=== PATIENT | female | born 1950 | race Caucasian/White ===

== ENCOUNTER 2024-06-08 14:20 | Inpatient (IN) | payer OTHER, SELFPAY ==
[2024-06-08] VITALS (51 sets, daily range): BP systolic 91–178; BP diastolic 50–136; BMI 38.9; BMI 37.4
[2024-06-08 12:07] LABS: Glucose - Point of Care 99 mg/dl (70-99)
--- NOTE | 2024-06-08 12:09 | ED.GENMED ---
History of Present Illness
General
Chief Complaint: Overdose Intentional
Source: ambulance crew
Time Seen by Provider: 06/08/24 12:09
History of Present Illness
History of Present Illness:
73-year-old female brought to the emergency by ambulance after an intentional overdose. Patient evidently consumed an unknown quantity of lorazepam tablet 0.5 mg. The bottle when prescribed contained 30 tablets. For her left. The prescription
was filled on April 15 and was a as needed prescription. There is no way to know how many pills were in the bottle prior to her taking them. There was a bottle of acetaminophen also within the region. Unclear if she took any but the paramedics felt
that bottle was mostly full. No evidence for alcohol ingestion. Paramedics state the patient was awake and alert and conversant when they initially interacted with her
Past History
Past History
ED Past Medical History: GERD, HTN, Psychiatric, Other (Diverticulitis) and Other (Iron deficiency anemia)
ED Past Surgical History: Gynecological, Orthopedic and Other
Social History
Tobacco: Non-smoker
Alcohol: None
Drug: None
Personal:
Living: with family
Employment: Not employed
Family History
Family History: Other (Noncontributory)
Phy Exam
Physical Exam
Physical Exam:
General: On initial evaluation patient was somnolent but arousable
Vitals: unremarkable
Head: Atraumatic
Eyes: Pupils equal, EOMI
Throat: Airway intact, no exudates
Neck: Trachea midline
Lungs: Clear and equal b/l
Heart: Regular rate, no murmurs
Abd: Soft, Nontender, No pulsatile mass
Neuro: Grossly nonfocal
Skin: Warm, dry, no rash
Extremities: pulses equal b/l, no edema
Course
Orders/Labs/Results
Orders:
Orders
06/08/24 11:59
Electrocardiogram (*1) Urgent
Reason for Study: Other
Other Reason for Exam: Potential overdose
Bedside Glucose- Treatment ONCE
Cardiac Monitoring- Treatment ONCE
EKG- Treatment ONCE
IV Insert/Care/Rem.- Treatment PRN
Pulse Ox/spot Check [RESP] Urgent
Quantity: 1
06/08/24 12:11
Acetaminophen Urgent
Alcohol Urgent
Complete Blood Count/With Diff Urgent
Comprehensive Metabolic Panel Urgent
Salicylate Urgent
Triglycerides Urgent
Comment: ADD ON
06/08/24 12:23
Chest X-ray Portable [CR Chest Portable - 1 View] Urgent
Comment:
Reason For Exam: post intubation
Reason Study Needs to be Portable: Unable to Transport
06/08/24 12:25
Etomidate [Amidate] 20 mg IV NOW STA
06/08/24 12:32
Propofol 1,000,000 Mcg/100 ml [Diprivan] 1,000,000 mcg in 100 ml .ROUTE .[facility]
06/08/24 12:58
0.9% Sodium Chloride 500 ml [Nss] 500 ml IV BOLUS
Propofol 1,000,000 Mcg/100 ml [Diprivan] 1,000,000 mcg in 100 ml IV NOW
Indication:: Light Sedation
Begin Infusion:: Now
Goal:: RASS 0 to -2
Maximum dose in mcg/kg/min:: 50
Initial dose based on RASS:: Yes
If RASS is:: +1 or pt hemodynamically unstable (SBP < 90mmHg), initiate at 10 mcg/kg/min
If RASS is:: +2, initiate at 20 mcg/kg/min
If RASS is:: greater than or equal to +3, initiate at 30 mcg/kg/min
Titration Instructions:: Titrate by 5-10 mcg/kg/min every 5 minutes until RASS 0 to -2 achieved.
Taper Instructions:: If RASS is at or below goal for 4 consecutive hours decrease infusion by
Taper Instructions:: 5-10 mcg/kg/min every 2 hours to off.
Over-sedation Instructions:: If CPOT 0-2 (at goal) AND RASS -3 to -5 (below goal) decrease sedative by
Over-sedation Instructions:: 50% first. If pain score remains at goal and RASS remains below goal in
Over-sedation Instructions:: 1 hour, decrease opioid infusion by 50%.
Notify provider:: immediately if patient exhibits signs/symptoms of propofol-related
Notify provider:: infusion syndrome.
Additional Instructions:: Patient MUST be mechanically ventilated and MUST receive analgesia.
06/08/24 13:01
Add On- LAB Urgent
Tests Added?: triglycerides
06/08/24 13:02
Restraints - Non Violent As Directed
Justification-Patient:: 2-Protective Intervention
Restraint Type-: Soft Limb-R Wrist/4 rails
Soft Limb-L Wrist/4rails
Apply From (date): 06/08/24
Apply from (time): 13:02
Remove (date): 06/09/24
Remove (time): 23:59
06/08/24 13:31
Fentanyl Citrate/Pf [Sublimaze] 100 mcg .ROUTE .[facility]
Fentanyl Citrate/Pf [Sublimaze] 50 mcg IV [id number] PRN
Fentanyl Citrate/Pf [Sublimaze] 90 mcg IV NOW STA
06/08/24 13:39
FentaNYL 1,000 MCG/100 ML [Sublimaze] 1,000 mcg in 100 ml IV NOW
Indication:: Light Sedation
Begin Infusion:: Now
Goal:: pain score </= 1, CPOT 0-2
Maximum dose in mcg/hr:: 300
Continue currently infusing dose and titrate:: Yes
Titration Instructions:: Titrate every 30 minutes if patient exhibits signs of pain or discomfort
Titration Instructions:: (pain score >/= 2, CPOT >/= 3).
Titration Instructions:: Administer bolus dose and increase infusion by 25 mcg/hr.
Taper Instructions:: If pain score at goal for 4 consecutive hours (pain score </= 1, CPOT 0-2)
Taper Instructions:: decrease infusion by 50 mcg/hr every 2 hours.
Taper Instructions:: When dose </= 50 mcg/hr may turn infusion off and consider PRN
Taper Instructions:: intermittent bolus doses only.
Over-sedation Instructions:: If CPOT 0-2 (goal) and RASS -3 to -5 (below goal) decrease sedative by 50%
Over-sedation Instructions:: first. If pain score remains at goal and RASS remains below goal in 1 hour,
Over-sedation Instructions:: decrease opioid infusion by 50%.
Notify provider:: immediately if pt exhibits: chest wall rigidity, hemodynamic instability,
Notify provider:: agitation/pain despite maximum dosing, pain when RASS below goal.
Additional Instructions:: Patient MUST be mechanically ventilated.
06/08/24 13:55
Admit/Transfer Patient As Directed
Co-Sign Provider:
Level of Care: Inpatient admission
Assign to:: ICU
Physician / Group: Allan Merritt
Diagnosis: Intentional Overdose Ativan
Reason for Hospitalization: Intentional Overdose Ativan
Expected length of stay greater than two midnights?: Yes
ELOS- Estimated Length of Stay in days: 5
I certify the patient meets the requirements for IP care: Yes
Arterial Blood Gas Routine
%Oxygen/Room Air: on vent
06/08/24 14:07
Code Status As Directed
Resuscitation Status: Full Code
06/08/24 14:09
Automobile Bumper Straightener Consult Routine
Consulting Provider: Gricelda Johnson
Was physician already notified: Yes
Reason for consult: intententional benzo overdose intubated
06/08/24 15:04
Labetalol HCl [Trandate] 10 mg IV Q6HPRN PRN
Metoprolol [Lopressor] 5 mg IV Q4HPRN PRN
Nitroglycerin Sublingual [Nitrostat (Sublingual)] 0.4 mg SL [id number] PRN
Pantoprazole [Protonix IV] 40 mg IV DAILY
Propofol 1,000,000 Mcg/100 ml [Diprivan] 1,000,000 mcg in 100 ml IV PER PROTOCOL
Indication:: Light Sedation
Begin Infusion:: Now
Goal:: RASS 0 to -2
Maximum dose in mcg/kg/min:: 50
Continue currently infusion dose and titrate:: Yes
Titration Instructions:: Titrate by 5-10 mcg/kg/min every 5 minutes until RASS 0 to -2 achieved.
Taper Instructions:: If RASS is at or below goal for 4 consecutive hours decrease infusion by
Taper Instructions:: 5-10 mcg/kg/min every 2 hours to off.
Over-sedation Instructions:: If CPOT 0-2 (at goal) AND RASS -3 to -5 (below goal) decrease sedative by
Over-sedation Instructions:: 50% first. If pain score remains at goal and RASS remains below goal in
Over-sedation Instructions:: 1 hour, decrease opioid infusion by 50%.
Notify provider:: immediately if patient exhibits signs/symptoms of propofol-related
Notify provider:: infusion syndrome.
Additional Instructions:: Patient MUST be mechanically ventilated and MUST recieve analgesia
06/08/24 15:04
Bladder Scan As Directed
Follow Bladder Retention/Intermittent Cath Algorithm?: Yes
Frequency: Per Retention Algorithm
Comment: as per intermittent urinary catheter algorithm
Bladder Scan As Directed
Follow Bladder Retention/Intermittent Cath Algorithm?: Yes
PRN if no void in __ hours: 6
Frequency: Per Retention Algorithm
If Bladder Scan Result >: 400
then:: Straight cath
ECG as needed As Directed
ECG as needed for:: Chest Pain
Other reason
Other reason for ECG as needed:: new suspicion of ACS
Comment: At onset of Chest Pain and then Q__H x 2. draw Troponin with each ECG
Additional Instructions:: at onset of chest pain or new suspicion of ACS:
-- ECG and Troponin urgent now
-- then ECG and Troponin with each ECG every 3 hours x total of 3,
including ED or other inpatient ECG/troponins.
Intake/ Output As Directed
Frequency: Per unit guidelines
Notify MD As Directed
Notify physician if: if patient has chest pain or new suspicion of ACS
Straight Cath As Directed
Frequency: Per Retention Algorithm
Additional Instructions: as per intermittent urinary catheter algorithm
Straight Cath As Directed
Frequency: Per Retention Algorithm
Additional Instructions: straight cath as needed per acute urinary retention algorithm for 24 hrs
Additional Instructions: for bladder scan greater than 400 mL
Vital Signs As Directed
Frequency: Per unit guidelines
Weight As Directed
Frequency: Daily
DX Deep Vein Thrombosis Video Routine
06/08/24 17:12
Triglycerides Routine
Comment: baseline levels with propofol infusion
06/08/24 18:00
Enoxaparin Sodium [Lovenox] 40 mg SC QPM
06/09/24 08:00
Polyethylene Glycol Powder [Miralax] 17 grams TUBE DAILY
06/11/24 06:00
Triglycerides Q3D
Comment: every 72 hours while patient is on propofol
06/14/24 06:00
Triglycerides Q3D
Comment: every 72 hours while patient is on propofol
06/17/24 06:00
Triglycerides Q3D
Comment: every 72 hours while patient is on propofol
Abnormal Lab Results
06/08/24 06/08/24
12:11 13:55
RBC 3.31 L 10^6/uL
(4.20-5.40)
Hgb 10.2 L g/dL
(12.0-16.0)
Hct 31.7 L %
(37.0-47.0)
MCHC 32.2 L g/dL
(33.0-37.0)
Absolute Lymphs (auto) 1.1 L 10^3/uL
(1.2-3.4)
Lymphocytes % 18.7 L %
(20.5-51.1)
Monocytes % 10.4 H %
(1.7-9.3)
pCO2 38 H mmHg
(32-35)
pO2 173 H mmHg
(83-108)
ABG O2 Sat (Measured) 99.5 H %
(94-98)
Chloride 108 H mmol/L
(98-107)
BUN 28 H mg/dl
(7-17)
Glucose 101 H mg/dl
(70-99)
Salicylates < 1.0 L mg/dl
(2.0-20.0)
Acetaminophen < 10 L ug/ml
(10-30)
06/08/24 12:11
06/08/24 12:11
Vital Signs
Initial and Last Documented VS:
Initial Vital Signs
BP
130/81
06/08/24 12:00
Last Documented Vital Signs
Temp Pulse Resp BP Pulse Ox
99.7 F 89 15 139/79 100
06/09/24 12:00 06/09/24 14:00 06/09/24 14:00 06/09/24 12:07 06/09/24 14:00
Procedures
Intubations
Procedure completed by: myself
Method of Intubation: glidescope
Tube size (cm): 7.5
Placement confirmed by: auscutation, CXR, capnography and direct visualization
Breath sounds after intubation: equal
Intubation complications: no complications
MDM/Problems Addressed
Differential Diagnosis Includes:
Benzo diazepam overdose, polypharmacy overdose, alcohol intoxication, suicide attempt
MDM/Problems Addressed:
Patient presents with decreased mental status after ingesting a reportedly large amount of benzos. Patient had a prescription for lorazepam 0.5 mg and took an unknown quantity. The patient showed a concerning rapid decrease in mental status. She
was awake and alert when paramedics first met with her. Here in the emergency room she has become obtunded and responds with movement to painful stimulus. The initial plan was for observation and supportive care. However the patient was
exhibiting periods of apnea. Given her symptoms have rapidly progressed my concern is that her mental status will worsen before it improves. Therefore we proceeded to intubation. Intubation went smoothly. We will use propofol for sedation.
Patient will obviously require hospitalization to the intensive care unit.
*Radiology
Radiology exam reviewed: preliminary read by ED provider (Personally reviewed the patient's chest x-ray endotracheal tube and NG tube noted. NG tube looks to be coiled in the upper stomach.)
*Pulse Oximetry
Patient hypoxic: no
*EKG
Interpreted by ED Provider?: Yes
Interpretation: abnormal
Heart Rate: 140
Rate: tachycardiac
Rhythm: sinus tachycardia
Jewett: normal axis
Interval: normal interval
QRS Pattern: normal QRS
Ischemia: non-specific ST changes
*Associate Professor Of Musicology Interpretation
Rate: tachycardiac
Interpretation: abnormal
Rhythm: sinus tachycardia
*Critical Care Note
Total Time (30-74mins, 75-104mins- exclusive of procedures): 45 min
comment:
Critical care statement: A total of 45 minutes of critical care time was provided for this patient. This includes management of unstable vital signs, evaluation of the patient at bedside, reviewing the patient's pertinent medical records, discussion
with consultants, review of old EKGs and review of pertinent medical records. This time with separate from time utilized to perform the aforementioned documented procedures
ED Attending Note
-
Portions of this chart may have been created with voice recognition software.� Occasional wrong word or��sound alike� substitutions may have occurred due to the inherent limitations of voice recognition software.
Discharge Plan
Departure
Patient Disposition: Admit
Date of Disposition: 06/08/24
Time of Disposition: 12:42
Admit to: ICU
Presentation/result/management discussed w/ accepting MD/DO: Hospitalist
Condition: Serious
Discharge Problem:
Benzodiazepine overdose
Interventions
Interventions:
*General Assessment Last Done: 06/08/24 12:01
*Neglect/Abuse Screening Last Done: 06/08/24 12:01
*Nursing Disposition Last Done: 06/08/24 15:19
ED- Cardiac Assessment Last Done: 06/08/24 12:20
ED- Neurological Assessment Last Done: 06/08/24 12:20
ED-Psychological Assessment Last Done: 06/08/24 12:20
ED- Pulmonary Assessment Last Done: 06/08/24 12:20
Discharge Date and Time
Discharge Date/Time: 06/08/24 15:24
[2024-06-08 12:18] LABS: % Basophils 0.7 % (0-2); % Eosinophils 0.9 % (0-6); % Immature Granulocytes 0.2 % (0-0.5); % Lymphocytes 18.7 % (20.5-51.1); % Monocytes 10.4 % (1.7-9.3); % Neutrophils 69.1 % (42.2-75.2); Absolute Eosinophils 0.1 10^3/uL (0-0.7); Absolute Lymphocytes 1.1 10^3/uL (1.2-3.4); Absolute Monocytes 0.6 10^3/uL (0.1-0.6); Hematocrit 31.7 % (37.0-47.0); Hemoglobin 10.2 g/dL (12.0-16.0); Mean Corp Hgb Conc. 32.2 g/dL (33.0-37.0); Mean Corpuscular Hgb 30.8 pg (27.0-31.0); Mean Corpuscular Volume 95.8 fL (81.0-99.0); Mean Platelet Volume 9.1 fL (7.4-10.4); Nucleated Red Blood Cells % 0 %; Platelet Count 365 10^3/uL (130-400); Red Blood Cell Count 3.31 10^6/uL (4.20-5.40); Red Cell Dist. Width 13.2 % (11.5-14.5); White Blood Cell Count 5.8 10^3/uL (4.8-10.8)
[2024-06-08] MEDS: AMIDATE 20 MG IV (12:25)
--- NOTE | 2024-06-08 12:25 | EDRN ---
intubation time 12:25 pm by MD Gunn. All necessary intubation equipment at bedside. Attempt made with glidescope. 7.5 ETT, 21 @ lip. + end tidal color change. secured on right side. Bilateral breath sounds clear. 14 tajik OG tube placed.
[2024-06-08 12:33] LABS: ALT (SGPT) 14 U/L (0-35); AST (SGOT) 28 U/L (14-36); Albumin 3.9 g/dl (3.5-5.0); Alkaline Phosphatase 74 U/L (38-126); Blood Urea Nitrogen 28 mg/dl (7-17); Calcium 9.3 mg/dl (8.4-10.2); Carbon Dioxide 24 mmol/L (22-30); Chloride 108 mmol/L (98-107); Estimated Creatinine Clearance 71 ml/min; Glucose 101 mg/dl (70-99); Potassium 4.1 mmol/L (3.5-5.1); Sodium 140 mmol/L (135-145); Total Bilirubin 0.4 mg/dl (0.2-1.3); Total Protein 6.7 g/dl (6.3-8.2); eGFR > 60.00
[2024-06-08] MEDS: DIPRIVAN 100 IV ×2 (12:38→23:05)
--- NOTE | 2024-06-08 12:44 | EDRN ---
Propofol gtt started @ 12:38. Dose started @ 10 10mcg/kg/min. Patient weight 90.4kg. Xray @ bedside @ 12:45 for portable. Bilateral upper wrist restraints applied @ 1246
[2024-06-08 12:58] LABS: Acetaminophen < 10 ug/ml (10-30); Salicylate < 1.0 mg/dl (2.0-20.0)
[2024-06-08] MEDS: NSS 500 IV (12:58)
[2024-06-08 13:00] LABS: Alcohol None Detected
--- NOTE | 2024-06-08 13:16 | HPS.HSE ---
Family Physician
-
Family Physician: MIGUE Mercedes
Chief Complaint
-
Intentional overdose benzo
History of Present Illness
73 female history of GERD diverticulosis hypertension brought in by ambulance after intentional overdose home as needed prescribed Ativan. Patient intubated at time of evaluation all of history from records and from patient's daughter Paulette's
report. Patient going through a divorce with her , had reportedly called her brother to say goodbye prompting family to contact emergency services. Patient was subsequently found at home with empty bottle prescribed as needed Ativan.
Refusing medical services. Family 302 her and she was subsequently brought to the ED. ED evaluation was concerning for progressive lethargy altered mental status. Patient had essentially become up to and did nonresponsive to painful stimulus
exhibiting episodes of apnea prompting intubation for airway protection. Hypotensive sinus tachycardia. Labs were negative for Tylenol salicylate levels rest of toxicology pending. Mild anemia otherwise CBC BMP unremarkable.
Medical History
Past Medical History
Past Medical History: Reports Other (as above)
Past Surgical History: Reports Other (as above)
Social History
Unable to obtain full social history at this time due to: Patient Intubation
Family History
Family History: Unable to Obtain
Allergies / Home Medications
Allergies reflects when Allergies were last updated in [facility].
Home Medications with original date entered in [facility]
Allergy/Medication List:
Allergies
Allergy/AdvReac Type Severity Reaction Status Date / Time
metronidazole [From Flagyl] Allergy IV- Verified 05/18/23 16:[address]
swelling
Penicillins Allergy Rash Verified 05/18/23 16:50
Home Medications
escitalopram oxalate 10 mg tablet 10 mg PO DAILY Mental Health/Anxiety 05/16/23
hydrochlorothiazide 25 mg tablet 25 mg PO DAILY Blood Pressure 05/16/23
losartan 100 mg tablet 50 mg PO DAILY Blood Pressure 05/16/23
pantoprazole 40 mg tablet,delayed release 40 mg PO DAILY #30 tabs 05/27/23
lorazepam 0.5 mg tablet 0.5 mg PO Q8HPRN PRN anxiety 06/08/24
meloxicam 15 mg tablet 15 mg PO DAILY 06/08/24
mesalamine 400 mg capsule (with delayed release tablets inside) 800 mg PO BID 06/08/24
Review of Systems
-
Unable to obtain full review of systems at this time due to: Patient Intubation
Physical Exam
Vital Signs
Vital Signs
Temp Pulse Resp BP Pulse Ox
98.1 F 129 16 177/113 100
06/08/24 12:01 06/08/24 13:00 06/08/24 13:00 06/08/24 13:00 06/08/24 13:00
Physical Exam
General: Other (as below)
Laboratory Results
-
06/08/24 12:11
06/08/24 12:11
Laboratory Results
Total Bilirubin 0.4 mg/dl (0.2-1.3) 06/08/24 12:11
AST 28 U/L (14-36) 06/08/24 12:11
ALT 14 U/L (0-35) 06/08/24 12:11
Alkaline Phosphatase 74 U/L (38-126) 06/08/24 12:11
Impression/Plan
-
Physical Exam
General: No pallor, cyanosis, or jaundice. Obesity
HEENT: Intubated pinpoint pupils b/l
NECK: Supple. No JVD Carotid Bruits
RESPIRATORY: Lungs clear to auscultation. Ventilatory machine noises
CVS: Sinus tachy. No murmur, rub or gallop.
ABDOMEN: Soft, non-tender. No distension. BS+/normal.
EXTREMITIES: No peripheral cyanosis or edema. Tattoo noted
EDUCATIONAL RESOURCE COORDINATOR: Sedated
IMPRESSION:
73 female history of GERD diverticulosis hypertension brought in by ambulance after intentional overdose home as needed prescribed Ativan. Patient intubated at time of evaluation all of history from records and from patient's daughter Paulette's
report. Patient going through a divorce with her , had reportedly called her brother to say goodbye prompting family to contact emergency services. Patient was subsequently found at home with empty bottle prescribed as needed Ativan.
Refusing medical services. Family 302 her and she was subsequently brought to the ED. ED evaluation was concerning for progressive lethargy altered mental status. Patient had essentially become up to and did nonresponsive to painful stimulus
exhibiting episodes of apnea prompting intubation for airway protection. Hypotensive sinus tachycardia. Labs were negative for Tylenol salicylate levels rest of toxicology pending. Mild anemia otherwise CBC BMP unremarkable.
PLAN:
#Suicide attempt
#Intentional benzo overdose
Intubated for airway protection 06/08
ICU admit
Entry Level Account Representative radhikaal appreciated
Vent settings as per ICU
Propofol Fentanyl sedation as needed
Follow-up blood gas
Follow-up toxicology results
#Hypertensive urgency
Labetalol as needed
Resume home antihypertensive medications when oral medications are feasible
#Sinus tachycardia
Lopressor as needed heart rate persistently greater than 120
#Anxiety/depression
hold home antidepressant while intubated sedated. Can consider resuming when clear for oral medication
DVT prophylaxis Lovenox
GI prophylaxis Protonix
Full code
Total Critical Care Time__40___ minutes. I was immediately available to the patient and staff. I personally examined, reviewed labs, diagnostic images/reports, interpretations, treatment plans, discussed patient care with other providers and
family or caregivers (if patient is unable to make decisions), entered orders as appropriate and documented the medical record.
--- NOTE | 2024-06-08 13:22 | CON.INTV ---
Consultation
Consultation Request
Date/Time Consultation Requested: 06/08/24
Date/Time Consultation Performed: 06/08/24
Performing Provider: Elizabeth
Reason for Consultation: Critical Care
Medical History
-
History of Present Illness:
Patient is a 73-year-old female with previous history of GERD, diverticulitis, hypertension presenting from home with intentional suicidal overdose of lorazepam. She consumed an unknown quantity of lorazepam 0.5mg tablets, she was found with a
bottle which was filled with 30 tablets, only 4 tablets noted left inside. EMS was notified by family, paramedics stated that patient was alert and awake on arrival. While in the ER, patient became suddenly unresponsive, she was intubated for
airway protection.
This was noted to be a suicide attempt as she is undergoing divorce with her .
There is no further history obtained, family is not present at bedside. She is intubated on my arrival to the ER.
Past Medical History
Past Medical History: Other (see below)
Social History
Tobacco: Non-smoker
Alcohol: None
Drug: None
Family History
Family History: Reviewed & Not Pertinent
Allergies / Home Medications
Allergies
Allergy/AdvReac Type Severity Reaction Status Date / Time
metronidazole [From Flagyl] Allergy IV- Verified 05/18/23 16:[address]
swelling
Penicillins Allergy Rash Verified 05/18/23 16:50
Home Medications
�Medication �Instructions �Recorded �Confirmed �Last Taken �Type
escitalopram oxalate 10 mg tablet 10 mg PO DAILY Mental 05/16/23 06/08/24 05/17/23 History
Health/Anxiety
hydrochlorothiazide 25 mg tablet 25 mg PO DAILY Blood Pressure 05/16/23 06/08/24 05/15/23 History
losartan 100 mg tablet 50 mg PO DAILY Blood Pressure 05/16/23 06/08/24 Unknown History
pantoprazole 40 mg tablet,delayed 40 mg PO DAILY #30 tabs 05/27/23 06/08/24 Unknown Rx
release
lorazepam 0.5 mg tablet 0.5 mg PO Q8HPRN PRN anxiety 06/08/24 06/08/24 Unknown History
meloxicam 15 mg tablet 15 mg PO DAILY 06/08/24 06/08/24 Unknown History
mesalamine 400 mg capsule (with 800 mg PO BID 06/08/24 06/08/24 Unknown History
delayed release tablets inside)
Review of Systems
-
History Source: Patient
All other systems: Negative unless noted
Vitals / Labs / Diagnostic Testing
Vital Signs
Temp Pulse Resp BP Pulse Ox
98.1 F 129 16 177/113 100
06/08/24 12:01 06/08/24 13:00 06/08/24 13:00 06/08/24 13:00 06/08/24 13:00
Lab Data
06/08/24 12:11
06/08/24 12:11
Diagnostic Testing:
Physical Exam
-
HEENT: Normocephalic, Anicteric and Moist Mucous Membranes
Cardiovascular: S1/S2 and Regular Rhythm
Respiratory: Clear, Non-Labored Respirations and Other (ETT)
GI: Soft, Non Distended and Non Tender
Neurology: Awake, Alert, Oriented, AO x 3 and No Motor Deficits
Skin: Warm, Dry and Good Color
General: Comfortable and Other (sedated/intubated)
Assessment
-
Patient is a 73-year-old female with previous history of GERD, diverticulitis, hypertension presenting from home with intentional suicidal overdose of lorazepam. She consumed an unknown quantity of lorazepam 0.5mg tablets, she was found with a
bottle which was filled with 30 tablets, only 4 tablets noted left inside. EMS was notified by family, paramedics stated that patient was alert and awake on arrival. While in the ER, patient became suddenly unresponsive, she was intubated for
airway protection. Admitted to ICU.
Sudden unresponsiveness status post intubation for airway protection
Intentional overdose of lorazepam, unknown quantity
Suicide attempt
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
Diverticulitis
Hospitalization at for colitis 04/2023
Chronic diarrhea
Chronic anemia, RANJIT
GERD
HTN
Plan
Sedated on propofol
Psychiatric history noted but unclear what
Pain/sedation: can wean sedation, unclear how much ativan take
Supportive care, await half life elimination
RASS goals: 0 to -2 while intubated
Hemodynamically stable, not requiring pressors.
Cardiac history reviewed--HTN
Currently very hypertensive, can add gtt if needed
No prior ECHO for review
Resume home meds
Monitor on telemetry
Intubated for airway protection
Vent setting reviewed: AC 450/16/40/5
Obtain ABG
Prior history of lung disease: none
Supplemental O2 as indicated to maintain sats > 89%
CXR/CT reviewed indicating NAD, ETT in good position
NPO, resume diet when able
Panman recommendations
Aspiration precautions, HOB > 30 degrees
Speech therapy eval can be considered if at elevated risk
GI prophylaxis if indicated for mechanical ventilation >48 hours, prior history of GERD, stress ulcer formation in the critically ill
Creat at baseline, no history of renal disease
Void trials
Follow urine output, critical I/Os
Replete electrolytes as needed
No signs/symptoms suspicious for infectious etiology at this time
Observe off antibiotics for now
Follow fever trend, WBC count
CBC stable, no signs of bleeding or coagulopathy.
DVT prophylaxis as assessed based on risk, including mechanical SCDs
Can transfuse if indicated for Hb <7, plt < 10
INR WNL
No prior h/o diabetes or thyroid disease
Monitor accuchecks PRN/SS coverage if needed
Discussed case with ER, reviewed prior records
We will follow
Diagnostic Data
Chest X-Ray: 05/20/23- 1. New right upper extremity PICC line in place with the catheter tip located at the cavoatrial junction.
2. Moderate-sized hiatal hernia.
3. Mild subsegmental atelectasis and scarring in both lower lungs.
05/18/23 flex sig - Normal mucosa from 1 to 20 cm proximal to the anus. - Congested, erythematous, granular and thickened folds of the mucosa at 22 cm proximal to the anus was so inflamed and congested it was obstructing the lumen and unable to
safely get through despite water insufflation and using an EGD scope. Biopsied. The sigmoid and biopsies showing normal glandular architecture negative for microscopic colitis. Endoscopically significant edema in the distal sigmoid. So edematous
could not find the lumen despite using an upper GI scope. Biopsies of this area show edematous change with focal cryptitis, negative for dysplasia negative for carcinoma. No architectural distortion suggesting chronic colitis. No ischemic type
change. No viral cytopathic effect
05/19/23 CT angio increased wall thickening transverse to rectum. lack of significant narrowing involving the origins of the celiac artery and the SMA. This finding would make ischemic colitis significantly less likely as the cause of patient's
colitis.Small focus of air within the mesentery adjacent to the sigmoid colon within the pelvis. This could either represent a prominent diverticulum or a small focus of contained extraluminal air. No evidence of free intraperitoneal air. No
evidence for focal abscess. Small to moderate hiatal hernia, extending into the medial aspect of the left lower hemithorax.
CT Scan:
Echo:
PFT's:
Reports and relevant images were personally reviewed.
-----
Critical care time 75 mins -- this includes review of history, physical exam, medications, hemodynamic/ventilator parameters, laboratory data, imaging and discussion with house staff, pharmacy, respiratory therapy, email campaign specialist, and nursing.
[2024-06-08 13:32] LABS: Triglycerides 81 mg/dl (10-149)
[2024-06-08] MEDS: SUBLIMAZE 90 MCG IV (13:34)
[2024-06-08] MEDS: SUBLIMAZE 100 IV (13:56)
[2024-06-08 14:02] LABS: B.E. -1.1 mmol/L; HCO3 23.5 mmol/L (21-28); O2 Saturation % 99.5 % (94-98); PCO2 38 mmHg (32-35); PO2 173 mmHg (83-108)
[2024-06-08] MEDS: NSS (PRESERVATIVE FREE) 10 ML IV (17:04)
[2024-06-08] MEDS: PROTONIX IV 40 MG IV (17:04)
[2024-06-08 17:41] LABS: INR 1.07; PT 13.7 Sec (11.4-14.6)
[2024-06-08] MEDS: SUBLIMAZE 50 MCG IV (17:51)
[2024-06-08] MEDS: LOVENOX 40 MG SC (17:51)
[2024-06-08 18:14] LABS: APTT 24.1 Sec (23.4-35.0)
[2024-06-08 18:39] LABS: Magnesium 1.9 mg/dl (1.6-2.3); Triglycerides 95 mg/dl (10-149)
--- NOTE | 2024-06-08 18:39 | PTCARENOTE ---
Pt admitted to ICU bed 3368 from ED around 1500. Pt on vent A/C 16/450/40/5. Received on Fentanyl and Propofol. Pt opens eyes and becomes agitated with care. Sinus rhythm with PACs. OG tube to ADAM. Stu placed. Restraints on per order.
[2024-06-08 18:40] LABS: Amphetamines Negative (Negative); Barbiturates Negative (Negative); Benzodiazepines Positive (Negative); Buprenorphine Negative (Negative); Cocaine Negative (Negative); Marijuana Negative (Negative); Methadone Negative (Negative); Methamphetamines Negative (Negative); Opiates Negative (Negative); Phencyclidine Negative (Negative); Tricyclic Antidepressants Negative (Negative)
[2024-06-08 18:59] LABS: Fentanyl, Urine Positive (Negative)
--- NOTE | 2024-06-08 21:09 | PTCARENOTE ---
Assumed care of pt at 1900. Received pt intubated (#7.5 ETT/21cm at lip) AC 16/450/40/5, sedated on Propofol at 30mcg/kg/min and Fentanyl at 75mcg/hr. SR 80s on monitor, SpO2 100% on current vent settings. Physical assessment completed, see nursing
shift assessment flowsheet for full details.
[2024-06-09] VITALS (18 sets, daily range): BP systolic 85–169; BP diastolic 57–100; BMI 37.3
--- NOTE | 2024-06-09 00:35 | PTCARENOTE ---
Assessment unchanged. Remains on same vent settings, same sedation. Pt becomes agitated with care, attempts to move arms up towards ETT, will calm down again once left alone. SR 80s on monitor. SpO2 100%.
[2024-06-09] MEDS: SUBLIMAZE 100 IV (02:02)
[2024-06-09 04:05] LABS: B.E. 0.5 mmol/L; HCO3 22.9 mmol/L (21-28); PCO2 28 mmHg (32-35); PO2 184 mmHg (83-108); pH 7.52 (7.35-7.45)
[2024-06-09] MEDS: DIPRIVAN 100 IV (04:29)
--- NOTE | 2024-06-09 04:30 | PTCARENOTE ---
Assessment unchanged. CHG bath done around 021, linens/gown changed. Pt more awake afterwards, able to follow simple commands, shook head no when asked if she was in pain. Explained to pt that she is in the hospital, in the ICU, and has a breathing
tube in, pt squeezed eyes shut and started crying, reassurance/emotional support provided. Pt fell asleep again once left alone. Remains on same vent settings and sedation. SR 80s on monitor.
[2024-06-09 05:13] LABS: Blood Urea Nitrogen 23 mg/dl (7-17); Carbon Dioxide 25 mmol/L (22-30); Chloride 108 mmol/L (98-107); Estimated Creatinine Clearance 60 ml/min; Glucose 86 mg/dl (70-99); Magnesium 1.9 mg/dl (1.6-2.3); Phosphorus 3.1 mg/dl (2.5-4.5); Potassium 3.7 mmol/L (3.5-5.1); Sodium 140 mmol/L (135-145); eGFR > 60.00
--- NOTE | 2024-06-09 07:08 | W.PN.INTV ---
Addendum entered and electronically signed by Gricelda Johnson DO 06/09/24 10:12:
Transfer initiated to tele, we will sign off at this time
Please call with questions
Original Note:
Today's Communication / Plan
Recommendations
SAT and SBT planning, extubate if passes
Assess PO intake and mental status; per family, may need 302
1:1
Consider psych eval
Can likely transfer to floors if stable post extubation
Assessment
-
Patient is a 73-year-old female with previous history of GERD, diverticulitis, hypertension presenting from home with intentional suicidal overdose of lorazepam. She consumed an unknown quantity of lorazepam 0.5mg tablets, she was found with a
bottle which was filled with 30 tablets, only 4 tablets noted left inside. EMS was notified by family, paramedics stated that patient was alert and awake on arrival. While in the ER, patient became suddenly unresponsive, she was intubated for
airway protection. Admitted to ICU.
Sudden unresponsiveness status post intubation for airway protection
Intentional overdose of lorazepam, unknown quantity
Suicide attempt
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
Diverticulitis
Hospitalization at for colitis 04/2023
Chronic diarrhea
Chronic anemia, RANJIT
GERD
HTN
Plan
Sedated on propofol
Psychiatric history noted but unclear what
Pain/sedation: can wean sedation, unclear how much ativan take
Supportive care, await half life elimination
RASS goals: 0 to -2 while intubated
SAT trials this AM
Hemodynamically stable, not requiring pressors.
Cardiac history reviewed--HTN
No prior ECHO for review
Resume home meds
Monitor on telemetry
Intubated for airway protection, SBT planning today
Vent setting reviewed: AC 450/16/40/5
Obtain ABG--adequate
Prior history of lung disease: none
Supplemental O2 as indicated to maintain sats > 89%
CXR/CT reviewed indicating NAD, ETT in good position
SBT with plan to extubate today
NPO, resume diet when able
Executive Account Manager recommendations
Aspiration precautions, HOB > 30 degrees
Speech therapy eval can be considered if at elevated risk
GI prophylaxis if indicated for mechanical ventilation >48 hours, prior history of GERD, stress ulcer formation in the critically ill
Creat at baseline, no history of renal disease
Void trials
Follow urine output, critical I/Os
Replete electrolytes as needed
No signs/symptoms suspicious for infectious etiology at this time
Observe off antibiotics for now
Follow fever trend, WBC count
CBC stable, no signs of bleeding or coagulopathy.
DVT prophylaxis as assessed based on risk, including mechanical SCDs
Can transfuse if indicated for Hb <7, plt < 10
INR WNL
No prior h/o diabetes or thyroid disease
Monitor accuchecks PRN/SS coverage if needed
Diagnostic Data
Chest X-Ray: 05/20/23- 1. New right upper extremity PICC line in place with the catheter tip located at the cavoatrial junction.
2. Moderate-sized hiatal hernia.
3. Mild subsegmental atelectasis and scarring in both lower lungs.
05/18/23 flex sig - Normal mucosa from 1 to 20 cm proximal to the anus. - Congested, erythematous, granular and thickened folds of the mucosa at 22 cm proximal to the anus was so inflamed and congested it was obstructing the lumen and unable to
safely get through despite water insufflation and using an EGD scope. Biopsied. The sigmoid and biopsies showing normal glandular architecture negative for microscopic colitis. Endoscopically significant edema in the distal sigmoid. So edematous
could not find the lumen despite using an upper GI scope. Biopsies of this area show edematous change with focal cryptitis, negative for dysplasia negative for carcinoma. No architectural distortion suggesting chronic colitis. No ischemic type
change. No viral cytopathic effect
05/19/23 CT angio increased wall thickening transverse to rectum. lack of significant narrowing involving the origins of the celiac artery and the SMA. This finding would make ischemic colitis significantly less likely as the cause of patient's
colitis.Small focus of air within the mesentery adjacent to the sigmoid colon within the pelvis. This could either represent a prominent diverticulum or a small focus of contained extraluminal air. No evidence of free intraperitoneal air. No
evidence for focal abscess. Small to moderate hiatal hernia, extending into the medial aspect of the left lower hemithorax.
CT Scan:
Echo:
PFT's:
Reports and relevant images were personally reviewed.
-----
Critical care time 40 mins -- this includes review of history, physical exam, medications, hemodynamic/ventilator parameters, laboratory data, imaging and discussion with house staff, pharmacy, respiratory therapy, multifocal lens assembler, and nursing.
Subjective Dataa
Subjective Data
Date of Service:
Date of Service: June 09, 2024
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
Subjective:
no events ON, remains intubated
on prop/fent
Objective Data
Data Reviewed
Vital Signs / I&O / Oxygen:
Vital Signs
Temp Pulse Resp BP Pulse Ox
99.0 F 78 16 88/57 99
06/09/24 03:17 06/09/24 06:00 06/09/24 06:00 06/09/24 06:00 06/09/24 06:00
Intake and Output
06/08/24 06/09/24 06/10/24
06:59 06:59 06:59
Intake Total 320.6 / 320.6
Output Total 825 / 825
Balance -504.4 / -504.4
SaO2 [A/C] 100
SaO2 99
Physical Exam
General: Comfortable and Other (NAD)
HEENT: Normocephalic, Anicteric and Moist Mucous Membranes
Cardiovascular: S1-S2 and Regular Rhythm
Respiratory: Clear, Non-Labored Respirations and ET Tube
GI: Soft, Non Distended and Non Tender
Neurology: Other (sedated)
Skin: Warm, Dry and Good Color
Labs/Micro/Reports
Lab Data
06/09/24 04:23
Laboratory Results
06/08/24 06/08/24 06/09/24
13:55 17:12 03:56
PT 13.7
INR 1.07
APTT 24.1
pH 7.40 7.52 H
pCO2 38 H 28 L
pO2 173 H 184 H
HCO3 23.5 22.9
O2 Delivery Level
--- NOTE | 2024-06-09 07:10 | W.PN.HOSP.TC ---
Today's Communication/Plan
-
1:1
psych eval
stable for downgrade to Tele
Assessment / Plan
Assessment / Plan
Physical Exam
General: No pallor, cyanosis, or jaundice. Obesity
HEENT: normocephalic atraumatic pinpoint pupils b/l
NECK: Supple. No JVD Carotid Bruits
RESPIRATORY: Lungs clear to auscultation.
CVS: Sinus tachy. No murmur, rub or gallop.
ABDOMEN: Soft, non-tender. No distension. BS+/normal.
EXTREMITIES: No peripheral cyanosis or edema. Tattoos noted
COMPUTER VIDEO GAME DESIGNER: Awake alert nonverbal communicating with head gestures
IMPRESSION:
73 female history of GERD diverticulosis hypertension brought in by ambulance after intentional overdose home as needed prescribed Ativan. Patient intubated at time of evaluation all of history from records and from patient's daughter Paulette's
report. Patient going through a divorce with her , had reportedly called her brother to say goodbye prompting family to contact emergency services. Patient was subsequently found at home with empty bottle prescribed as needed Ativan.
Refusing medical services. Family 302 her and she was subsequently brought to the ED. ED evaluation was concerning for progressive lethargy altered mental status. Patient had essentially become up to and did nonresponsive to painful stimulus
exhibiting episodes of apnea prompting intubation for airway protection. Hypotensive sinus tachycardia. Toxicology was negative for Tylenol salicylate levels, positive for fentanyl (possibly given here for intubation) and benzo.
PLAN:
#Suicide attempt
#Intentional benzo overdose
#Anxiety/depression
Intubated for airway protection 06/08
Admitted to ICU
Folding Machine Tender eval appreciated, following breathing trials, patient was extubated to nasal cannula 06/09 Medically stable for downgrade to Tele.
cont 1:1
psych eval appreciated pt 302
#Hypertensive urgency resolved
Labetalol as needed
BP relatively at goal at this time
eventually resume home antihypertensives as BP increases.
#Sinus tachycardia
Lopressor as needed heart rate persistently greater than 120
DVT prophylaxis Lovenox
GI prophylaxis Protonix
Full code
Discussed with patient's daughter Rangel over phone
I spent a total of 50 minutes with the patient or on the floor. More than 50% of this time involved counseling and coordination of care.
Anticipated Discharge: 24 - 48 hours
Subjective/Interval History
-
Date of Service: June 09, 2024
Extubated in AM to nasal cannula. Patient appears well though refusing to speak. Communications via head gestures. Appears almost tearful.
Objective Data
-
Labs:
Laboratory Results
06/09/24 06/09/24 06/09/24
03:56 04:23 06:37
WBC Cancelled Pending
Hgb Cancelled Pending
Hct Cancelled Pending
Plt Count Cancelled Pending
HCO3 22.9
Sodium 140
Potassium 3.7
Chloride 108 H
Carbon Dioxide 25
BUN 23 H
Creatinine 0.8
Glucose 86
Calcium 9.0
Vital Signs:
Vital Signs
Temp Pulse Resp BP Pulse Ox
99.0 F 78 16 88/57 99
06/09/24 03:17 06/09/24 06:00 06/09/24 06:00 06/09/24 06:00 06/09/24 06:00
I&O
06/08/24 06/09/24 06/10/24
06:59 06:59 06:59
Intake Total 320.6 / 320.6
Output Total 825 / 825
Balance -504.4 / -504.4
[2024-06-09 07:38] LABS: Hematocrit 29.7 % (37.0-47.0); Hemoglobin 9.7 g/dL (12.0-16.0); Mean Corp Hgb Conc. 32.7 g/dL (33.0-37.0); Mean Corpuscular Hgb 31.4 pg (27.0-31.0); Mean Corpuscular Volume 96.1 fL (81.0-99.0); Mean Platelet Volume 9.1 fL (7.4-10.4); Platelet Count 305 10^3/uL (130-400); Red Blood Cell Count 3.09 10^6/uL (4.20-5.40); Red Cell Dist. Width 13.2 % (11.5-14.5); White Blood Cell Count 8.4 10^3/uL (4.8-10.8)
[2024-06-09] MEDS: NSS (PRESERVATIVE FREE) 10 ML IV (07:59)
[2024-06-09] MEDS: PROTONIX IV 40 MG IV (07:59)
[2024-06-09] MEDS: MIRALAX TUBE (07:59)
--- NOTE | 2024-06-09 08:22 | PTCARENOTE ---
recd pt 0715, repeat CBC obtained, ETT to vent tolerating settings, when stimulated, eyes open, tearful, gesturing at self, making gestures at ETT. see assessment, skin warm and dry, support given, safe environment maintained. seen by Dr. Santa.
weaning meds as noted, see intervention, with plans to evaluate for extubation. zambrano draining. nods yes/no, seems to follow simple commands, tearful when spoken to, reassured she is safe. repositioned for comfort.
--- NOTE | 2024-06-09 08:58 | PTCARENOTE ---
spoke with daughter Rangel, updated, states there is a 302 that will be enforced if pt doesn't agree to obtain help. Notes that divorce papers were served this past Tuesday. Case management consult placed. off sedation and pain med, continuing on
cp/ps wean.
--- NOTE | 2024-06-09 09:24 | PTCARENOTE ---
extubated smoothly 0920 to 4l nc, quiet, flat, nods with great encouragement. VS remain stable. OG tube also removed.
--- NOTE | 2024-06-09 09:28 | CM ---
Addendum entered by Jennifer Sosa RN 06/09/24 12:38:
CM called Mental Health Delegate with [address] Mos[address]. Adan called back with 11:57 warrant time. CM updated psychiatrist, hospitalist and bedside RN. CM will call for hearing on Tuesday for Tuesday 303 hearing.
Addendum entered by Jennifer Sosa RN 06/09/24 10:51:
CM spoke with Mental Health Delegate Adan who stated there is a Petition, but unclear if it was ever upheld. CM will await return call.
Addendum entered by Jennifer Sosa RN 06/09/24 10:37:
CM left message for [facility] Mental Health Delegate.
Addendum entered by Jennifer Sosa RN 06/09/24 10:14:
CM spoke with [facility]. Officer stated that patient was seen by their Co-responder Jodi Shravancrystal. CM left message for Jodi at [phone]
Original Note:
CM spoke with patient's RN regarding 302. As per RN, patient's family stated that they '302'' patient in the field. As per Emergency room notes, there was no 302 at the time. CM spoke with crisis who stated that they have not had any contact with
patient since 2019.
CM left message for patient's daughter to discuss 302. Patient remains intubated and pending psychiatry consult. CM will continue to follow.
--- NOTE | 2024-06-09 09:34 | RESPNOTE ---
Patient extubated to a 4L nasal cannula following cpap trial per Dr Santa.
[2024-06-09] MEDS: LOPRESSOR 5 MG IV (12:07)
--- NOTE | 2024-06-09 12:27 | PTCARENOTE ---
sudden unprovoked tachycardia, denies pain, valsalva attempted with no effect. 12 lead obtained to confirm sinus, see EMR. med with lopressor 5 mg IV as ordered. resting, repositioned, no c/o, refuses lunch, takes small sips with encouragement.
--- NOTE | 2024-06-09 12:36 | CON.MD ---
Consultation - Medical
-
patient seen chart reviewed. discussed w nursing and w dr hudson. the patient is a 73 year old woman who overdosed on a number of ativan tablets (maybe about 26). she called her bro to say goodbye and police were called and she was brought to . she
required intubation given apnea but has now been extubated. the patient is not happy to be alive at this point. says she has nothing to look forward to and despite three d's she seems to feel no supports. it is noted in record that she is
but i could get no real hx from her about the decision process. she said her h is now living w her d 'who waits on him hand and foot'. she was mostly focused on how bad a person her was...that he drank constantly during their 50 year
marriage, that she supported him for the most part etc. the patient has not been sleeping . nor has she been eating well. she indicated that she just doesn't care about anything anymore. she continues to have thoughts of being but did not
answer when i asked about a plan. she had been taking lexapro but could not tell me when it was started and by whom. she had apparently stopped meds in the last several days. she also had a scrip for prn ativan there is nothing to suggest psychosis.
there is a backup 302 which has not been called in
past psych hx no hospitalizations had been taking lexapro ten mg
medical hx overdose see above anemia gerd diverticulitis hiatal hernia w gerd htn diarrhea meds include hctz losartan pantoprazole meloxicam ativan prn and lexapro mesalamine
substance abuse adamantly denied
family hx denied
social resided w h see above divorce may be in the future three kids grandkids worked for years for [employer] supported her unable to get complete hx as patient very focused on issues w and her difficult life i am told by
nursing that patient's home is very disordered given hoarding but patient did not divulge this info
mse alert ox3 patient very tearful patient focused entirely on how painful her life w her is and has been. she was clearly angry as well but despair seemed to be the predominant emotion. she remains suicidal. she is depressed affect is
labile no psychosis aver intell insight judgment impaired.
dx major depression recurrent severe
plan for now hold off on antidepressants. patient very much at risk for hurting self so continue one to one. will process the 302 backup and i will uphold it as i am concerned patient will ask to sign out ama and she is clearly at risk to harm
herself.
[2024-06-09] MEDS: LOVENOX 40 MG SC (17:48)
--- NOTE | 2024-06-09 17:50 | PTCARENOTE ---
sat on side of bed, ate very small amount dinner with much encouragement. ambulated with assist and RW to bathroom, voided mod amt clear yellow, missed collection device in toilet. brushed own teeth at sink, back to bed, able to get in and out of
bed. tearful. 'I have 3 birds at home, I'm not ready to lose them, I hope someone is feeding them' 1:1 maintained.
--- NOTE | 2024-06-09 22:19 | PTCARENOTE ---
Assumed care of pt at 1900. Pt under 1:1 observation for S.I. A/O x3, flat affect noted, pt is withdrawn and tearful. Follows commands, answers questions appropriately. Able to make needs known, able to reposition herself in bed. Physical assessment
completed, see nursing shift assessment flowsheet for full details. SR 80s-9s on monitor, occasionally ST low 100s. SpO2 92-94% on RA. Pt's daughter Paulette came to unit with some of pt's personal effects (stuffed animals, blanket, toiletries), items
looked over by staff, pt's personal blanket and stuffed animal given to her, pt was asleep and did not see/speak to her daughter at that time. Pt currently telemetry level of care. Safe environment maintained.
[2024-06-10] VITALS (7 sets, daily range): BP systolic 105–140; BP diastolic 56–98; BMI 36.8
[2024-06-10] MEDS: TYLENOL 650 MG PO ×2 (02:52→12:38)
[2024-06-10 06:16] LABS: Hematocrit 29.6 % (37.0-47.0); Hemoglobin 9.6 g/dL (12.0-16.0); Mean Corp Hgb Conc. 32.4 g/dL (33.0-37.0); Mean Corpuscular Hgb 31.7 pg (27.0-31.0); Mean Corpuscular Volume 97.7 fL (81.0-99.0); Mean Platelet Volume 9.1 fL (7.4-10.4); Platelet Count 287 10^3/uL (130-400); Red Blood Cell Count 3.03 10^6/uL (4.20-5.40)
[2024-06-10] MEDS: LOPRESSOR 5 MG IV (06:49)
[2024-06-10 06:56] LABS: Blood Urea Nitrogen 21 mg/dl (7-17); Calcium 9.3 mg/dl (8.4-10.2); Carbon Dioxide 26 mmol/L (22-30); Chloride 107 mmol/L (98-107); Estimated Creatinine Clearance 60 ml/min; Glucose 84 mg/dl (70-99); Magnesium 1.8 mg/dl (1.6-2.3); Phosphorus 4.2 mg/dl (2.5-4.5); Sodium 141 mmol/L (135-145); eGFR > 60.00
--- NOTE | 2024-06-10 07:00 | W.PN.HOSP.TC ---
Today's Communication/Plan
-
Pain control
1:1 as per Psych
Metoprolol with holding parameters
302
Remains stable for downgrade to Tele
Assessment / Plan
Assessment / Plan
Physical Exam
General: No pallor, cyanosis, or jaundice. Obesity
HEENT: normocephalic atraumatic pinpoint pupils b/l
NECK: Supple. No JVD Carotid Bruits. Restricted range of motion d/t pain/stiffness
RESPIRATORY: Lungs clear to auscultation. Stable respiratory status on room air
CVS: Sinus tachy. No murmur, rub or gallop.
ABDOMEN: Soft, non-tender. No distension. BS+/normal.
EXTREMITIES: No peripheral cyanosis or edema. Tattoos noted. Lt shoulder tenderness restricted range of motion d/t pain
DIP BRAZIER: AOx3
IMPRESSION:
73 female history of GERD diverticulosis hypertension brought in by ambulance after intentional overdose home as needed prescribed Ativan. Patient intubated at time of evaluation all of history from records and from patient's daughter Paulette's
report. Patient going through a divorce with her , had reportedly called her brother to say goodbye prompting family to contact emergency services. Patient was subsequently found at home with empty bottle prescribed as needed Ativan.
Refusing medical services. Family 302 her and she was subsequently brought to the ED. ED evaluation was concerning for progressive lethargy altered mental status. Patient had essentially become up to and did nonresponsive to painful stimulus
exhibiting episodes of apnea prompting intubation for airway protection. Hypotensive sinus tachycardia. Toxicology was negative for Tylenol salicylate levels, positive for fentanyl (possibly given here for intubation) and benzo.
PLAN:
#Suicide attempt
#Intentional benzo overdose
#Major Depression d/o
Intubated for airway protection 06/08
Admitted to ICU
Nurse Discharge Planner eval appreciated, following breathing trials, patient was extubated to nasal cannula 06/09 Downgraded to Tele.
cont 1:1
psych eval appreciated pt 302
#Hypertensive urgency resolved
Labetalol as needed
BP relatively at goal at this time
eventually resume home antihypertensives as BP increases.
#Sinus tachycardia
Lopressor as needed heart rate persistently greater than 120
low dose metoprolol 12.5 mg XL daily started with holding parameters
check ECHO Tuesday
Denies hx drinking, no significant withdrawal symptoms noted
#Left side neck, Lt Shoulder pain arthritis/muscle stiffness
musculoskeletal pain
Cervical and Lt Shoulder XR appreciated no acute abn's
prn Tylenol
baclofen 5 mg TID w/ holding parameters
Lidocaine patch
bengay-like cream
tramadol prn
pt reports previously being told by GI to avoid Ibuprofen for unspecified reasons
PT/OT eval
DVT prophylaxis Lovenox
GI prophylaxis Protonix
Full code
Discussed with patient's daughter Rangel over phone
I spent a total of 50 minutes with the patient or on the floor. More than 50% of this time involved counseling and coordination of care.
Anticipated Discharge: 24 - 48 hours
Subjective/Interval History
-
Date of Service: June 10, 2024
Seen and examined at bedside in no acute distress sitting up comfortably in chair. More positive today engaging in conversation (as opposed to yesterday when she was refusing to speak). Reports left shoulder and neck pain likely musculoskeletal
arthritis vs muscle cramping.
Objective Data
-
Labs:
Laboratory Results
06/10/24
05:55
WBC 8.0
Hgb 9.6 L
Hct 29.6 L
Plt Count 287
Sodium 141
Potassium 4.0
Chloride 107
Carbon Dioxide 26
BUN 21 H
Creatinine 0.8
Glucose 84
Calcium 9.3
Vital Signs:
Vital Signs
Temp Pulse Resp BP Pulse Ox
99.4 F 131 19 134/98 94
06/10/24 06:58 06/10/24 06:49 06/10/24 06:48 06/10/24 06:49 06/09/24 20:44
I&O
06/09/24 06/10/24 06/11/24
06:59 06:59 06:59
Intake Total 320.6 / 341.7 229.2 / 229.2
Output Total 825 / 825 165 / 165
Balance -504.4 / -483.3 64.2 / 64.2
[2024-06-10] MEDS: MIRALAX TUBE (07:04)
[2024-06-10] MEDS: NSS (PRESERVATIVE FREE) 10 ML IV (07:50)
[2024-06-10] MEDS: PROTONIX IV 40 MG IV (07:50)
--- NOTE | 2024-06-10 08:37 | PTCARENOTE ---
ilened pt, handoff bedside at 0715, 1:1 continuing, safe environment maintained. Flat, tearful, responds when spoken to, slightly KLAMATH. Notes ongoing neck discomfort juliet on L side, noted tylenol dose earlier didn't help much, ice pack to area, denies
tingling/numbness to L arm. positioned as able for comfort. ordered breakfast but denies appetite. ambulated to bathroom, brushed teeth, voided without diff, brushed hair. Presently in recliner with breakfast tray. VS remain stable.
[2024-06-10] MEDS: LIORESAL 2.5 MG PO (09:49)
[2024-06-10] MEDS: ASACOL, DELZICOL DR 800 MG PO ×2 (11:14→21:02)
[2024-06-10] MEDS: TOPROL XL 12.5 MG PO (11:14)
--- NOTE | 2024-06-10 11:19 | W.PN.UPDATE ---
Update Note
Progress Note Update
patient seen chart reviewed. discussed w nursing. the patient is definitely better today but still depressed. she was much more able to engage in discussion w me and told me about the painful years of her marriage. it was actually her who
filed for divorce and she was served. that is NOT to say that she wanted necessarily to be in the marriage but she is clearly 'old fashioned ' on the subject of male female relationships . she perceives that she did everything in the home and was
never appreciated and he just drank and drank. she worries he will wear out his welcome at their d's and then what happens. she is also worried that he will 'take everything' from their marriage . i tried to reassure her that half of everything
gained in the life of the marriage is hers. i explained to her that she is now on a [address] shi tomorrow will have to make the decision re 303. [facility] is a possibility but she could go voluntarily too. she is denying at
this point she will harm self. i left the one to one as she is a 302 and nurse ishmael is checking whether that is a must. i do think she could be off one to one....if there is nothing preventing this in terms of 302...could use med sitter as well
we discussed meds. will hold off for now. re escitalopram patient said it helped 'if i took it....'
--- NOTE | 2024-06-10 11:42 | PTCARENOTE ---
seen by Dr. Moscoso, complete CHG cloths to skin, gown changed, remains pleasant in chair. Keeping 1:1 observation at this time after discussion and policy review. warm blanket to L shoulder, meds given as noted, VS stable. refusing lunch at this
time. Resting in recliner chair.
--- NOTE | 2024-06-10 14:46 | PTCARENOTE ---
back to bed, warm blanket to L neck/shoulder. pleasant and cooperative.
[2024-06-10] MEDS: LIORESAL 5 MG PO ×2 (15:13→21:03)
[2024-06-10] MEDS: LIDOCAINE 4% PATCH 1 PATCH TOPICAL (15:42)
--- NOTE | 2024-06-10 15:50 | PTCARENOTE ---
Dr. Merritt updated re: continuing shoulder /neck Left side discomfort, lessened with pain med and application of heat, imaging orders noted and taken to department for xrays. meds as noted, lido patch applied, resting in bed. daughter Paulette called,
updated, messages given and received with pt. They did not speak on the phone at this time. 1:1 observation continues.
--- NOTE | 2024-06-10 16:10 | CHAP ---
Visited with Juany at 1:30 for an extended period. She was calm and alert - shared her story. She hopes to find peace living on her own. Has good support from daughters. Emotional and spiritual support provided, with assurance that we are here
for her.
[2024-06-10] MEDS: BenGay-Like 1 APPLIC TOPICAL ×2 (17:52→21:03)
[2024-06-10] MEDS: LOVENOX 40 MG SC (17:52)
--- NOTE | 2024-06-10 18:23 | PTCARENOTE ---
slept briefly, presently OOB eating dinner. dana cabrera and judson jimenes as ordered, still notes discomfort at junction of neck and shoulder on L side.
--- NOTE | 2024-06-10 20:19 | PTCARENOTE ---
Assumed care of pt at 1900. Pt is A/O x4, pleasant and cooperative with care. Flat affect noted, but not as withdrawn or drowsy as previous night. Reports pain to neck and shoulder, PRN and scheduled meds available to tx pain and pt is aware and
agreeable to this throughout the night. SR 90s on monitor, spot checking SpO2, 95% on RA. Physical assessment completed, see nursing shift assessment flowsheet for full details. Pt is under 1:1 observation for S.I. Safe environment maintained.
[2024-06-10] MEDS: ULTRAM 50 MG PO (21:03)
[2024-06-11] VITALS (9 sets, daily range): BP systolic 94–154; BP diastolic 48–95; PULSE 94; O2SAT 96; BMI 37.0
[2024-06-11] MEDS: ULTRAM 50 MG PO ×3 (03:46→16:35)
[2024-06-11 03:51] LABS: Hematocrit 27.8 % (37.0-47.0); Mean Corp Hgb Conc. 32.4 g/dL (33.0-37.0); Mean Corpuscular Hgb 31.4 pg (27.0-31.0); Mean Corpuscular Volume 96.9 fL (81.0-99.0); Mean Platelet Volume 9.1 fL (7.4-10.4); Platelet Count 295 10^3/uL (130-400); Red Blood Cell Count 2.87 10^6/uL (4.20-5.40); Red Cell Dist. Width 12.8 % (11.5-14.5); White Blood Cell Count 5.8 10^3/uL (4.8-10.8)
[2024-06-11 04:15] LABS: Blood Urea Nitrogen 25 mg/dl (7-17); Calcium 9.1 mg/dl (8.4-10.2); Carbon Dioxide 26 mmol/L (22-30); Chloride 105 mmol/L (98-107); Estimated Creatinine Clearance 60 ml/min; Glucose 100 mg/dl (70-99); Magnesium 1.8 mg/dl (1.6-2.3); Phosphorus 3.7 mg/dl (2.5-4.5); Sodium 139 mmol/L (135-145); eGFR > 60.00
[2024-06-11] MEDS: TOPROL XL 12.5 MG PO (07:15)
[2024-06-11] MEDS: ASACOL, DELZICOL DR 800 MG PO (07:15)
[2024-06-11] MEDS: PROTONIX 40 MG PO (07:15)
[2024-06-11] MEDS: LIDOCAINE 4% PATCH 1 PATCH TOPICAL (07:15)
[2024-06-11] MEDS: MIRALAX TUBE (07:16)
[2024-06-11] MEDS: BenGay-Like 1 APPLIC TOPICAL ×3 (07:16→21:47)
[2024-06-11] MEDS: LIORESAL 5 MG PO ×3 (07:16→21:47)
--- NOTE | 2024-06-11 09:59 | W.PN.HOSP.TC ---
Addendum entered and electronically signed by Melinda Hauser MD 06/11/24 18:19:
73-year-old female with intentional overdose of benzo as she was going through divorce with her .
CVS: S1-S2 normal
Chest: CTA B/L
Abdomen: Soft, NT / Bowel sounds present
Extremities: No edema, normal pulses
# Intentional benzo overdose
Suicide attempt
Intubated in the ER for airway protection on 06/08/2024
Now extubated
On one-to-one- Continue
303 hearing tomorrow
She is not suicidal anymore
# Sinus tachycardia-BB started. Check TSH
# Anxiety and depression-was on lorazepam as outpatient and Lexapro 10 mg daily
# Ytzjxukvkuvf-Eujicwmbuf-urxninowaldvansvsji 25 mg/losartan 50 mg. On BB now. Restart Losartan
# Obesity per BMI
# Colitis-chronic diarrhea-type unclear-on mesalamine
# Anemia-check iron studies
# GERD/hiatal hernia-PPI
# Diverticulosis
# Multilevel lumbar DJD and spondylolisthesis L5 on S1
# DVT prophylaxis-Lovenox
# Full code
Discussed with case management and psyche
Original Note:
Today's Communication/Plan
-
Psychiatry reassessment for 303
Assessment / Plan
Assessment / Plan
IMPRESSION:
73 female history of GERD diverticulosis hypertension brought in by ambulance after intentional overdose home as needed prescribed Ativan. Patient intubated at time of evaluation all of history from records and from patient's daughter Paulette's
report. Patient going through a divorce with her , had reportedly called her brother to say goodbye prompting family to contact emergency services. Patient was subsequently found at home with empty bottle prescribed as needed Ativan.
Refusing medical services. Family 302 her and she was subsequently brought to the ED. ED evaluation was concerning for progressive lethargy altered mental status. Patient had essentially become up to and did nonresponsive to painful stimulus
exhibiting episodes of apnea prompting intubation for airway protection. Hypotensive sinus tachycardia. Toxicology was negative for Tylenol salicylate levels, positive for fentanyl (possibly given here for intubation) and benzo.
PLAN:
#Suicide attempt
-Intentional benzo overdose
-Likely secondary to Major Depression d/o
-Intubated for airway protection 06/08
-Admitted to ICU
-Patient was extubated to nasal cannula 06/09
-Patient denies any suicidal ideology this morning 06/11/2024
-Psych/court eval tomorrow for 303, due to timing of 302 over the weekend
-Tentatively planning to refer patient to inpatient psychiatric treatment when medically stable, psychiatry considering restarting Lexapro. Is following
-Subjectively patient states she does not want inpatient psychiatric treatment and wants to return home
-B12 and iron studies were ordered
-Patient stable enough to be downgraded to telemetry, currently with one-to-one sitter
#Hypertensive urgency
-Resolved
-Labetalol as needed
-Home losartan 25 mg p.o. daily was restarted
#Sinus tachycardia
-Lopressor as needed heart rate persistently greater than 120
-Low dose metoprolol 12.5 mg XL daily started with holding parameters
-Echo planned for today
-Denies hx drinking, no significant withdrawal symptoms noted
#Left side neck, Lt Shoulder pain arthritis/muscle stiffness
-Musculoskeletal pain
-Cervical and Lt Shoulder XR appreciated no acute pathology, chronic arthritic changes noted
-Tylenol changed to 1000 mg Q8
-Baclofen 5 mg TID w/ holding parameters
-Lidocaine patch increased to twice daily
-bengay-like cream
-Tramadol prn
-Pt reports previously being told by GI to avoid Ibuprofen for unspecified reasons
-PT/OT eval
DVT prophylaxis Lovenox
GI prophylaxis Protonix
Full code
Anticipated Discharge: 24 - 48 hours
Subjective/Interval History
-
Date of Service: June 11, 2024
No acute events overnight
Patient still with one-to-one sitter
Patient complains of left-sided shoulder pain, as well as neck pain
Objective Data
-
Labs:
Laboratory Results
06/11/24
03:42
WBC 5.8
Hgb 9.0 L
Hct 27.8 L
Plt Count 295
Sodium 139
Potassium 4.0
Chloride 105
Carbon Dioxide 26
BUN 25 H
Creatinine 0.8
Glucose 100 H
Calcium 9.1
Vital Signs:
Vital Signs
Temp Pulse Resp BP Pulse Ox
98.6 F 91 19 154/79 92
06/11/24 07:14 06/11/24 07:13 06/11/24 07:13 06/11/24 07:13 06/11/24 07:14
I&O
06/10/24 06/11/24 06/12/24
06:59 06:59 06:59
Intake Total 229.2 / 229.2 940 / 940
Output Total 165 / 165 150 / 150
Balance 64.2 / 64.2 790 / 790
Review of Systems
-
History Source: Patient
Constitutional: Reports No Symptoms
Respiratory: Reports No Symptoms
Cardiac: Reports No Symptoms
Abdomen/GI: Reports No Symptoms
Psych: Reports Depressed
Physical Exam
-
General: Well Developed, Well Nourished and Appears in Distress; Negative Respiratory Distress
Respiratory: Clear to Auscultation
Cardiac: Regular Rhythm and S1/S2
GI: Soft, Nontender, Nondistended and Normal Bowel Sounds
Skin: Warm and Dry
Neuro: Awake, Alert, Oriented and AO x 3
Psych: Depressed (Patient severely depressed); Negative Suicidal (Patient denies suicidal ideation today, currently has no plan to hurt herself)
Data Reviewed
-
Diagnostic Radiology: Report Reviewed by me and Discussed with Physician
Labs: Labs Reviewed by me and Discussed with Physician
--- NOTE | 2024-06-11 10:44 | W.PN.UPDATE ---
Update Note
Progress Note Update
Pt seen, chart and 302 reviewed. Pt admitted and intubated after intentional OD on Ativan. Pt reportedly called her brother to say goodbye. Pt states she was 'mad' after she was served with divorce papers by her of 50 years. Pt very
depressed/despondent, stating she wasted her life, bursting into tears, sobbing. Pt states she did everything in the house, and her just drank and acted like he was a guest. Pt feels acutely hurt/like she has been 'kicked in the ass.' Pt
reviewing her marriage, states she didn't want to , saw 'red flags' in her 's behavior, but he talked her into it. Pt has been prescribed Lexapro by PCP for approx 6 months, states it was her 's idea, has not been consistent
taking it. Pt c/o loss of appetite, expresses negative outlook, expects she will be alone, continues to appear very bitter about the situation with her .
Imp: Major Depressive d/o, post intentional OD which required intubation
Rec: Filing 303 petition, for MH Court tomorrow due to timing of the 302 over the weekend
Referral to inpatient psychiatric treatment when medically stable. Consider re-starting Lexapro.
will follow
--- NOTE | 2024-06-11 12:10 | CM ---
CM following re: discharge planning.
Reviewed pt's chart, met with pt. CM discussed pt's case in details with Psychiatrist.
Per psychiatrist, 302 was filed on Tuesday at 12:57 p.m. and 303 paperwork will be completed for Court Hearing for tomorrow.
CM met with pt. pt presents with depressed mood, depressed and tearful affect, direct oriented thought, deeply expressing her sorry feelings regarding her attempt to commit suicide. Pt stated she has been living with her for 50 years, has 3
children. 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 Pt was on and off expressing her negative feelings regarding her relationship with her who per the pt filled a petition for divorce. Pt stated she
felt 'enough is enough' and she took unaccountable amount of Lexapro peels. Pt stated her requested her to have psychotropic medications and PCP prescribed Lexapro 10 mg daily. Pt denied being suicidal, expressed her feelings to return back
home with her 3 birds. Pt stated her stays with a daughter. Pt stated she understands her actions regarding OD and she stated she will never ever do it again.
Pt denied to discuss going to inpatient psychiatric hospital for further treatment, went to tears stating: I do not want to be punished for my actions that was just my highly emotional moment'. Pt again was on and off regarding her negative marriage
and described herself as 'very nice person'.
303 paperwork completed and signed by . CM went over with the pt Bill of rights, pt expressed her understanding, signed.
CM call [facility] mental health court, spoke to a marketing development representative, a Court hearing for tomorrow initiated and necessary 303 hearing documentation sent to [email or web address].
Per [facility] health marketing development representative she will call me back this afternoon about Court hearing time.
LIGIA spoke to pt's daughter Paulette [phone] who brought to me her concerns regarding pt's mental health state and she is aware of Court hearing tomorrow and she stated that she and her sister will be here tomorrow to testify against their mother.
Dr. Pito Metcalf is a petitioner.
CM spoke to ICU nurse educator and she stated that [employer] is charged and will be available for Court hearing tomorrow.
D/C plan: Court hearing tomorrow and CM will follow up with the Mental health Court decision.
CM will follow to assist pt with discharge plan update as hospitalization progresses
[2024-06-11] MEDS: BenGay-Like TOPICAL (13:38)
[2024-06-11 17:10] LABS: TSH 2.07 uIU/ml (0.47-4.68)
[2024-06-11] MEDS: LIDOCAINE 4% PATCH TOPICAL (17:55)
[2024-06-11] MEDS: LOVENOX 40 MG SC (18:00)
[2024-06-11] MEDS: COZAAR PO (18:04)
--- NOTE | 2024-06-11 20:00 | PTCARENOTE ---
Addendum entered by Goldie Chávez RN 06/11/24 20:29:
warm blankets applied to left should for pain- No K PAd available
Original Note:
Rec'd pt sitting on chair, amb to bathroom w/ walker ad asaf, 1:1 suicide observation maintained- PCT at bedside, flat affect, cooperative, ST, bp stable, + pulses, RA, lungs decr in bases, sat 95, + bowel sounds, no bm, abd soft, no n/v, voids in
bathroom
[2024-06-11] MEDS: TYLENOL 1000 MG PO (23:18)
--- NOTE | 2024-06-11 23:57 | PTCARENOTE ---
resting in bed, no changes
[2024-06-12] VITALS (9 sets, daily range): BP systolic 126–149; BP diastolic 67–82; BMI 37.5
[2024-06-12 03:39] LABS: Hematocrit 28.2 % (37.0-47.0); Hemoglobin 9.1 g/dL (12.0-16.0); Mean Corp Hgb Conc. 32.3 g/dL (33.0-37.0); Mean Corpuscular Hgb 31.4 pg (27.0-31.0); Mean Corpuscular Volume 97.2 fL (81.0-99.0); Mean Platelet Volume 9.1 fL (7.4-10.4); Platelet Count 282 10^3/uL (130-400); Red Cell Dist. Width 12.7 % (11.5-14.5); White Blood Cell Count 6.5 10^3/uL (4.8-10.8)
[2024-06-12 04:02] LABS: Blood Urea Nitrogen 27 mg/dl (7-17); Calcium 9.4 mg/dl (8.4-10.2); Carbon Dioxide 24 mmol/L (22-30); Chloride 104 mmol/L (98-107); Estimated Creatinine Clearance 53 ml/min; Glucose 111 mg/dl (70-99); Iron 32 ug/dl (37-170); Magnesium 1.7 mg/dl (1.6-2.3); Phosphorus 3.8 mg/dl (2.5-4.5); Sodium 138 mmol/L (135-145); eGFR > 60.00
[2024-06-12 04:11] LABS: Percent Saturation 9 % (20-50); Total Iron Binding Capacity 328 ug/dl (265-497)
--- NOTE | 2024-06-12 04:34 | PTCARENOTE ---
pt has been talking all night to the PCT doing the 1:1, has not slept at all, very calm, cooperative
[2024-06-12 04:37] LABS: Ferritin 25.4 ng/ml (11.1-264.0)
[2024-06-12 04:51] LABS: Vitamin B12 > 1000 pg/ml (239-931)
[2024-06-12] MEDS: COZAAR 25 MG PO (08:39)
[2024-06-12] MEDS: PROTONIX 40 MG PO (08:39)
[2024-06-12] MEDS: BenGay-Like 1 APPLIC TOPICAL ×2 (08:39→16:51)
[2024-06-12] MEDS: LIORESAL 5 MG PO ×2 (08:39→15:37)
[2024-06-12] MEDS: MIRALAX TUBE (08:40)
[2024-06-12] MEDS: TYLENOL 1000 MG PO ×2 (08:40→15:36)
[2024-06-12] MEDS: TOPROL XL 12.5 MG PO (08:40)
[2024-06-12] MEDS: LIDOCAINE 4% PATCH 2 PATCH TOPICAL (08:47)
--- NOTE | 2024-06-12 09:43 | W.PN.HOSP.TC ---
Addendum entered and electronically signed by Melinda Hauser MD 06/12/24 16:13:
I personally performed a history and physical exam of the patient and discussed management with the resident. I reviewed the resident's note and agree with the documented findings and plan of care HPI/CC.
patient says neck pain manageable with lidoderm and also tylenol.She was on meloxoicam as OP with PPI.
Exam un remarkable. NO spine tenderness
X ray reviewed with her.
She doesn't want steroids
Iron def discussed. Pt hesitant to take supplemental iron due to bowel obstruction and constipation.
OP GI W/U discussed
303 hearing noted
Inpatient psyche placement at [facility].
start Lexapro 5 mg per psyche.
D/W Pharmacy
D/W RN
Total discharge time 38 min
Original Note:
Today's Communication/Plan
-
[address] evaluation today
Plan to follow court results
Assessment / Plan
Assessment / Plan
IMPRESSION:
73 female history of GERD diverticulosis hypertension brought in by ambulance after intentional overdose home as needed prescribed Ativan. Patient intubated at time of evaluation all of history from records and from patient's daughter Paulette's
report. Patient going through a divorce with her , had reportedly called her brother to say goodbye prompting family to contact emergency services. Patient was subsequently found at home with empty bottle prescribed as needed Ativan.
Refusing medical services. Family 302 her and she was subsequently brought to the ED. ED evaluation was concerning for progressive lethargy altered mental status. Patient had essentially become up to and did nonresponsive to painful stimulus
exhibiting episodes of apnea prompting intubation for airway protection. Hypotensive sinus tachycardia. Toxicology was negative for Tylenol salicylate levels, positive for fentanyl (possibly given here for intubation) and benzo.
PLAN:
#Suicide attempt
-Intentional benzo overdose
-Likely secondary to Major Depression d/o
-Intubated for airway protection 06/08
-Admitted to ICU
-Patient was extubated to nasal cannula 06/09
-Patient denies any suicidal ideology this morning 06/12/2024, as well as yesterday
-Psych/court eval today for 303, due to timing of 302 over the weekend
-Tentatively planning to refer patient to inpatient psychiatric treatment when medically stable, psychiatry considering restarting Lexapro. Is following
-Subjectively patient states she does not want inpatient psychiatric treatment and wants to return home
-B12 was very high, greater than 1000
-Patient stable enough to be downgraded to telemetry, currently with one-to-one sitter
#Hypertensive urgency
-Resolved
-Labetalol as needed
-Home losartan 25 mg p.o. daily was restarted
#Sinus tachycardia
-Lopressor as needed heart rate persistently greater than 120
-Low dose metoprolol 12.5 mg XL daily started with holding parameters
-Echo planned for today
-Denies hx drinking, no significant withdrawal symptoms noted
#Left side neck, Lt Shoulder pain arthritis/muscle stiffness
-Musculoskeletal pain
-Cervical and Lt Shoulder XR appreciated no acute pathology, chronic arthritic changes noted
-Tylenol changed to 1000 mg Q8
-Baclofen 5 mg TID w/ holding parameters
-Lidocaine patch increased to twice daily
-bengay-like cream
-Tramadol prn
-Pt reports previously being told by GI to avoid Ibuprofen for unspecified reasons
-PT/OT eval
-Patient states pain has not improved with multiple medication and non-narcotic therapies
-Conversation with patient regarding 50 mg p.o. prednisone to potentially help with her neck pain, patient refused
#Iron deficiency anemia
-Hemoglobin 9.1
-10 seems to be patient's baseline
-Iron studies were ordered on patient yesterday
-Serum iron 32, iron sat 9%, ferritin 25.4, TIBC 328
-Studies indicate patient is iron deficient
-Last bowel movement was yesterday
-Patient was offered IV iron 125 daily, patient refused
#Acute delirium
-Resolved
-Patient was delirious in the ED due to benzodiazepine overdose
DVT prophylaxis Lovenox
GI prophylaxis Protonix
Full code
Anticipated Discharge: > 48 hours
Subjective/Interval History
-
Date of Service: June 12, 2024
No acute events overnight, patient still with one-to-one sitter
Objective Data
-
Labs:
Laboratory Results
06/12/24
03:12
WBC 6.5
Hgb 9.1 L
Hct 28.2 L
Plt Count 282
Sodium 138
Potassium 4.0
Chloride 104
Carbon Dioxide 24
BUN 27 H
Creatinine 0.9
Glucose 111 H
Calcium 9.4
Vital Signs:
Vital Signs
Temp Pulse Resp BP Pulse Ox
98.9 F 91 13 141/78 95
06/12/24 07:40 06/12/24 08:40 06/12/24 08:35 06/12/24 08:40 06/11/24 20:00
I&O
06/11/24 06/12/24 06/13/24
06:59 06:59 06:59
Intake Total 940 / 940 630 / 630 120 / 120
Output Total 150 / 150
Balance 790 / 790 630 / 630 120 / 120
Review of Systems
-
History Source: Patient
Constitutional: Reports No Symptoms
Respiratory: Reports No Symptoms
Cardiac: Reports No Symptoms
Abdomen/GI: Reports No Symptoms
Genitourinary: Reports No Symptoms
Musculoskeletal: Reports Muscle Pain and Arthralgias
Neuro: Reports No Symptoms
Psych: Reports Depressed
Physical Exam
-
General: Well Developed, Well Nourished, No Apparent Distress and Comfortable
Respiratory: Clear to Auscultation
Cardiac: Regular Rhythm and S1/S2
GI: Soft, Nontender, Normal Bowel Sounds and Distended
Musculoskeletal: No Edema
Skin: Warm and Dry
Neuro: Awake, Alert, Oriented and AO x 3
Psych: Calm, Intact Judgement/Insight and Depressed (Patient's affect has improved since yesterday, no longer flat. Seems in better spirits)
Data Reviewed
-
Labs: Labs Reviewed by me and Discussed with Physician
--- NOTE | 2024-06-12 10:43 | PTCARENOTE ---
Addendum entered by Sherry Wright RN 06/12/24 12:38:
patient refusing ferric gluconate until she has assurance from MD that Dr Seo has been consulted. she refuses miralax but requests her mesalamine be resumed. this was relayed by [place] text to hospitalist and resident. support given. 1:1 d/c per
orders. chair alarm in place.
Original Note:
303 completed. orders received
--- NOTE | 2024-06-12 10:46 | PN.CDI ---
CDI
- -
CDI:
Physician Documentation Request
Admit Date: 06/08/24 14:20
Dear Doctor Patricio,
Patient admitted following suicide attempt,
ED Physician Documentation: 'She was awake and alert when paramedics first met with her. Here in the emergency room she has become obtunded and responds with movement to painful stimulus. The initial plan was for observation and supportive care.
However the patient was exhibiting periods of apnea. Given her symptoms have rapidly progressed my concern is that her mental status will worsen before it improves...we proceeded to intubation.
H&P: 'Patient had essentially become up to and did nonresponsive to painful stimulus exhibiting episodes of apnea prompting intubation for airway protection.'
Based on the above, could you clarify in the Progress Notes which, if any of the following, is the most likely etiology of the altered mental status:
Toxic Metabolic Encephalopathy
Acute Delirium - indicate known or suspected etiology such as postoperative, due to opioids or other drugs etc. Can also indicate unknown or mixed etiologies.
Acute or subacute confusional state due to ____ (specify known or suspected etiology)
Other
Unable to determine
Use of terms such as suspected, likely, concern for, or probable (associated with a specific diagnosis that is being evaluated, monitored, or treated as if it exists) are acceptable and can be coded in the inpatient setting, when documented at the
time of discharge.
Thank you,
Kristine Esquivel RN, BSN
CDI Specialist
Available via [employer] text
Please use your independent medical judgment in providing your response.
[2024-06-12] MEDS: LEXAPRO 5 MG PO (11:28)
--- NOTE | 2024-06-12 11:49 | CM ---
Addendum entered by Darius Duque 06/12/24 16:03:
CM spoke to pt's daughter Paulette and she is aware of pt's discharge to [facility].
Addendum entered by Darius Duque 06/12/24 15:49:
CM spoke to [facility] liaison Griffiths and he confirmed that pt is accepted for admission today. COVID 19 test result faxed to [facility].
[facility]
Accepting MD: Rajendra Stockton, [id number]
An auth for inpatient psych level of care obtained from [facility], spoke to case mgr Radha, pt approved for inpatient level of care at [facility] for 8 initial days from today 06/12/24 till 06/19/24, Auth: [id number].
UC to arrange transportation, BLS. Original 304, 302 papers must to go with ambulance team. Ambulance auth is: [id number]
[facility] nursing report: [phone]
Discharge instructions fax: [phone]
D/C plan: [facility] inpatient [facility].
Addendum entered by Darius Duque 06/12/24 14:04:
[facility] requested labs result and Covid 19 test.
Labs result faxed to [facility] for a review.
Covid 19 test requested.
Original Note:
CM following re: discharge planning.
Reviewed pt's chart, met with pt and spoke to 3 pt's daughters[address] hearing held today at 9:[address] finds that the pt is severely mentally disabled and in need of inpatient psychiatric treatment for a period not to exceed 20 days.
Pt egressed her very unhappy feelings regarding the Court decision, denied being suicidal and pt is aware she will be discharged to inpatient psychiatric hospital for further evaluation and treatment.
CM met with pt's daughters and they expressed their satisfactions with Court decision stating that they have been dealing with pt's mental instability for years. pt's daughters requested [facility] inpatient H.
CM received Certification by the Court for extended involuntary emergency treatment pursuant to 303.
A referral to [facility] made.
D/C plan: [facility] inpatient [facility] under 303 commitment.
CM will follow to assist pt with discharge to [facility].
--- NOTE | 2024-06-12 12:30 | W.PN.UPDATE ---
Update Note
Progress Note Update
Pt seen, 303 hearing held with [facility] [address]. Pt was committed for up to 20 days of inpatient treatment. Pt now trying to minimize her suicide attempt, although family came in and reported pt left a suicide note. Pt noted up
most of the night. She is eating better. Affect continues depressed/dysphoric. Pt states she overdosed as a reaction to receiving divorce papers from her in the mail last 06/07.
Imp: Major Depressive d/o, post benzo OD that required intubation in ED
Rec: inpatient psych placement on 303. Restart Lexapro at 5 mg daily, leaving option to switch agents or titrate back up
will continue to follow
[2024-06-12] MEDS: BenGay-Like TOPICAL (12:38)
[2024-06-12] MEDS: MIRALAX 17 GRAMS TUBE (13:19)
[2024-06-12] MEDS: ASACOL, DELZICOL DR 800 MG PO (13:19)
--- NOTE | 2024-06-12 13:22 | PTCARENOTE ---
patient agreeable to take miralax but is refisng ferric gluconate until she has a bowel movement
[2024-06-12 14:50] LABS: COVID-19 Antigen Negative (Negative)
--- NOTE | 2024-06-12 15:11 | W.DCSUMMARY ---
Discharge Summary
Discharge Data
Date of Admission: 06/08/24
Date of Discharge: 06/12/24
-
Pending Results: No
Hospital Course
Discharging Physician : Murtaza Curry
Disposition : Geriatric inpatient psychiatric rehab
Primary care physician : Nesha Mead
Principal Discharge diagnosis : Benzodiazepine overdose/suicide attempt
Chronic Discharge diagnosis : GERD, diverticulosis, hypertension
Hospital Course : 73-year-old female was brought in by ambulance after intentional overdose on home as needed Ativan. Patient became somnolent and delirious and was subsequently intubated. During her time in the ED was noticed she had a sinus
tachycardia. Patient was admitted to the ICU on a 302. Toxicology was negative for salicylates but positive for opioids (possibly given here for intubation) as well as benzodiazepines. The next day 06/09/2024 patient was extubated to nasal
cannula. Psychiatry was consulted to speak to the patient and it was determined that the patient's suicide attempt was a result of her being served divorce papers by her . During her time in the ICU she repeatedly mentioned that the suicide
attempt was a mistake and that she was just emotional. Her children testified against her in court that she had left a suicide note. Patient had a court hearing for 303 which was eventually upheld. Patient will be sent to [facility] for 20 days, involuntarily. During her time in the ICU it was found that she is deficient in iron, patient was offered IV iron however she refused. Patient will be referred to outpatient hematology oncology for iron deficiency anemia
management, as well as GI for colonoscopy. Patient also complained of neck pain which was treated with Tylenol, Bengay, lidocaine patches and heating pads.
Important imaging findings :
06/08/2024 chest x-ray, findings: No active cardiopulmonary disease.
The tip of the endotracheal tube is in satisfactory position 6 cm above the bruna
06/10/2024 cervical spine x-ray, findings:
Moderate to severe multilevel degenerative changes of the cervical spine without evidence for acute fracture.
06/10/2024 shoulder x-ray, findings:
Moderate degenerative changes of the left shoulder without evidence for acute fracture or dislocation.
Procedure findings :
06/11/2024 echocardiogram, conclusions:
1. Technically difficult study.
2. Grossly normal left ventricular systolic function without regional wall
motion abnormalities. Estimated left ventricular ejection fraction is 55 to
60% by visual assessment. Mild concentric left ventricular hypertrophy.
Normal diastolic function.
3. Normal right ventricular size and systolic function.
4. No significant valvular abnormalities.
5. No pericardial effusion.
Discharge Plan
-
Patient Disposition: Psych Facility
Discharge Diagnosis/Procedures: Suicide attempt/benzodiazepine overdose
Diet: No restrictions
Activity: No restrictions
Driving Restrictions: As prior to admission
Bathing Restrictions: None
Activity Restrictions/Additional Instructions:
losartan reduced to 25 mg. Ativan stopped.
Referrals:
Grace Dale MD [Active] - in two to four weeks (Iron deficiency anemia)
Nesha Mead CRNP [Family Provider] -
Latisha Seo DO [Active] - in two to four weeks
Prescriptions:
New
lidocaine 4 % Adhesive Patch,Medicated
2 patch topical DAILY Qty: 0 0RF
acetaminophen [Tylenol Extra Strength] 500 mg Tablet
1,000 mg PO Q8 Qty: 0 0RF
metoprolol succinate 25 mg Tablet Extended Release 24 Hr
12.5 mg PO DAILY Qty: 0 0RF
baclofen 5 mg Tablet
5 mg PO TID Qty: 0 0RF
losartan 25 mg Tablet
25 mg PO DAILY Qty: 0 0RF
Continued
hydrochlorothiazide 25 mg Tablet
25 mg PO DAILY
Hold Instructions: restart when BP>140/90
pantoprazole 40 mg Tablet,Delayed Release (Dr/Ec)
40 mg PO DAILY Qty: 30 0RF
mesalamine 400 mg capsule (with del rel tablets)
800 mg PO BID
Changed
meloxicam 15 mg Tablet
15 mg PO DAILY PRN (Reason: pain) Qty: 0 0RF
escitalopram oxalate 10 mg Tablet
5 mg PO DAILY Qty: 0 0RF
Discontinued
losartan 100 mg Tablet
50 mg PO DAILY
Hold Instructions: restart when BP>140/90
lorazepam 0.5 mg Tablet
0.5 mg PO Q8HPRN PRN (Reason: anxiety)
Patient Comments:
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
Discharge Orders:
Discharge Patient (As Directed); Ordered 06/12/24
Ordered By: Naun Curry
Discharge Date and Time
Print Language: SAMI
[2024-06-12] MEDS: LOVENOX SC (16:50)
--- NOTE | 2024-06-12 19:59 | PTCARENOTE ---
pt dc'd via Acute care amb to [facility]
== END 2024-06-12 20:16 | DRG 918 ==
LOC: ICU 14:20
PROVIDERS: Internal Medicine; Nurse Practitioner Family; ADMITTING PHYSICIAN Internal Medicine; ATTENDING PHYSICIAN Hospitalist; CONSULT PHYSICIAN Psychiatry & Neurology Psychiatry; EMERGENCY PHYSICIAN Emergency Medicine; FAMILY PHYSICIAN Nurse Practitioner Family
PROC: 0BH17EZ Insertion of Endotracheal Airway into Trachea, Via Natural or Artificial Opening (ICD-10-PCS; 2024-06-08)
PROC: 5A1935Z Respiratory Ventilation, Less than 24 Consecutive Hours (ICD-10-PCS; 2024-06-08)
DX: T42.4X2A Poisoning by benzodiazepines, intentional self-harm, initial encounter (principal); F33.2 Major depressive disorder, recurrent severe without psychotic features; F19.221 Other psychoactive substance dependence with intoxication delirium; I16.0 Hypertensive urgency; I10 Essential (primary) hypertension; D50.9 Iron deficiency anemia, unspecified; E66.9 Obesity, unspecified; Z68.38 Body mass index [BMI] 38.0-38.9, adult; R06.81 Apnea, not elsewhere classified; I95.9 Hypotension, unspecified; F42.3 Hoarding disorder; F41.9 Anxiety disorder, unspecified; K21.9 Gastro-esophageal reflux disease without esophagitis; K52.9 Noninfective gastroenteritis and colitis, unspecified; K44.9 Diaphragmatic hernia without obstruction or gangrene; K57.30 Diverticulosis of large intestine without perforation or abscess without bleeding; M54.2 Cervicalgia; M25.512 Pain in left shoulder; M19.012 Primary osteoarthritis, left shoulder; M79.18 Myalgia, other site; M51.36 Other intervertebral disc degeneration, lumbar region; M43.17 Spondylolisthesis, lumbosacral region; R00.0 Tachycardia, unspecified; Z63.5 Disruption of family by separation and divorce; Z79.899 Other long term (current) drug therapy; Z87.19 Personal history of other diseases of the digestive system; Z88.0 Allergy status to penicillin; Z88.8 Allergy status to other drugs, medicaments and biological substances
CPT/HCPCS: 31500; 36600; 43752; 71045; 72040; 73030; 80048; 80053; 80143; 80179; 80306; 80307; 82077; 82607; 82728; 82805; 82962; 83540; 83550; 83735; 84100; 84443; 84478; 85025; 85027; 85610; 85730; 87070; 87077; 87186; 87205; 87811; 93005; 93306; 94002; 94003; 96365; 96366; 96375; 97116; 97163; 97167; 99291; J2916

== ENCOUNTER 2024-07-26 19:15 | Inpatient (IN) | payer OTHER, SELFPAY ==
[2024-07-26] VITALS (13 sets, daily range): BP systolic 111–167; BP diastolic 65–104; BMI 35.1
--- NOTE | 2024-07-26 13:11 | ED.PDOC.TRB ---
ED Provider Triage
-
Patient seen by provider in Triage?: Seen in Triage
74-year-old female presents with worsening abdominal pain since yesterday. No vomiting. 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 She notes diffuse pain. Tender on exam. No fever or chest pain. Labs ordered. CT
with IV contrast pending given tenderness. Vital stable
[2024-07-26 14:43] LABS: % Basophils 0.3 % (0-2); % Eosinophils 0.5 % (0-6); % Immature Granulocytes 0.5 % (0-0.5); % Lymphocytes 10.1 % (20.5-51.1); % Monocytes 6.5 % (1.7-9.3); % Neutrophils 82.1 % (42.2-75.2); Absolute Lymphocytes 0.4 10^3/uL (1.2-3.4); Absolute Monocytes 0.3 10^3/uL (0.1-0.6); Absolute Neutrophils 3.3 10^3/uL (1.4-6.5); Hematocrit 31.4 % (37.0-47.0); Mean Corp Hgb Conc. 31.8 g/dL (33.0-37.0); Mean Corpuscular Hgb 29.8 pg (27.0-31.0); Mean Corpuscular Volume 93.5 fL (81.0-99.0); Mean Platelet Volume 8.7 fL (7.4-10.4); Nucleated Red Blood Cells % 0 %; Platelet Count 408 10^3/uL (130-400); Red Blood Cell Count 3.36 10^6/uL (4.20-5.40); Red Cell Dist. Width 14.4 % (11.5-14.5)
[2024-07-26] MEDS: ZOFRAN 4 MG IV (14:43)
[2024-07-26] MEDS: DILAUDID 0.5 MG IV ×3 (14:44→23:36)
--- NOTE | 2024-07-26 14:53 | ED.GENMED ---
History of Present Illness
General
Chief Complaint: Abdominal Symptoms
Source: patient
Exam Limitations: none
Time Seen by Provider: 07/26/24 13:29
Nursing documentation reviewed up to this point in time: agreed with
History of Present Illness
History of Present Illness:
74 y/o F
h/o htn
colitis
followed by GI
has had looser stools the past few days with abd piain that was mild
suspected her colitis; she called the GI doctor for possible abx, and they reqyueested labs and stool she dropped off today
pain abruptly worse and now distended, cannot get comfortable
no vomiting
no fever
did move bowels today
not bloody
no chest pain/sob
urinated today
Past History
Past History
ED Past Medical History: GERD, HTN, Psychiatric, Other (Diverticulitis) and Other (Iron deficiency anemia)
ED Past Surgical History: Gynecological, Orthopedic and Other
Social History
Tobacco: Non-smoker
Alcohol: None
Drug: None
Personal:
Living: with family
Employment: Not employed
Family History
Family History: Other (Noncontributory)
Phy Exam
Physical Exam
Physical Exam:
GENERAL: Alert , very uncomfortable
EYE: pupils equal and reactive
NECK: Supple
ENT: o/p clr, mmm.
CARDIAC: Tachycardic
LUNGS: Clear breath sounds bilaterally, no acute respiratory distress, no wheezes/rales/rhonchi
ABDOMEN: Distended, soft, hypoactive bowel sounds, moderately tender, seems to have more abdominal distention in the upper abdomen than lower, no rebound
NEUROLOGICAL: Alert and oriented, no focal neuro deficits
SKIN: Warm and dry, skin intact.
MUSCULOSKELETAL: No edema, well perfused.
PSYCH: Normal and appropriate interaction.
Course
Orders/Labs/Results
Orders:
Orders
07/26/24 13:11
CT Abd/pelvis W Iv Cont Urgent
Comment:
Reason For Exam: abdominal pain
07/26/24 14:25
Chest X-ray Portable [CR Chest Portable - 1 View] Stat
Comment:
Reason For Exam: SEVERE ABD PAIN, DISTENSION
Reason Study Needs to be Portable: Patient Unstable
07/26/24 14:27
Bladder Scan- Treatment ONCE
HYDROmorphone [Dilaudid] 0.5 mg IV NOW STA
Ondansetron Injectable [Zofran] 4 mg IV NOW STA
07/26/24 14:34
Complete Blood Count/With Diff Urgent
Comprehensive Metabolic Panel Urgent
Lactic Acid Urgent
Lipase Urgent
07/26/24 15:48
HYDROmorphone [Dilaudid] 0.5 mg .ROUTE .STK-MED ONE
HYDROmorphone [Dilaudid] 0.5 mg IV NOW STA
07/26/24 16:35
0.9% Sodium Chloride 500 ml [Nss] 500 ml IV BOLUS
Abnormal Lab Results
07/26/24
14:34
WBC 4.0 L 10^3/uL
(4.8-10.8)
RBC 3.36 L 10^6/uL
(4.20-5.40)
Hgb 10.0 L g/dL
(12.0-16.0)
Hct 31.4 L %
(37.0-47.0)
MCHC 31.8 L g/dL
(33.0-37.0)
Plt Count 408 H 10^3/uL
(130-400)
Absolute Lymphs (auto) 0.4 L 10^3/uL
(1.2-3.4)
Neutrophils % 82.1 H %
(42.2-75.2)
Lymphocytes % 10.1 L %
(20.5-51.1)
Potassium 3.4 L mmol/L
(3.5-5.1)
BUN 32 H mg/dl
(7-17)
Creatinine 1.1 H mg/dL
(0.6-1.0)
Glucose 162 H mg/dl
(70-99)
07/26/24 14:34
07/26/24 14:34
Vital Signs
Initial and Last Documented VS:
Initial Vital Signs
Temp Pulse Resp BP Pulse Ox
98 F 103 18 132/87 96
07/26/24 13:05 07/26/24 13:05 07/26/24 13:05 07/26/24 13:05 07/26/24 13:05
Last Documented Vital Signs
Temp Pulse Resp BP Pulse Ox
98 F 104 19 120/69 89
07/26/24 13:05 07/26/24 16:15 07/26/24 16:15 07/26/24 16:00 07/26/24 16:15
MDM/Problems Addressed
Differential Diagnosis Includes:
SBO, volvulus, internal hernia, constipation
MDM/Problems Addressed:
74 y/o F with h/o segmetnal colitis
has had pain for a few days, called dr. venegas office to see if they would give abx and she requested labs and stool first; pt says her pain abruptly got worse today; she came in in significant distress, she is very distended, tachy, afebrile,
uncomfortable;her lactic is normal
ct shows:Colonic distention with significant stool burden primarily affecting the distal transverse and descending segments of the colon with abrupt caliber change at the level of the sigmoid where there is a suspected stricture. There is likely
either partial small bowel obstruction, or significant delay in transit secondary to this stricture. No free air.
her pain was treated with dilaudid but just is returning requiring 2nd dose
i will admit her to the hospital; i do suspect she has at least a partial SBO;
i notified GI attending and colorectal attendings about her;
admitted to hospitalist
*Critical Care Note
Total Time (30-74mins, 75-104mins- exclusive of procedures): Not Applicable
ED Attending Note
-
Portions of this chart may have been created with voice recognition software.� Occasional wrong word or��sound alike� substitutions may have occurred due to the inherent limitations of voice recognition software.
Discharge Plan
Departure
Patient Disposition: Admit
Date of Disposition: 07/26/24
Time of Disposition: 16:08
Admit to: Med/Surg
Presentation/result/management discussed w/ accepting MD/DO: Hospitalist
Patient with high blood pressure during this ER visit?: No
Condition: Fair
Covid-19: Not Applicable
Discharge Problem:
Abdominal pain, Small bowel obstruction, Constipation
Prescriptions:
No Action
hydrochlorothiazide 25 mg Tablet
25 mg PO DAILY
pantoprazole 40 mg Tablet,Delayed Release (Dr/Ec)
40 mg PO DAILY Qty: 30 0RF
mesalamine 400 mg capsule (with del rel tablets)
800 mg PO TID
ascorbic acid (vitamin C) [Vitamin C] 500 mg Tablet
500 mg PO DAILY
albuterol sulfate 90 mcg/actuation Hfa Aerosol Inhaler
2 puff INHALATION R Q4HPRN PRN (Reason: sob)
losartan 100 mg Tablet
100 mg PO DAILY
vitamin E 268 mg (400 unit) Capsule
268 mg PO DAILY
magnesium oxide 250 mg magnesium Tablet
250 mg PO DAILY
escitalopram oxalate 20 mg Tablet
20 mg PO DAILY
Centrum Silver Women 8 mg iron-400 mcg-50 mcg Tablet
1 tab PO DAILY
meloxicam 15 mg tablet
15 mg PO DAILY
Referrals:
Debo Jimenez MD [Family Provider] -
Interventions
Interventions:
*Risk Screen - Suicide Last Done: 07/26/24 15:25
*General Assessment Last Done: 07/26/24 15:25
*Neglect/Abuse Screening Last Done: 07/26/24 15:25
ED- Fall Risk Assessment Last Done: 07/26/24 15:25
*ED COVID-19 Vaccine History Last Done: 07/26/24 15:25
WP-Vpkzve-Bmdirndwzh Assessment Last Done: 07/26/24 15:25
Discharge Date and Time
Print Language: ICELANDIC
[2024-07-26 15:02] LABS: ALT (SGPT) 10 U/L (0-35); AST (SGOT) 20 U/L (14-36); Albumin 3.5 g/dl (3.5-5.0); Alkaline Phosphatase 93 U/L (38-126); Blood Urea Nitrogen 32 mg/dl (7-17); Calcium 9.2 mg/dl (8.4-10.2); Carbon Dioxide 24 mmol/L (22-30); Chloride 106 mmol/L (98-107); Estimated Creatinine Clearance 43 ml/min; Glucose 162 mg/dl (70-99); Lipase 49 U/L (23-300); Potassium 3.4 mmol/L (3.5-5.1); Sodium 142 mmol/L (135-145); Total Bilirubin 0.7 mg/dl (0.2-1.3); Total Protein 6.5 g/dl (6.3-8.2)
--- NOTE | 2024-07-26 15:45 | EDRN ---
Dr. Trinidad in to see pt.
--- NOTE | 2024-07-26 16:35 | EDRN ---
Pt was just repositioned and placed on oxygen at 2lpm via NC for POX 88% at this time.
[2024-07-26] MEDS: NSS 500 IV (16:45)
--- NOTE | 2024-07-26 16:53 | HPS.HSE ---
Family Physician
-
Family Physician: Debo Jimenez
Chief Complaint
-
Severe abdominal pain
History of Present Illness
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
stiffness, history of suicide attempt (back in May 2024) and Major Depressive Disorder and Acute Delirium, presented with severe abdominal pain. Patient's was present in the room and mentioned that her pain started about a week prior but
today it had gotten really worse, much worse than her past bouts of colitis. She denied any fever, she has been having some bowel movements, but more likely overflow stool as imaging in the ER showed significant amount of stool in the colon.
Medical History
Past Medical History
Past Medical History: Reports Other (As per HPI above)
Past Surgical History: Reports Gynocological and Orthopedic
Social History
Tobacco: Non-smoker
Alcohol: None
Drug: None
Family History
Family History: Not pertinent
Allergies / Home Medications
Allergies reflects when Allergies were last updated in [email or web address].
Home Medications with original date entered in [email or web address]
Allergy/Medication List:
Allergies
Allergy/AdvReac Type Severity Reaction Status Date / Time
metronidazole [From Flagyl] Allergy IV- Verified 07/26/24 13:[address]
swelling
Penicillins Allergy Rash Verified 07/26/24 13:05
Home Medications
hydrochlorothiazide 25 mg tablet 25 mg PO DAILY Blood Pressure 05/16/23
pantoprazole 40 mg tablet,delayed release 40 mg PO DAILY #30 tabs 05/27/23
mesalamine 400 mg capsule (with delayed release tablets inside) 800 mg PO TID Gastrointestinal Issue 06/08/24
albuterol sulfate 90 mcg/actuation aerosol inhaler 2 puff inhalation R Q4HPRN PRN sob 07/26/24
ascorbic acid (vitamin C) 500 mg tablet (Vitamin C) 500 mg PO DAILY 07/26/24
escitalopram oxalate 20 mg tablet 20 mg PO DAILY 07/26/24
losartan 100 mg tablet 100 mg PO DAILY 07/26/24
magnesium oxide 250 mg PO DAILY 07/26/24
meloxicam 15 mg tablet 15 mg PO DAILY pain 07/26/24
bnwgplks-asxi-mpfb 8 mg-folic 400 mcg-K 50 mcg-lutein 300 mcg tablet (Centrum Silver Women) 1 tab PO DAILY 07/26/24
vitamin E 268 mg (400 unit) capsule 268 mg PO DAILY 07/26/24
Review of Systems
-
A 12 point ROS was completed and negative except as noted: Yes
Physical Exam
Vital Signs
Vital Signs
Temp Pulse Resp BP Pulse Ox
98 F 104 19 120/69 89
07/26/24 13:05 07/26/24 16:15 07/26/24 16:15 07/26/24 16:00 07/26/24 16:15
Physical Exam
General: Appears in Distress and Pain
HEENT: NormoCephalic and Moist mucous membranes
Respiratory: Clear
Cardiac: S1/S2 and Tachycardia
GI: Soft, Tender and Distended
Musculoskeletal: No Cyanosis, Edema, Right Upper Extremity and Edema, Left Lower Extremity
Skin: Warm and Dry
Neuro: Awake, Alert, AO x 3 and Nonfocal/grossly intact
Psych: Intact Judgment/Insight
Laboratory Results
-
07/26/24 14:34
07/26/24 14:34
Laboratory Results
Lactic Acid 1.0 mmol/L (0.7-2.0) 07/26/24 14:34
Total Bilirubin 0.7 mg/dl (0.2-1.3) 07/26/24 14:34
AST 20 U/L (14-36) 07/26/24 14:34
ALT 10 U/L (0-35) 07/26/24 14:34
Alkaline Phosphatase 93 U/L (38-126) 07/26/24 14:34
Lipase 49 U/L (23-300) 07/26/24 14:34
Impression/Plan
-
Assessment/Plan
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
#History of segmental colitis and diverticulitis (followed by GI and CRS outpatient)
#Tachycardia -- likely from above and pain
-Admit to IMU
-IV fluids
-Colorectal surgery plans to take patient to the OR this evening
-Strict NPO
-Bowel rest
-Pain control with prn IV Dilaudid
#Recent Suicide attempt
#Recent Benzodiazepene overdose
#Major Depressive Disorder
-Was hospitalized and intubated in the ICU in May 2024
-Was an intentional benzo overdose, likely secondary to Major Depression d/o
-Intubated for airway protection 06/08
-Patient was discharge to a mental health facility at that time
#Hypertension
#Hypertensive urgency
-Continue to monitor blood pressure
#Sinus tachycardia
-Likely secondary to colonic distension, bowel stricture and large amounts of stool present
#History of left side neck, Lt Shoulder pain arthritis/muscle stiffness
#Iron deficiency anemia
-Continue to monitor Hgb
#GERD
#Diverticulitis
#History of Acute delirium
DVT prophylaxis SCDs. Lovenox can be started per colorectal surgeon's timing of when it should start
Full code
Bowel distension, and stricture with large amount of stool needing surgery is a high-risk encounter.
--- NOTE | 2024-07-26 17:18 | EDRN ---
Pt's HR is increased into 130's from a only sl tachycardic rate. Pt's pain is now again increasing and is presently at 5/10, IVF of NSS were hung at wide open rate. Will attempt to contact hospitalist.
--- NOTE | 2024-07-26 17:28 | EDRN ---
Pt's pain is increasing at this time and HR is 130. Jeanette Villasenor has signed off. I TT'd Dr. Trinidad who Dr. Gunn says will be this pt's admitting hospitalist that HR increased to 130's, pain increasing and pt getting 1L of NSS.
--- NOTE | 2024-07-26 17:30 | EDRN ---
Dr. Pito kidd was informed of HR 130's, Pain increasing and IV bolus. He is in room w /pt at this time. Dr. Trinidad TT'd back that he will be down soon.
--- NOTE | 2024-07-26 18:08 | EDRN ---
Dr. Trinidad in room w/pt now that Dr. Pito kidd has finished his visit w/ pt.
--- NOTE | 2024-07-26 18:23 | EDRN ---
Pt ambulated to BR at this time to void. Pt going to OR tonight.
--- NOTE | 2024-07-26 18:53 | EDRN ---
REport called to Rasta CHAU in OR at this time. Pt to OR for colon resection and possible colostomy. Dr. Sheldon in room doing consent for surgery.
--- NOTE | 2024-07-26 18:54 | EDRN ---
Dr. Sheldon will take consent to OR at this time.
--- NOTE | 2024-07-26 19:00 | EDRN ---
Pt left ED for OR at this time w/ LR and KCl on stretcher.
--- NOTE | 2024-07-26 19:09 | CON.CRS ---
Medical History
-
History of Present Illness:
Patient is a 74-year-old female with PMH of GERD, HTN, RANJIT, OA, recurrent diverticulitis (admitted at [facility] in April 2023 for colitis, possible diverticulitis versus ischemic colitis; underwent a colonoscopy July [address] Seo showing
significant stenosis from 18 to 30 cm concerning more for SCAD versus diverticular stricture) who presents today for 1 to 2 weeks of worsening abdominal pain and bloating. She has been in touch with Dr. Seo who sent stool studies as an outpatient.
However, this morning, her pain became severe and she presented to the ED. She denies any nausea or vomiting, chest pain, shortness of breath. Her last BM was this morning, which she described as loose and small in size, nonbloody. She has not
been passing any gas today.
In the ED her WBC was 4.0, Cr 1.1, afebrile, HR in the 100s to 130s. A CT scan showed a large bowel obstruction from a sigmoid stricture, less likely a mass or inflammation. Her transverse colon is dilated up to 8 cm, her cecum is not dilated.
Past Medical History
Past Medical History: Other (As above)
Past Surgical History: Other (UHR x 2, last repair in 2001, she believes with mesh)
Social History
Tobacco: Non-Smoker
Alcohol: Occasional
Drug: None
Personal:
Living: With Family
Family History
Family History: Other (Mom with colon cancer diagnosed in her 80s)
Allergies / Home Medications
Allergy/AdvReac Type Severity Reaction Status Date / Time
metronidazole [From Flagyl] Allergy IV- Verified 07/26/24 13:[address]
swelling
Penicillins Allergy Rash Verified 07/26/24 13:05
�Medication �Instructions �Recorded �Confirmed �Type
hydrochlorothiazide 25 mg tablet 25 mg PO DAILY Blood Pressure 05/16/23 07/26/24 History
pantoprazole 40 mg tablet,delayed 40 mg PO DAILY #30 tabs 05/27/23 07/26/24 Rx
release
mesalamine 400 mg capsule (with 800 mg PO TID Gastrointestinal 06/08/24 07/26/24 History
delayed release tablets inside) Issue
albuterol sulfate 90 mcg/actuation 2 puff inhalation R Q4HPRN PRN sob 07/26/24 07/26/24 History
aerosol inhaler
ascorbic acid (vitamin C) 500 mg 500 mg PO DAILY 07/26/24 07/26/24 History
tablet (Vitamin C)
escitalopram oxalate 20 mg tablet 20 mg PO DAILY 07/26/24 07/26/24 History
losartan 100 mg tablet 100 mg PO DAILY 07/26/24 07/26/24 History
magnesium oxide 250 mg PO DAILY 07/26/24 07/26/24 History
meloxicam 15 mg tablet 15 mg PO DAILY pain 07/26/24 07/26/24 History
xlsfmzxa-jvpp-ktas 8 mg-folic 400 1 tab PO DAILY 07/26/24 07/26/24 History
mcg-K 50 mcg-lutein 300 mcg tablet
(Centrum Silver Women)
vitamin E 268 mg (400 unit) capsule 268 mg PO DAILY 07/26/24 07/26/24 History
Review of Systems
-
A 10 point review of systems was completed, and was negative except as per HPI.
Physical Exam
Vital Signs
Temp 98 F 07/26/24 13:05
Pulse 105 07/26/24 18:45
Resp Rate 16 07/26/24 18:45
Blood pressure 111/72 07/26/24 18:42
SaO2 97 07/26/24 18:45
07/25/24 07/26/24 07/27/24
06:59 06:59 06:59
Actual Weight 84.1 kg
Body Mass Index (BMI) 35.1
Lab Results / Allergies
07/26/24 14:34
07/26/24 14:34
WBC 4.0 10^3/uL (4.8-10.8) L 07/26/24 14:34
Hgb 10.0 g/dL (12.0-16.0) L 07/26/24 14:34
Hct 31.4 % (37.0-47.0) L 07/26/24 14:34
Plt Count 408 10^3/uL (130-400) H 07/26/24 14:34
Abs Immat Gran (auto) 0.0 10^3/uL (0-0.05) 07/26/24 14:34
Neutrophils % 82.1 % (42.2-75.2) H 07/26/24 14:34
Allergy/AdvReac Type Severity Reaction Status Date / Time
metronidazole [From Flagyl] Allergy IV- Verified 07/26/24 13:[address]
swelling
Penicillins Allergy Rash Verified 07/26/24 13:05
Physical Exam
General: Well Developed, Well Nourished and Other (Mild distress due to abdominal pain)
HEENT: Normocephalic and Atraumatic
Respiratory: Non Labored Respirations
GI: Soft, Tender (Significantly tender in the left hemiabdomen, no rebound or guarding) and Distended (Moderately to severely distended)
Skin: Warm and Dry
Neuro: AO x 3
Data Reviewed
-
Radiology: Image Personally Visualized and interpreted, Report Reviewed by me, Discussed with Patient and Discussed with Family
CT Scan: Image Personally Visualized and interpreted, Discussed with Physician (With radiology), Discussed with Patient and Discussed with Family
Labs: Labs Reviewed by me, Discussed with Patient and Discussed with Family
Assessment / Plan
-
74-year-old female with PMH of GERD, HTN, RANJIT, OA, recurrent diverticulitis (admitted at [facility] in April 2023 for colitis, possible diverticulitis versus ischemic colitis; underwent a colonoscopy July [address] Walp showing significant
stenosis from 18 to 30 cm concerning more for SCAD versus diverticular stricture) who presents today for 1 to 2 weeks of worsening abdominal pain and bloating. In the ED her WBC was 4.0, Cr 1.1, afebrile, HR in the 100s to 130s. A CT scan showed a
large bowel obstruction from a sigmoid stricture, less likely a mass or inflammation. Her transverse colon is dilated up to 8 cm, her cecum is not dilated.
�Large bowel obstruction due to most likely diverticular stricture
�Due to significant dilation of the transverse colon, tachycardia, significant pain on abdominal exam, I am concerned about threatened bowel due to the large bowel obstruction; after lengthy discussion with patient, patient's spouse and patient's
daughter, I recommended moving forward with exploratory laparotomy to evaluate the viability of the bowel and consider possible resection of the sigmoid colon and any unhealthy bowel; I explained that these situations most commonly require an
ostomy; if a subtotal colectomy is required, a reasonable option would be an ileorectal anastomosis, but I explained the risks involved with ileorectal anastomosis, including, but not limited to, significantly worse bowel function; I explained the
risks of waiting, including, but not limited to, bowel perforation, worsening clinical status, sepsis; after the above discussion, the patient and patient's family agreed to move forward with surgery
� Continue n.p.o. with IVF
� Continue pain control with Dilaudid as needed
� Will give preop dose of subQ heparin
� Will give preincision dose of IV ertapenem
� Discussed with radiology and hospitalist
[2024-07-26] MEDS: LR 1000 IV (23:26)
--- NOTE | 2024-07-26 23:40 | W.IMMPOSTOP ---
Surgical Immed Post Op Note
-
Primary Surgeon: Tony Sheldon MD
Assisting Surgeon: Mike [place] MD
Pre-op Diagnosis: large bowel obstruction
Post-op Diagnosis: large bowel obstruction, sigmoid colon perforation
Procedure Performed: exlap, sigmoidectomy, take-down of splenic flexure, partial omentectomy, TAP block, creation of end-colostomy
Anesthesia Type: general
Specimen / Cultures: peritoneal cultures; sigmoid colon, partial omentum
Estimated Blood Loss: 100mL
Complications: none
Operative Findings: Performed midline laparotomy, encountered previous umbilical hernia mesh that was incorporated into the fascia and cut through this; encountered omental adhesions to the mesh and anterior abdominal wall which were taken down
with blunt dissection and the Datavolution impact device; encountered murky ascites which was suctioned; the abdomen was explored and the transverse colon was severely dilated but without evidence of ischemia or perforation; the entire colon was quite
mobile; a punctate perforation was discovered at the mid sigmoid and ascites from the LLQ was sent for cultures; the sigmoid colon appeared distended and pale, but not frankly ischemic; the distal sigmoid was palpated and the sigmoid stricture was
felt; the stricture did not feel hard like a tumor; the proximal colon was significantly dilated from the mid sigmoid up to the mid transverse colon and then became tapered and normal caliber by the hepatic flexure and down to the cecum; the cecum
appeared healthy; the colon was decompressed by making a small colotomy in the distal transverse colon and a significant amount of air and some stool was suctioned; the colotomy was closed with a 2-0 Vicryl pursestring and stapled using a TA 60 with
a blue load the sigmoid descending and splenic flexure were mobilized from a lateral to medial approach by taking down the white line of Toldt and using a combination of blunt and sharp dissection to mobilize from the retroperitoneum; her planes
were very difficult to identify due to the edema in the mesentery and the retroperitoneum; after the splenic flexure was mobilized, attention was turned to the pelvis; the distal sigmoid was curled on itself and densely adherent to the left pelvic
sidewall; these adhesions were taken down with great difficulty; the ureter and left iliac vessels were identified and kept safe; using a combination of finger fracture and electrocautery, the adhesions to the left pelvis, and left uterus were taken
down successfully without injury to adjacent structures; the colon was transected proximally at the junction of the descending and sigmoid colon using 2 fires of the TARYN stapler with a purple load due to the diameter of the lumen; the remainder of
the sigmoid and rectosigmoid were mobilized from the left pelvic sidewall; the mesentery was serially divided with the Voyant impact device, staying close to the colon and keeping the ureter safe; this was taken to the mesenteric border of the
rectosigmoid junction; the rectosigmoid and proximal rectum were palpated and were in normal diameter and healthy; the colon was divided distally just proximal to the rectosigmoid junction; the specimen was passed off; the abdomen was washed out
with 5 L of warm saline; due to the massive distention of the descending and distal transverse colon, a corner of the staple line from the proximal transection point was opened and stool from the proximal colon was milked forward into a basin; the
burden of stool was significantly improved after this with improved domain of the abdomen; the staple line was reclosed using a TARYN 80; a colostomy site and the left upper quadrant was selected and cored out using electrocautery, splitting the
rectus muscle; the operative site was evaluated and hemostasis was achieved; a 3-0 Prolene was used to tag the right aspect of the rectal stump staple line; the right aspect of the omentum appeared tattered and this was divided using the Voyant
impact device and passed off for specimen; 30 mL of local was injected to perform a tap block; fascia was closed and Seprafilm was placed; skin was closed with intermittent patrice and Telfa andres; the colostomy was matured in a semi-Brooked fashion
--- NOTE | 2024-07-26 23:42 | OR.RPT ---
Operative Report
Operative Report
DATE OF OPERATION: 07/26/2024
SURGEON: Tony Sheldon MD
PREOPERATIVE DIAGNOSIS: Large bowel obstruction
POSTOPERATIVE DIAGNOSIS: Large bowel obstruction, sigmoid colon perforation
OPERATION: Exploratory laparotomy, sigmoidectomy, takedown of splenic flexure, abdominal washout, partial omentectomy, TAP block, creation of end colostomy
ASSISTANTS:
1. Mike [facility] MD
ANESTHESIA: General
ESTIMATED BLOOD LOSS: 100 mL
FINDINGS:
1. Encountered multiple omental adhesions to the prior umbilical hernia mesh and anterior abdominal wall; encountered murky ascites that was sent for cultures
2. The entire colon was quite mobile from its lateral attachments; the descending and transverse colon were significantly distended but healthy; the distention tapered at the mid-transverse colon and became normal in caliber at the hepatic flexure
down to the cecum, which was also healthy
3. The sigmoid appeared distended and pale, but not ischemic, with a palpable stricture felt towards the mid to distal aspect; the stricture did not feel hard like a malignancy; there was a punctate perforation noted in the mid sigmoid colon
4. Performed a sigmoidectomy with creation of end colostomy
SPECIMENS:
1. Peritoneal cultures
2. Sigmoid colon
3. Partial omentum
DRAINS: None
COMPLICATIONS: No immediate complications.
INDICATIONS: The patient is a 74-year-old female who presented to the [facility] ED after 1 to 2 weeks of worsening abdominal pain and bloating. A CT scan showed a large bowel obstruction from a likely sigmoid stricture, which was felt to be less
likely due to a mass or inflammation. She had a prior episode of colitis in April 2023 which was felt to be either related to diverticulitis versus ischemic colitis. She had undergone a colonoscopy in July 2023, which showed a significant
stenosis from 18 to 30 cm and appearance was consistent with SCAD versus diverticular stricture. She was lost to follow-up. On this admission, she was noted to be significantly tender and tachycardic up to the 130s, concerning for threatened bowel.
Therefore, surgery was recommended. The operation was discussed with the patient in detail, including risks and benefits. My plan is to explore the abdomen, attempt to remove the strictured segment of colon and remove any unhealthy appearing
bowel. I will then assess if a primary anastomosis is reasonable or if an ostomy would be safer. I anticipate needing to create an ostomy to reduce the risk of post-operative complications. Risks described included, but are not limited to,
bleeding, infection, anastomotic leak (if anastomosis created), rectal stump dehiscence, ureteral injury, bowel or solid organ injury, recurrence of diverticulitis, risks associated with a stoma if created (ie- skin irritation, ischemia, retraction,
prolapse and parastomal hernia) and anesthetic risks. The patient, patient's and patient's daughter understood and agreed to proceed.
PROCEDURE IN DETAIL: Pre-operatively, the patient was marked by our enterostomal nurses. The patient was taken to the operating room and placed on the operating table in supine position. Sequential compression devices were placed bilaterally.
General anesthesia was then induced and the patient was intubated without complication. The patient was placed in lithotomy position with both arms extended and secured to the armboards. A zambrano catheter was placed with sterile technique. The
abdomen was prepped and draped in a sterile fashion. A time-out was performed verifying the correct patient, procedure, operative site, positioning, and special equipment. Anesthesia placed an orogastric tube. Preoperative antibiotics were given.
A marking pen was used to yovani out the midline.
Using a 15 blade scalpel, a midline incision was made from 4 cm above the umbilicus and extended caudally to 2 cm above the pubic symphysis. This was taken down to the level of the fascia with Bovie electrocautery and hemostasis was assured. The
linea alba was divided carefully with Bovie electrocautery. Then 2 Kellys were used to grasp and elevate the peritoneum, which was sharply divided with Metzenbaum scissors, ensuring no peritoneal organs were in the vicinity. The patient had a
prior umbilical hernia repair with mesh. The mesh was well incorporated into the fascia and divided with electrocautery. There were multiple omental adhesions to the mesh and midline anterior abdominal wall. Rachel's were placed on the fascia to
visualize the adhesions and these were taken down with sharp dissection with Metzenbaum scissors, blunt dissection and the [employer] impact device. Once the omental adhesions were clear, I extended the fascial incision to the length of the skin
incision, taking care to avoid injury to the bladder, and I explored the abdomen. I encountered murky, but clear, ascites, which was suctioned. The proximal sigmoid, descending and transverse colon were significantly dilated, but without concerns
for ischemia. I also noted that the colon was quite mobile, with minimal lateral attachments, making it easy to evaluate the entire length of the colon without mobilization. The dilation began to taper at the mid transverse colon and was normal in
caliber by the proximal transverse colon. The proximal transverse colon, hepatic flexure, ascending colon and cecum were healthy and had no signs of ischemia. The distal sigmoid was palpated and a thick but spongy density was noted at the mid to
distal sigmoid, likely the source of the stricture. It was not hard like a malignancy. I also noted a punctate perforation at the mid sigmoid, on the medial side of the lumen. Upon noticing this, I swabbed the ascites from the left lower quadrant
for anaerobic and aerobic cultures. The surrounding colon did not appear ischemic or necrotic. At this point, it was clear that the patient would need a sigmoidectomy. Due to the perforation as well as the large difference in caliber between the
rectum and the descending colon, I felt the most appropriate option for reconstruction would be to create an end-colostomy with reversal in the future after full recovery. I extended the incision a few centimeters superiorly and placed an
extra-large Kapil wound protector. In order to improve visualization of the abdomen, I created a colotomy in the mid transverse colon. I first placed a 3-0 Vicryl pursestring at the antimesenteric border of the mid transverse colon and created a
colotomy with Bovie electrocautery. A significant amount of gas was released from the colon. I suctioned out 100 to 200 mL of liquid stool, then the stool became a thick liquid that was too difficult to suction. I tied down the pursestring
suture. I elevated the tails and then stapled the colotomy closed using a blue load on the TA 60 stapler. The staple line was hemostatic. After this maneuver, the colon was significantly smaller and easier to manipulate.
The patient was placed in Trendelenburg position with the left side tilted up. The small bowel was swept out of the pelvis. I began mobilizing the sigmoid by dividing the lateral attachments to the pelvic brim, left lower quadrant and continued
this dissection up the descending colon by dividing the white line of Toldt. I retracted the descending colon medially and mobilized the mesentery off of the retroperitoneum, taking care to protect Gerota's fascia. Her planes were very difficult
to identify due to the significant amount of edema within the mesentery and retroperitoneum. I continued my dissection up to the splenic flexure. There were no attachments from the colon to the spleen. I only had to take down the attachments from
the splenic flexure to the retroperitoneum, after which it was fully mobilized. I turned my attention to the pelvis. The sigmoid was densely adherent to the left pelvic sidewall and curled on itself. These adhesions were taken down with great
difficulty due to the density and chronicity of the inflammation. From my prior mobilization, I was able to identify the left ureter to guide my lateral dissection of the mid to distal sigmoid and prevent injury to the left ureter. The sigmoid was
also densely adherent to the left uterus. Using a combination of meticulous blunt dissection and electrocautery, the sigmoid was freed from the uterus and the left pelvic sidewall. I was able to identify the left iliac vessels, which were safe
during the mobilization. I selected a my proximal transection point at the junction between the sigmoid and descending colon, which was healthy, but dilated. I created a hole in the mesentery at the mesenteric border using electrocautery. I divided
the colon with two purples loads of the TARYN 80 stapler. I serially divided the mesentery with the Voyant ligasure device, staying close to the colon and ensuring the left ureter and iliac vessels were kept safe. Once the sigmoid was retracted out of
the pelvis, I identified a point on the proximal rectum which appeared healthy, just distal to the rectosigmoid junction. I scored the mesentery at this point and created a hole in the mesenteric border. I stapled and divided using a contour
stapler with a green load. The specimen was passed off for pathology.
The abdomen was irrigated with 5 L of warm saline and suctioned. The staple lines and divided mesentery were evaluated and hemostasis was assured. To improve the mobilization of the remaining proximal colon and to decrease the distention for better
fascial closure, I created a colotomy at the corner of my proximal staple line and I milked forward the stool within the proximal colon, from the cecum, around the hepatic flexure, down the transverse colon and splenic flexure and directed the flow
of stool into a large basin. I estimated about 1.5 L of stool was evacuated with this maneuver. There was negligible contamination of the operative field during the maneuver. The corner of the staple line was then closed with another fire of the
TARYN 80 with a purple load. This significantly improved to the abdominal domain for our fascial closure. I tagged the rectum at the right corner of the staple line with a 2-0 Prolene, leaving 3 cm long tails. The rectal stump and staple line
appeared healthy. The descending colon was nicely mobilized and reached the left lower quadrant ostomy-marking without any tension. Using an Allis, I elevated the skin and created a circular incision with electrocautery. I coned out a small
amount of subcutaneous tissue. Then, using [employer] [place]'s and electrocautery, I took this down through the anterior and posterior layers of the fascia, making a cruciate incision in each and splitting the rectus muscle with a Liz clamp. I ensured
the colostomy tunnel was large enough by passing the tips of 3 fingers through easily. I brought the colon through the colostomy tunnel, ensuring no twist to the mesentery. I directed the mesentery medially. I once more examined the operative
field, including the rectal stump, mesentery, and left retroperitoneum and hemostasis was assured. The right aspect of the omentum appeared tattered and at risk for future ischemia, so I resected this portion with the [employer] ligasure and passed it
off for specimen.
I performed a TAP block using 30 cc of 0.25% Marcaine mixed with 0.3 mg of dexamethasone. I injected 5 cc in 3 regions laterally in the transversus abdominis plane and performed this bilaterally. Seprafilm was placed just below the midline
incision. The midline fascia was closed with a running 0 PDS, starting at the corners and ending in the middle. The skin was closed with widely-gapped patrice and Telfa andres and, ultimately, an Aquacel dressing was placed. The left-sided colostomy
was matured in a partially-Brooked fashion (I was unable to Monie the quadrant with the mesentery) with 3-0 Vicryl stitches, and a stoma appliance was placed. Dry dressings were placed at the drain site.
At this point, the procedure was complete. The patient was awoken and extubated without complication. All needle, sponge and instrument counts were reported as correct. The patient tolerated the procedure well and was transferred to the recovery
room in stable condition with the nasogastric tube in place.
Of note, Mike [facility] MD, retail event assistant, was necessary during this procedure for traction, countertraction, and exploratory purposes. I was present for the entire duration of the case.
DICTATED BY: Tony Sheldon MD
[2024-07-26] MEDS: DILAUDID 0.25 MG IV (23:51)
[2024-07-26] MEDS: TORADOL 15 MG IV (23:52)
[2024-07-27] VITALS (15 sets, daily range): BP systolic 95–131; BP diastolic 55–96; PULSE 95; O2SAT 96; BMI 35.4; BMI 35.3
[2024-07-27 00:19] LABS: Hematocrit 34.2 % (37.0-47.0); Hemoglobin 10.5 g/dL (12.0-16.0); INR 1.18; Mean Corp Hgb Conc. 30.7 g/dL (33.0-37.0); Mean Corpuscular Hgb 29.4 pg (27.0-31.0); Mean Corpuscular Volume 95.8 fL (81.0-99.0); Mean Platelet Volume 9.2 fL (7.4-10.4); Platelet Count 363 10^3/uL (130-400); Red Blood Cell Count 3.57 10^6/uL (4.20-5.40); Red Cell Dist. Width 14.4 % (11.5-14.5); White Blood Cell Count 6.7 10^3/uL (4.8-10.8)
[2024-07-27] MEDS: LR IV (00:19)
[2024-07-27 00:20] LABS: APTT 30.3 Sec (23.4-35.0)
[2024-07-27 00:22] LABS: Blood Urea Nitrogen 26 mg/dl (7-17); Calcium 7.7 mg/dl (8.4-10.2); Carbon Dioxide 23 mmol/L (22-30); Chloride 108 mmol/L (98-107); Estimated Creatinine Clearance 53 ml/min; Glucose 132 mg/dl (70-99); Magnesium 1.9 mg/dl (1.6-2.3); Potassium 4.2 mmol/L (3.5-5.1); Sodium 144 mmol/L (135-145); eGFR > 60.00
--- NOTE | 2024-07-27 01:06 | PTCARENOTE ---
Received patient from PACU. On 2 liters NC. Drowsy but awakens to voice. Vital signs stable.
[2024-07-27 01:07] LABS: Absolute Neutrophils -Man Diff 4.4 10^3/uL (1.4-6.5); Band Neutrophils 48 % (0-3); Lymphocytes 20 % (20-51); Metamyelocytes 10 % (-); Monocytes 4 % (2-9); Platelets Checked Yes; Segmented Neutrophils 18 % (42-75)
[2024-07-27 01:08] LABS: Hypochromasia 1+; Normal RBC Morphology No; Total Cells Counted 100; Toxic Granulation 1+; Vacuolated Segs Occasional
[2024-07-27 01:09] LABS: Ovalocytes Occasional; Target Cells Occasional
[2024-07-27 04:15] LABS: Hemoglobin 9.4 g/dL (12.0-16.0); Mean Corp Hgb Conc. 31.3 g/dL (33.0-37.0); Mean Corpuscular Hgb 29.8 pg (27.0-31.0); Mean Corpuscular Volume 95.2 fL (81.0-99.0); Mean Platelet Volume 8.8 fL (7.4-10.4); Platelet Count 391 10^3/uL (130-400); Red Blood Cell Count 3.15 10^6/uL (4.20-5.40); Red Cell Dist. Width 14.5 % (11.5-14.5); White Blood Cell Count 6.2 10^3/uL (4.8-10.8)
[2024-07-27 04:29] LABS: Blood Urea Nitrogen 28 mg/dl (7-17); Calcium 7.5 mg/dl (8.4-10.2); Carbon Dioxide 24 mmol/L (22-30); Chloride 110 mmol/L (98-107); Estimated Creatinine Clearance 48 ml/min; Glucose 131 mg/dl (70-99); Potassium 4.5 mmol/L (3.5-5.1); Sodium 143 mmol/L (135-145); eGFR 58.75
[2024-07-27] MEDS: TORADOL 15 MG IV ×3 (05:29→18:00)
[2024-07-27] MEDS: LR 1000 IV ×3 (05:32→22:49)
[2024-07-27 06:30] LABS: Absolute Neutrophils -Man Diff 5.3 10^3/uL (1.4-6.5); Band Neutrophils 27 % (0-3); Lymphocytes 13 % (20-51); Monocytes 1 % (2-9); Platelets Checked Yes; Segmented Neutrophils 59 % (42-75)
[2024-07-27 06:31] LABS: Anisocytosis 1+; Hypochromasia 1+; Normal RBC Morphology No; Total Cells Counted 100
[2024-07-27] MEDS: DILAUDID 0.5 MG IV ×3 (08:25→18:04)
[2024-07-27] MEDS: FLUSH (NSS) 1 FLUSH IV ×2 (08:26→08:40)
[2024-07-27] MEDS: ZOFRAN 4 MG IV (08:39)
--- NOTE | 2024-07-27 08:48 | PTCARENOTE ---
Assumed care of patient. Left nare lincoln sump gto intermittent suction. Colostomy draining old stool. Adominal aqual cell dressing intact with old drainage noted. Medicated patient with IV dilaudid for pain rating 8/10 at surgical site.
Medicated patient with IV zofran as ordered. Peraza draining dark yellow urine. Will monitor urine output as per colorectal surgery.
--- NOTE | 2024-07-27 11:00 | WOUNDNOTE ---
[facility] RN note: Patient s/p exploratory lap, sigmoidectomy, end colostomy last evening. Stoma appears pink. Loose brown stool in pouch. Colostomy appliance intact. Patient given ostomy supplies ([place] wafer # [id number], [place] seals and [place] pouch
# [id number]) and colostomy teaching folder. Instructed patient how to open and close pouch, cut wafer and snap pouch onto wafer. Patient signed [employer] ostomy secure starter kit authorization fax form. Will fax to [employer]. Instructed patient to have
VN if discharged home. Wound/ostomy nurses off through Tuesday for the Holiday. Encouraged patient to practise emptying her pouch with nursing staff over the weekend.
--- NOTE | 2024-07-27 11:10 | WOUNDNOTE ---
Patient stated her daughter lives very close to her and that her daughter can help her with her ostomy care if needed as daughter is a BUTTON BRADDER with experience with colostomy care as per patient.
--- NOTE | 2024-07-27 12:09 | W.PN.CRS1 ---
Today's Communication / Plan
-
Continue following
Lovenox
Wound care
Continue NG tube
Assessment/Plan
-
POD#1 exlap, sigmoidectomy, take-down of splenic flexure, partial omentectomy, TAP block, creation of end-colostom
-Continue NG tube, await bowel function
-Continue Peraza for I's and O's
-Lovenox for DVT prophylaxis
-air bag curer for stoma teaching
-OR pathology pending
-Out of bed with PT
-Continue Invanz IV
-Trend labs and vitals
-Monitoring urine output as was on the lower side postop
Subjective Data
Procedure
07/27/2024- exlap, sigmoidectomy, take-down of splenic flexure, partial omentectomy, TAP block, creation of end-colostomy
Subjective Data
Date of Service: July 27, 2024
Patient states she has some abdominal pain. Otherwise she feels okay. She has no nausea or vomiting. She has no other complaints at this time.
Objective Data
-
Vital Signs
Temp Pulse Resp BP Pulse Ox
98.5 F 90 13 131/71 98
07/27/24 11:56 07/27/24 06:00 07/27/24 06:00 07/27/24 06:00 07/27/24 06:00
Intake & Output
07/26/24 07/27/24 07/28/24
06:59 06:59 06:59
Intake Total 1600 / 1600
Output Total 275 / 275 275 / 275
Balance 1325 / 1325 -245 / -245
Intake:
IV fluids (Total) 1600 / 1600
Normosol 100 / 100
Amount instilled into GI Tube (
Total)
[place] Sump
Output:
Urine, Peraza 275 / 275 275 / 275
Lab Results
07/27/24 04:00
07/27/24 04:00
Physical Exam
-
General: No Acute Distress and AOx3
Abdomen: Soft, Non Distended, Non Tender and Other (Colostomy warm and pink, RAYA drain with serosanguineous output)
Skin: Warm and Dry
Wound: Dressing in Place
[2024-07-27 13:33] LABS: Albumin 2.3 g/dl (3.5-5.0)
--- NOTE | 2024-07-27 13:42 | WOUNDNOTE ---
[facility] RN note: Faxed [place] ostomy secure starter kit request to [facility].
[2024-07-27] MEDS: FLUSH (NSS) 2 FLUSH IV (14:08)
--- NOTE | 2024-07-27 15:46 | CM ---
Addendum entered by Laisha Diaz RN 07/27/24 15:57:
has been staying with daughter due to his medical issues but will be returning home with patient when she is ready to d/c.
Original Note:
Patient who is s/p ex lap, sigmoidectomy, creation of end-colostomy. O2 2L. NPO/IVF/NGT. Receiving IV Abx. PT Eval pending.
Spoke with daughter Maria Esther, who works at [employer] in and used to be med tech/[employer].
the patient has been residing alone at her split level house with 3 + 1 MOISÉS and 6 + 7 inside stairs between floors.
She was recently discharged from [facility] and has been A/O at home.
The patient has been independent in ADLs and ambulation.
No DME.
Prior [place] VN.
Pharmacy - [facility]
Daughter would like to be here when the patient receives her ostomy training---> TT message to Ostomy Nurse group.
Maria Esther is aware PT hasn't seen her yet. Daughter concerned about stairs at home- no availability to create first floor bedroom.
Plan follow up after seen by PT.
--- NOTE | 2024-07-27 16:25 | W.PN.HOSP.TC ---
Today's Communication/Plan
-
Doing relatively well post-op
I updated patient's daughter over the phone today
Continue NPO, holding home PO antihypertensives for now, continue IV fluids
Assessment / Plan
Assessment / Plan
Physical Exam
General: Not in acute distress
HEENT: Normocephalic
Respiratory: Clear
Cardiac: S1/S2 and RRR
GI: Soft, Tender (at the incisional area) and Non-distended
Musculoskeletal: No Cyanosis
Skin: Warm and Dry
Neuro: Awake, Alert, AO x 3 and Nonfocal/grossly intact
Psych: Intact Judgment/Insight
Assessment/Plan
#Colonic Stricture and Distension with Large Stool [place] Large Bowel Obstruction Sigmoid Colon Perforation status post exlap, sigmoidectomy, take-down of splenic flexure, partial omentectomy, TAP block, creation of end-colostomy, on July 27, 2024
#History of segmental colitis and diverticulitis (followed by GI and CRS outpatient)
#Tachycardia -- likely from above and pain
-Had surgery on 07/26/24 as above
-Continue IV fluids
-Continue IV Ertapenem as per colorectal surgery
-Bowel rest
-Pain control with prn IV Dilaudid
-Continue NPO except meds
-Patient was on meselamine outpatient for segmental colitis and diverticulitis, as per patient's daughter Rangel -- will check with colorectal surgery and GI regarding whether patient should still be on the meselamine
#Recent Suicide attempt
#Recent Benzodiazepene overdose
#Major Depressive Disorder
-Was hospitalized and intubated in the ICU in May 2024
-Was an intentional benzo overdose, likely secondary to Major Depression d/o
-Intubated for airway protection 06/08
-Patient was discharge to a mental health facility at that time
#Hypertension
#Hypertensive urgency
-Continue to monitor blood pressure. Hold home BP meds for now given softer blood pressures.
#Sinus tachycardia
-Likely secondary to colonic distension, bowel stricture and large amounts of stool present
#History of left side neck, Lt Shoulder pain arthritis/muscle stiffness
#Iron deficiency anemia
-Continue to monitor Hgb
#GERD
#Diverticulitis
#History of Acute delirium
DVT prophylaxis: SCDs. Lovenox.
Code Status: Full code
Anticipated Discharge: > 48 hours
Subjective/Interval History
-
Date of Service: July 27, 2024
Patient was seen and examined. She reported that she was not feeling great, but doing okay.
Objective Data
-
Labs:
Laboratory Results
07/27/24
04:00
Sodium 143
Potassium 4.5
Chloride 110 H
Carbon Dioxide 24
BUN 28 H
Creatinine 1.0
Glucose 131 H
Calcium 7.5 L
Vital Signs:
Vital Signs
Temp Pulse Resp BP Pulse Ox
99.7 F 92 10 110/62 97
07/27/24 15:24 07/27/24 14:30 07/27/24 14:30 07/27/24 14:00 07/27/24 14:30
I&O
07/26/24 07/27/24 07/28/24
06:59 06:59 06:59
Intake Total 1600 / 1600
Output Total 275 / 275 375 / 375
Balance 1325 / 1325 -345 / -345
[2024-07-27] MEDS: PROTONIX 40 MG PO (18:00)
--- NOTE | 2024-07-27 18:00 | PTCARENOTE ---
Medicated patient with IV dilaudid x3 for pain at abdominal surgical site. Left sided colostomy draining old stool. Total urine output in zambrano for day shift 550 mls yellow urine. Patient tolerating sips and chips. [place] sump drained 210 mls
green liquid. Irrigating [place] sump as ordered. Patient using call bolivar appropriately. SR on monitor. Vital signs stable.
[2024-07-27] MEDS: LOVENOX 40 MG SC (18:04)
[2024-07-27] MEDS: INVANZ 60 MG IV (19:55)
[2024-07-27] MEDS: DILAUDID 0.25 MG IV (22:13)
--- NOTE | 2024-07-27 22:27 | PTCARENOTE ---
Pt with heart rate elevated to 130 sustained. BP 124/66. Temp 98.8. Pt initially denied pain. EKG done. After EKG done pt stated she had pain 5/10 on R abdomen. Med with dilaudid per order. Triston CAMARENA advised of above.
[2024-07-28] VITALS (12 sets, daily range): BP systolic 99–133; BP diastolic 49–97; BMI 35.9
[2024-07-28] MEDS: TORADOL 15 MG IV ×3 (00:36→12:12)
--- NOTE | 2024-07-28 00:44 | PTCARENOTE ---
Heart rate improved after dilaudid.
[2024-07-28] MEDS: DILAUDID 0.5 MG IV ×3 (03:09→20:38)
[2024-07-28] MEDS: LR 1000 IV ×2 (06:07→17:35)
[2024-07-28 08:50] LABS: Hematocrit 26.6 % (37.0-47.0); Hemoglobin 8.1 g/dL (12.0-16.0); Mean Corp Hgb Conc. 30.5 g/dL (33.0-37.0); Mean Corpuscular Hgb 28.8 pg (27.0-31.0); Mean Corpuscular Volume 94.7 fL (81.0-99.0); Mean Platelet Volume 9.1 fL (7.4-10.4); Platelet Count 387 10^3/uL (130-400); Red Blood Cell Count 2.81 10^6/uL (4.20-5.40); Red Cell Dist. Width 14.6 % (11.5-14.5); White Blood Cell Count 12.7 10^3/uL (4.8-10.8)
[2024-07-28 09:29] LABS: Blood Urea Nitrogen 34 mg/dl (7-17); Carbon Dioxide 28 mmol/L (22-30); Chloride 106 mmol/L (98-107); Estimated Creatinine Clearance 44 ml/min; Glucose 77 mg/dl (70-99); Magnesium 2.2 mg/dl (1.6-2.3); Potassium 4.1 mmol/L (3.5-5.1); Sodium 142 mmol/L (135-145)
[2024-07-28 09:39] LABS: Absolute Neutrophils -Man Diff 11.3 10^3/uL (1.4-6.5); Anisocytosis 1+; Band Neutrophils 30 % (0-3); Hypochromasia 1+; Lymphocytes 8 % (20-51); Monocytes 3 % (2-9); Normal RBC Morphology No; Platelets Checked Yes; Segmented Neutrophils 59 % (42-75); Total Cells Counted 100
--- NOTE | 2024-07-28 11:42 | W.PN.HOSP.TC ---
Today's Communication/Plan
-
Please see below and surgery's note from today
Assessment / Plan
Assessment / Plan
Physical Exam
General: Not in acute distress
HEENT: Normocephalic
Respiratory: Clear
Cardiac: S1/S2 and RRR
GI: Soft, Tender (at the incisional area) and Non-distended
Musculoskeletal: No Cyanosis
Skin: Warm and Dry
Neuro: Awake, Alert, AO x 3 and Nonfocal/grossly intact
Psych: Intact Judgment/Insight
Assessment/Plan
#Colonic Stricture and Distension with Large Stool [place] Large Bowel Obstruction Sigmoid Colon Perforation status post exlap, sigmoidectomy, take-down of splenic flexure, partial omentectomy, TAP block, creation of end-colostomy, on July 27, 2024
#History of segmental colitis and diverticulitis (followed by GI and CRS outpatient)
#Tachycardia -- likely from above and pain
-Had surgery on 07/26/24 as above
-Continue IV fluids
-Continue IV Ertapenem as per colorectal surgery
-Bowel rest
-Pain control with prn IV Dilaudid
-Continue NPO except meds with clamp trial of NGT
-Patient was on meselamine outpatient for segmental colitis and diverticulitis, as per patient's daughter Rangel -- will check with colorectal surgery and GI regarding whether patient should still be on the meselamine
-Hold NSAIDs given rise in cr and decrease in h/h
#Recent Suicide attempt
#Recent Benzodiazepene overdose
#Major Depressive Disorder
-Was hospitalized and intubated in the ICU in May 2024
-Was an intentional benzo overdose, likely secondary to Major Depression d/o
-Intubated for airway protection 06/08
-Patient was discharge to a mental health facility at that time
-QTc monitoring with SSRI and Zofran
#Hypertension
#Hypertensive urgency
-Continue to monitor blood pressure. Hold home BP meds for now given softer blood pressures.
#Sinus tachycardia
-Likely secondary to colonic distension, bowel stricture and large amounts of stool present
#History of left side neck, Lt Shoulder pain arthritis/muscle stiffness
#Iron deficiency anemia
-Continue to monitor Hgb
#GERD
#Diverticulitis
#History of Acute delirium
DVT prophylaxis: SCDs. Hold Lovenox, as per surgery, until Hgb stabilizes.
Code Status: Full code
Anticipated Discharge: > 48 hours
Subjective/Interval History
-
Date of Service: July 28, 2024
Patient was seen and examined. She reported not feeling great, but denied any new, significant symptoms or complaints.
Objective Data
-
Labs:
Laboratory Results
07/28/24
08:27
WBC 12.7 H
Hgb 8.1 L
Hct 26.6 L
Plt Count 387
Sodium 142
Potassium 4.1
Chloride 106
Carbon Dioxide 28
BUN 34 H
Creatinine 1.1 H
Glucose 77
Calcium 8.0 L
Vital Signs:
Vital Signs
Temp Pulse Resp BP Pulse Ox
98.1 F 94 12 120/60 98
07/28/24 07:30 07/28/24 06:21 07/28/24 06:21 07/28/24 06:21 07/28/24 08:20
I&O
07/27/24 07/28/24 07/29/24
06:59 06:59 06:59
Intake Total 1600 / 1600 180 / 180
Output Total 275 / 275 1475 / 1475
Balance 1325 / 1325 -1295 / -1295
[2024-07-28] MEDS: LEXAPRO 20 MG PO (12:10)
[2024-07-28] MEDS: PROTONIX 40 MG PO (12:10)
[2024-07-28] MEDS: DILAUDID 0.25 MG IV (12:11)
--- NOTE | 2024-07-28 15:24 | W.PN.GS2 ---
Addendum entered and electronically signed by Matti Kruger MD 07/28/24 15:41:
I saw and examined the patient.
The Global Marketing Coordinator's note was reviewed and I agree with the note.
Comment: Stable. Pain controlled. OOBTC. Exam approp, stoma with small gas/stool. NGT clamp trial. Rising Cr, decr H/H noted, will hold NSAIDs, lovenox
Original Note:
Today's Communication / Plan
-
NGT clamp trial
Assessment / Plan
-
74 yo female with LBO and sigmoid perforation POD#2 exlap, sigmoidectomy, take-down of splenic flexure, partial omentectomy, TAP block, creation of end-colostomy
AFVSS
Mild leukocytosis, acute anemia with h/h trending down. No active bleeding noted, suspect secondary to hemodilution and equilibration from expected intraoperative losses
Mild BRIAN
Beginning to have some bowel function again
--Continue NPO with clamp trial of NGT
--Hold NSAIDs given rise in cr and decrease in h/h
--Hold lovenox until h/h stabilizes
--Change protonix to IV for GI ppx
--C/W IVF
--C/W IV abx, OR cx pending
--Trend labs
--OOB ambulate/PT consulted
--C/W RAYA drain
--Voiding trial
--Stoma/wound nurse to follow
Subjective Data
-
Date of Service: July 28, 2024
Patient seen and examined at bedside with Dr. Kruger. Denies n/v. Pain present but manageable with current analgesics. Reports bloating is better.
Objective Data
-
Intake and Output
07/27/24 07/28/24 07/29/24
06:59 06:59 06:59
Intake Total 1600 / 1600 180 / 180
Output Total 275 / 275 1475 / 1475
Balance 1325 / 1325 -1295 / -1295
Intake:
IV fluids (Total) 1600 / 1600
Normosol 100 / 100
Amount instilled into GI Tube ( 180 / 180
Total)
[place] Sump 180 / 180
Output:
Gastrointestinal tube output ( 700 / 700
Total)
[place] Sump 700 / 700
Urine, Peraza 275 / 275 775 / 775
Vital Signs
Temp Pulse Resp BP Pulse Ox
98.3 F 94 13 118/65 95
07/28/24 11:34 07/28/24 14:00 07/28/24 14:00 07/28/24 14:00 07/28/24 14:03
Lab Results
07/28/24 08:27
07/28/24 08:27
Calcium 8.0 mg/dl (8.4-10.2) L 07/28/24 08:27
Magnesium 2.2 mg/dl (1.6-2.3) 07/28/24 08:27
Total Bilirubin 0.7 mg/dl (0.2-1.3) 07/26/24 14:34
AST 20 U/L (14-36) 07/26/24 14:34
ALT 10 U/L (0-35) 07/26/24 14:34
Alkaline Phosphatase 93 U/L (38-126) 07/26/24 14:34
Total Protein 6.5 g/dl (6.3-8.2) 07/26/24 14:34
Albumin 2.3 g/dl (3.5-5.0) L 07/27/24 13:02
Physical Exam
-
NAD
ABD softly distended, mild generalized tenderness. Midline incision with shadowing, dressing intact.
Stoma pink/viable and productive of small amount of stool with flatus noted
NGT with light outputs, RAYA with SSF
--- NOTE | 2024-07-28 18:38 | PTCARENOTE ---
Pt received in bed @ 0700. AAOx3. SaO2 95% on 1L NC; more comfortable with nasal canula and not willing to trial room air at this time. Sinus rhythm on cardiac monitor technician. Trace pitting LE edema. Bowel sounds (+). Left sided colostomy with stool and
flatus. Received with NG tube to continuous 80 mmHg. Green brown output. Clamped @ noon and checked at 1600 per order. 10ml suctioned and NG tube was removed per order. Pt in chair for 4.5 hours. PRN Dilaudid after ambulation with (+) effect. LR
infusing @ 125 ml/hr.
--- NOTE | 2024-07-28 20:30 | PTCARENOTE ---
soda fountain manager, pt aaox3, c/o 07/07 abd pain- prn dilaudid given per JAN. SR-ST HR 90s-low 100s. RFA IV WNL- IVF infusing per work list. L colostomy w/ stoma WNL- draining liquid brown stool. JAMEL ace with mod amt shadowing- area marked for
monitoring. purewick applied. POC discussed, call bolivar with pt.
[2024-07-28] MEDS: INVANZ 60 MG IV (20:38)
[2024-07-29] VITALS (22 sets, daily range): BP systolic 94–150; BP diastolic 54–97; BMI 36.7
[2024-07-29] MEDS: DILAUDID 0.5 MG IV ×2 (00:41→05:49)
[2024-07-29] MEDS: LR 1000 IV ×4 (00:41→21:20)
--- NOTE | 2024-07-29 02:02 | PTCARENOTE ---
pt sustaining HR in 130s- pt denies pain, BP stable, temp 98.3F, PSwetha made aware. AM labs sent.
[2024-07-29 02:52] LABS: Hemoglobin 7.1 g/dL (12.0-16.0); Mean Corp Hgb Conc. 30.9 g/dL (33.0-37.0); Mean Corpuscular Volume 93.9 fL (81.0-99.0); Mean Platelet Volume 8.8 fL (7.4-10.4); Platelet Count 334 10^3/uL (130-400); Red Blood Cell Count 2.45 10^6/uL (4.20-5.40); Red Cell Dist. Width 14.6 % (11.5-14.5); White Blood Cell Count 12.7 10^3/uL (4.8-10.8)
[2024-07-29 03:03] LABS: Blood Urea Nitrogen 34 mg/dl (7-17); Calcium 7.8 mg/dl (8.4-10.2); Carbon Dioxide 26 mmol/L (22-30); Chloride 108 mmol/L (98-107); Estimated Creatinine Clearance 40 ml/min; Glucose 64 mg/dl (70-99); Magnesium 2.2 mg/dl (1.6-2.3); Sodium 143 mmol/L (135-145); eGFR 47.21
[2024-07-29 03:38] LABS: Segmented Neutrophils 78 % (42-75)
[2024-07-29 03:39] LABS: Absolute Neutrophils -Man Diff 11.9 10^3/uL (1.4-6.5); Band Neutrophils 16 % (0-3); Eosinophils 2 % (0-6); Lymphocytes 2 % (20-51); Monocytes 2 % (2-9); Platelets Checked Yes
[2024-07-29 03:40] LABS: Hypochromasia 1+; Normal RBC Morphology No
[2024-07-29 03:42] LABS: Basophilic Stippling Occasional; Ovalocytes Occasional; Target Cells Occasional; Total Cells Counted 100; Toxic Granulation Occassional
[2024-07-29 04:11] LABS: Tear Drop Red Blood Cells Occasional
[2024-07-29] MEDS: LEXAPRO 20 MG PO (08:01)
[2024-07-29] MEDS: NSS (PRESERVATIVE FREE) 10 ML IV (08:01)
[2024-07-29] MEDS: PROTONIX IV 40 MG IV (08:01)
[2024-07-29] MEDS: TYLENOL 650 MG PO ×3 (11:08→19:47)
--- NOTE | 2024-07-29 12:00 | W.PN.GS2 ---
Addendum entered and electronically signed by Matti Kruger MD 07/29/24 14:30:
I saw and examined the patient.
The Program Director Substance Abuse's note was reviewed and I agree with the note.
Comment: Comfortable. Mild approp ttp on exam, stoma ppv and functioning. drain ss. Hb drift with tachycardia, Hospitalist will give 1 u PRBC. Trial cld
Original Note:
Today's Communication / Plan
-
Clear liquids
Pain management
Assessment / Plan
-
74 yo female with LBO and sigmoid perforation POD#3 exlap, sigmoidectomy, take-down of splenic flexure, partial omentectomy, TAP block, creation of end-colostomy
Tachycardia noted, vitals otherwise stable
Mild leukocytosis, acute anemia with h/h trending down. No active bleeding noted, suspect secondary to hemodilution and equilibration from expected intraoperative losses
Mild BRIAN
Beginning to have some bowel function again
--Advance to CLD
--D/W hospitalist, will transfuse x1 unit
--Hold NSAIDs given rise in cr and decrease in h/h
--Hold lovenox until h/h stabilizes
--C/W protonix to IV for GI ppx
--C/W IVF
--C/W IV abx, OR cx pending prelim with GNB: changing to IV merem for broader coverage
--Trend labs
--OOB ambulate/PT consulted
--C/W RAYA drain
--Multimodal analgesics: PO options added
--Stoma/wound nurse to follow
Subjective Data
-
Date of Service: July 29, 2024
Patient seen and examined at bedside with Dr. Kruger. Denies n/v. Notes pain meds aren't lasting long enough for adequate relief. Voiding since removal of zambrano.
Objective Data
-
Intake and Output
08/07/29/24 07/30/24
06:59 06:59 06:59
Intake Total 180 / 180 1030 / 1030
Output Total 1475 / 1475 625 / 625
Balance -1295 / -1295 405 / 405
Intake:
IV fluids (Total) 1000 / 1000
Amount instilled into GI Tube ( 180 / 180 30 / 30
Total)
[place] Sump 180 / 180 30 / 30
Output:
Liquid stool amount 175 / 175
Colostomy 175 / 175
Gastrointestinal tube output ( 700 / 700 200 / 200
Total)
[place] Sump 700 / 700 200 / 200
Urine, Zambrano 775 / 775
Urine, Voided 250 / 250
Other:
Number of approximated MODERATE 1
amounts of urine
Vital Signs
Temp Pulse Resp BP Pulse Ox
98.5 F 132 14 99/64 98
07/29/24 07:54 07/29/24 09:01 07/29/24 09:01 07/29/24 09:01 07/29/24 09:01
Lab Results
07/29/24 02:41
07/29/24 02:41
Calcium 7.8 mg/dl (8.4-10.2) L 07/29/24 02:41
Magnesium 2.2 mg/dl (1.6-2.3) 07/29/24 02:41
Total Bilirubin 0.7 mg/dl (0.2-1.3) 07/26/24 14:34
AST 20 U/L (14-36) 07/26/24 14:34
ALT 10 U/L (0-35) 07/26/24 14:34
Alkaline Phosphatase 93 U/L (38-126) 07/26/24 14:34
Total Protein 6.5 g/dl (6.3-8.2) 07/26/24 14:34
Albumin 2.0 g/dl (3.5-5.0) L 07/29/24 02:41
Physical Exam
-
NAD
ABD softly distended, mild generalized tenderness. Midline incision with shadowing, dressing intact.
Stoma pink/viable and productive of small amount of stool with flatus noted
RAYA with SSF
--- NOTE | 2024-07-29 13:26 | W.PN.HOSP.TC ---
Today's Communication/Plan
-
Transfuse 1 unit PRBC
Antibiotics changed from Ertapenem to Meropenem to cover Pseudomonas, patient also has history of Pseudomonas, cultures from OR are preliminarily positive
Continue IV fluids
Clear Liquids Diet
Assessment / Plan
Assessment / Plan
Physical Exam
General: Not in acute distress
HEENT: Normocephalic
Respiratory: Clear
Cardiac: S1/S2 and RRR
GI: Soft, Tender (at the incisional area) and Non-distended
Musculoskeletal: No Cyanosis
Skin: Warm and Dry
Neuro: Awake, Alert, AO x 3 and Nonfocal/grossly intact
Psych: Intact Judgment/Insight
Assessment/Plan
#Colonic Stricture and Distension with Large Stool [place] Large Bowel Obstruction Sigmoid Colon Perforation status post exlap, sigmoidectomy, take-down of splenic flexure, partial omentectomy, TAP block, creation of end-colostomy, on July 27, 2024
#History of segmental colitis and diverticulitis (followed by GI and CRS outpatient)
#Tachycardia -- likely from above and pain
-Had surgery on 07/26/24 as above
-Continue IV fluids
-Patient has a history of Pseudomonas and current operative abdominal fluid growing gram negative bacilli
-Stop IV Ertapenem and switch to Meropenem to cover for possible Pseudomonas
-Okay to advance to Clear Liquid Diet
-Pain control with prn IV Dilaudid
-Continue NPO except meds with clamp trial of NGT
-Patient was on meselamine outpatient for segmental colitis and diverticulitis, as per patient's daughter Rangel -- need to double check with colorectal surgery and GI regarding whether patient should still be on the meselamine -- awaiting GI input
-Hold NSAIDs given rise in cr and decrease in h/h
#Concern for acute blood loss anemia post-op
#Sinus Tachycardia on 07/29/24
-Patient not actively in pain or fever at the time of HR 130s on 07/29/24, could be explained by low Hgb (see below)
-Hgb 7.1 on July 29, 2024 -- this is a significant drop from initial Hgb this hospitalization
-1 unit of PRBC ordered to be given on July 29, 2024
-Hopefully creatinine improves with blood transfusion
#Recent Suicide attempt
#Recent Benzodiazepene overdose
#Major Depressive Disorder
-Was hospitalized and intubated in the ICU in May 2024
-Was an intentional benzo overdose, likely secondary to Major Depression d/o
-Intubated for airway protection 06/08
-Patient was discharge to a mental health facility at that time
-QTc monitoring with SSRI and Zofran
#Hypertension
#Hypertensive urgency
-Continue to monitor blood pressure. Hold home BP meds for now given softer blood pressures.
#Sinus tachycardia
-Likely secondary to colonic distension, bowel stricture and large amounts of stool present
#History of left side neck, Lt Shoulder pain arthritis/muscle stiffness
#Iron deficiency anemia
-Continue to monitor Hgb
#GERD
#Diverticulitis
#History of Acute delirium
DVT prophylaxis: SCDs. Hold Lovenox, as per surgery, until Hgb stabilizes.
GI Prophylaxis: IV Protonix
Code Status: Full code
I spoke to patient's nurse, surgical team and patient's daughter Rangel today.
Anticipated Discharge: > 48 hours
Subjective/Interval History
-
Date of Service: July 29, 2024
Patient was seen and examined. She reported no new complaints, although her daughter did mention over the phone that she had been having on and off right lower quadrant abdominal pain over the past couple of days.
Objective Data
-
Labs:
Laboratory Results
07/29/24 07/29/24
01:59 02:41
WBC Cancelled 12.7 H
Hgb Cancelled 7.1 L
Hct Cancelled 23.0 L
Plt Count Cancelled 334
Sodium Cancelled 143
Potassium Cancelled 4.0
Chloride Cancelled 108 H
Carbon Dioxide Cancelled 26
BUN Cancelled 34 H
Creatinine Cancelled 1.2 H
Glucose Cancelled 64 L
Calcium Cancelled 7.8 L
Vital Signs:
Vital Signs
Temp Pulse Resp BP Pulse Ox
98.9 F 132 14 99/64 98
07/29/24 11:50 07/29/24 09:01 07/29/24 09:01 07/29/24 09:01 07/29/24 09:01
I&O
07/28/24 07/29/24 07/30/24
06:59 06:59 06:59
Intake Total 180 / 180 1030 / 1030
Output Total 1475 / 1475 625 / 625
Balance -1295 / -1295 405 / 405
[2024-07-29] MEDS: MERREM 500 MG IV ×2 (14:44→21:20)
[2024-07-29] MEDS: STERILE WATER FOR INJECTION 10 ML IV ×2 (14:44→21:21)
--- NOTE | 2024-07-29 18:18 | PTCARENOTE ---
Pt received in bed @ 0700. AAOx3. PRN Dilaudid administered for abdominal pain. Sao2 96% on 1L NC. Shallow breaths with diminished breath sounds. Sinus Tach on wireless sales associate. HR 100s with self-terminating periods of sustained 130. MAP > 65.
Midline abdominal incision with drainage. Has not extended past marked boundaries from last night. Hgb 7.1 on morning labs. New order for 1 unit of PRBC's. Blood bank unable to provide blood at this time. Awaiting delivery from [facility].
Amos, Dr. Kruger, and MIGUE Dowd notified. (L) side colostomy with stool output. (+) flatus. Pt upgraded to clear liquid diet. Tolerating without nausea. Voiding maite urine. LR infusing @ 125 ml/hr.
--- NOTE | 2024-07-29 18:27 | PTCARENOTE ---
Pt restless in bed. Assisted x1 OOB to chair. When returning to bed, pt stated her left knee was weak because it has not been in use. She states this is a chronic issue. Unable to return to bed, pt slowly assisted by this nurse to seated position on
pillows placed on floor. No harsh contact made with floor and pt denying pain. Pt unable to stand from floor. Compa lift used to return pt to bed.
--- NOTE | 2024-07-29 18:32 | PTCARENOTE ---
Blood not delivered yet at this time. Will pass on to next shift.
--- NOTE | 2024-07-29 18:35 | PTCARENOTE ---
Daughter, Rangel Virgen, called to notify of delay of blood transfusion and pt failed transfer back to bed. Appreciative of update. No further questions.
[2024-07-29] MEDS: ULTRAM 50 MG PO (19:47)
[2024-07-30] VITALS (12 sets, daily range): BP systolic 127–167; BP diastolic 64–97; PULSE 85
[2024-07-30] MEDS: TYLENOL PO ×2 (01:05→04:58)
--- NOTE | 2024-07-30 01:12 | PTCARENOTE ---
ax3 sinus tach at times- bp wnl. tolerated 1 unit prbc's- pain managed with tylenol and tramadol. purewick draining maite urine
[2024-07-30] MEDS: LR 1000 IV ×3 (03:12→21:19)
[2024-07-30] MEDS: MERREM 500 MG IV ×3 (05:06→21:15)
[2024-07-30] MEDS: STERILE WATER FOR INJECTION 10 ML IV ×3 (05:06→21:15)
[2024-07-30 05:08] LABS: Blood Urea Nitrogen 33 mg/dl (7-17); Calcium 8.3 mg/dl (8.4-10.2); Carbon Dioxide 30 mmol/L (22-30); Chloride 106 mmol/L (98-107); Estimated Creatinine Clearance 41 ml/min; Glucose 102 mg/dl (70-99); Magnesium 2.2 mg/dl (1.6-2.3); Phosphorus 3.6 mg/dl (2.5-4.5); Potassium 3.8 mmol/L (3.5-5.1); Sodium 143 mmol/L (135-145); eGFR 47.21
[2024-07-30 05:45] LABS: % Basophils 0.1 % (0-2); % Eosinophils 1.5 % (0-6); % Immature Granulocytes 0.5 % (0-0.5); % Lymphocytes 4.6 % (20.5-51.1); % Monocytes 4.8 % (1.7-9.3); % Neutrophils 88.5 % (42.2-75.2); Absolute Eosinophils 0.2 10^3/uL (0-0.7); Absolute Immature Granulocytes 0.1 10^3/uL (0-0.05); Absolute Lymphocytes 0.7 10^3/uL (1.2-3.4); Absolute Monocytes 0.7 10^3/uL (0.1-0.6); Absolute Neutrophils 12.8 10^3/uL (1.4-6.5); Hematocrit 28.1 % (37.0-47.0); Hemoglobin 8.9 g/dL (12.0-16.0); Mean Corp Hgb Conc. 31.7 g/dL (33.0-37.0); Mean Corpuscular Hgb 30.2 pg (27.0-31.0); Mean Corpuscular Volume 95.3 fL (81.0-99.0); Nucleated Red Blood Cells % 0 %; Platelet Count 337 10^3/uL (130-400); Red Blood Cell Count 2.95 10^6/uL (4.20-5.40); Red Cell Dist. Width 14.8 % (11.5-14.5); White Blood Cell Count 14.5 10^3/uL (4.8-10.8)
[2024-07-30] MEDS: TYLENOL 650 MG PO ×5 (08:11→23:13)
[2024-07-30] MEDS: LEXAPRO 20 MG PO (08:11)
[2024-07-30] MEDS: NSS (PRESERVATIVE FREE) 10 ML IV (08:12)
[2024-07-30] MEDS: PROTONIX IV 40 MG IV (08:12)
[2024-07-30] MEDS: ULTRAM 50 MG PO (08:13)
--- NOTE | 2024-07-30 08:25 | W.PN.HOSP.TC ---
Today's Communication/Plan
-
see A/P
Assessment / Plan
Assessment / Plan
A/P:
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
# History of segmental colitis and diverticulitis (followed by GI and CRS outpatient)
status post exlap, sigmoidectomy, take-down of splenic flexure, partial omentectomy, TAP block, creation of end-colostomy, on July 27, 2024
Continue clears, ADAT per CRS
Cont RL at 100 cc/hr
Follow OR wound cultures, currently growing gram negative bacilli
Cont Meropenem to include Pseudomonas coverage
Pain control with prn IV Dilaudid
GI was consulted to determine if pt still needs MOTOR OPERATOR mesalamine or not
# Sinus tachycardia
start low dose metoprolol 12.5 mg BID
Monitor HR and BP
# Acute blood loss anemia post-op
# Sinus Tachycardia, resolved
Hgb 7.1 on 07/29, s/p 1 unit PRBC transfusion, Hgb improved to 8.9 today
# Recent Suicide attempt
# Recent Benzodiazepine overdose
# Major Depressive Disorder
# History of Acute delirium
Was hospitalized and intubated in the ICU in May 2024
Was an intentional benzo overdose, likely secondary to Major Depression d/o
Intubated for airway protection 06/08
Patient was discharge to a mental health facility at that time
QTc monitoring with SSRI and Zofran
# Hypertension
# Hypertensive urgency
Continue to monitor blood pressure.
Holding MOTOR OPERATOR BP meds
start low dose metoprolol 12.5 mg BID
# History of left side neck, Lt Shoulder pain arthritis/muscle stiffness
# Iron deficiency anemia
Continue to monitor Hgb
# GERD
DVT prophylaxis: resume Lovenox SQ
GI Prophylaxis: IV Protonix
Code Status: Full code
updated daughter on the phone
total time spent 51 min
Anticipated Discharge: > 48 hours
Subjective/Interval History
-
Date of Service: July 30, 2024
Objective Data
-
Labs:
Laboratory Results
07/30/24
04:13
WBC 14.5 H
Hgb 8.9 L D
Hct 28.1 L
Plt Count 337
Sodium 143
Potassium 3.8
Chloride 106
Carbon Dioxide 30
BUN 33 H
Creatinine 1.2 H
Glucose 102 H
Calcium 8.3 L
Vital Signs:
Vital Signs
Temp Pulse Resp BP Pulse Ox
36.9 C 97 15 135/77 97
07/30/24 03:20 07/30/24 06:00 07/30/24 06:00 07/30/24 06:00 07/30/24 06:00
I&O
07/29/24 07/30/24 07/31/24
06:59 06:59 06:59
Intake Total 1030 / 1030 3470 / 3470
Output Total 625 / 625 550 / 550
Balance 405 / 405 2920 / 2920
Review of Systems
-
All other systems: Reviewed and negative
Physical Exam
-
General: Well Developed, Well Nourished, No Apparent Distress, Comfortable, Conversant and Obese
Respiratory: Clear to Auscultation and Non Labored Respirations; Negative Accessory Resp Muscle Use
Cardiac: Regular Rhythm and S1/S2
GI: Soft, Nondistended and Ostomy
Skin: Warm and Dry
Neuro: Awake, Alert and Oriented
Psych: Calm and Intact Judgement/Insight
Data Reviewed
-
Labs: Labs Reviewed by me
[2024-07-30] MEDS: LOPRESSOR 12.5 MG PO ×2 (08:50→19:40)
--- NOTE | 2024-07-30 09:15 | W.PN.CRS1 ---
Today's Communication / Plan
-
continue clears
UA/chest xray/dopplers
repeat h/h today
Assessment/Plan
-
74 yo female with LBO and sigmoid perforation POD#4 exlap, sigmoidectomy, take-down of splenic flexure, partial omentectomy, TAP block, creation of end-colostomy
Tachycardia noted, vitals otherwise stable
WBC 14.5 from 12.7
Mild BRIAN - 1.2
07/29- 1 unit PRBCs
--Continue clear liquid diet today
--Urinalysis and chest xray given rise in WBC, LE dopplers b/l
--Hold NSAIDs given rise in cr and decrease in h/h
--Hold lovenox until h/h stabilizes
--C/W protonix to IV for GI ppx
--C/W IVF
--C/W IV abx, OR cx pending prelim with GNB, IV merem for broader coverage
--Trend labs, will order repeat H/H at 1pm
--OOB ambulate/PT consulted
--C/W RAYA drain - will remove prior to d/c
--Multimodal analgesics
--Stoma/wound nurse to follow
Subjective Data
Procedure
07/27/2024- exlap, sigmoidectomy, take-down of splenic flexure, partial omentectomy, TAP block, creation of end-colostomy
Subjective Data
Date of Service: July 30, 2024
Patient states she has no nausea or vomiting. She recently took pain medication for her abdominal pain. She is tired.
Objective Data
-
Vital Signs
Temp Pulse Resp BP Pulse Ox
98.4 F 128 15 146/73 100
07/30/24 03:20 07/30/24 08:00 07/30/24 08:00 07/30/24 08:00 07/30/24 08:00
Intake & Output
07/29/24 07/30/24 07/31/24
06:59 06:59 06:59
Intake Total 1030 / 1030 3470 / 3470
Output Total 625 / 625 550 / 550
Balance 405 / 405 2920 / 2920
Intake:
Oral fluids 720 / 720
IV fluids (Total) 1000 / 1000 2500 / 2500
Amount instilled into GI Tube ( 30 / 30
Total)
[place] Sump 30 / 30
Blood Product Amount Infused ( 250 / 250
mL)
Packed Rbc Leukoreduced Unit 250 / 250
[id number]
Output:
Liquid stool amount 175 / 175 150 / 150
Colostomy 175 / 175 150 / 150
Gastrointestinal tube output ( 200 / 200
Total)
[place] Sump 200 / 200
Urine, Voided 250 / 250 400 / 400
Other:
Number of approximated MODERATE 1
amounts of urine
Lab Results
07/30/24 04:13
07/30/24 04:13
Physical Exam
-
General: No Acute Distress and AOx3
Abdomen: Soft, Distended (mild), Non Tender and Other (colostomy warm and pink with output, small amount of stool)
Skin: Warm and Dry
--- NOTE | 2024-07-30 09:26 | PTCARENOTE ---
Pt AAOx3 SR . Lr now at 100an hour O2 down to 3l co of indiigestion points to left abd when asked if it could be gas pain pt stated yes. Meds given Tramadol given as ordered . Pt to see pt.
[2024-07-30 13:58] LABS: Urine Albumin Trace (Neg - Trace); Urine Bilirubin Negative (Negative); Urine Character Slightly Cloudy (Clear); Urine Color Yellow; Urine Glucose Negative (Negative); Urine Ketone Negative (Negative); Urine Leukocyte Negative (Negative); Urine Nitrite Negative (Negative); Urine Occult Blood Negative (Negative); Urine Urobilinogen Negative (Neg - 1+)
--- NOTE | 2024-07-30 15:31 | PTCARENOTE ---
Dr Chanel TT re pt using Voltern and Lidocaine patches
[2024-07-30 15:55] LABS: Hematocrit 27.2 % (37.0-47.0); Hemoglobin 8.6 g/dL (12.0-16.0)
[2024-07-30] MEDS: HEPARIN 5000 UNITS SC ×2 (16:37→23:13)
--- NOTE | 2024-07-30 20:02 | PTCARENOTE ---
Received pt from [facility]. Pt is AAOx3, drowsy, anxious, forgetful @ times. NSR/sinus tach on the monitor. On 3L NC O2 sat 100%, lungs diminished. Pw in place for stress incont. L colostomy. Midline incision dressing drainage. SCDs in place. LR
infusing @ 100 ml/hr. Hygiene provided. Pt is laying in bed with call bolivar in reach.
[2024-07-31] VITALS (11 sets, daily range): BP systolic 120–170; BP diastolic 63–86; PULSE 95; O2SAT 98; BMI 38.3
[2024-07-31] MEDS: TYLENOL 650 MG PO ×5 (04:26→23:10)
[2024-07-31] MEDS: STERILE WATER FOR INJECTION 10 ML IV ×2 (05:00→11:42)
[2024-07-31] MEDS: MERREM 500 MG IV ×2 (05:00→11:42)
[2024-07-31 05:10] LABS: Blood Urea Nitrogen 28 mg/dl (7-17); Calcium 8.6 mg/dl (8.4-10.2); Carbon Dioxide 23 mmol/L (22-30); Chloride 110 mmol/L (98-107); Estimated Creatinine Clearance 72 ml/min; Glucose 84 mg/dl (70-99); Magnesium 2.2 mg/dl (1.6-2.3); Potassium 4.3 mmol/L (3.5-5.1); Sodium 143 mmol/L (135-145); eGFR > 60.00
[2024-07-31 05:54] LABS: % Basophils 0.3 % (0-2); % Immature Granulocytes 0.9 % (0-0.5); % Lymphocytes 5.2 % (20.5-51.1); % Monocytes 7.4 % (1.7-9.3); % Neutrophils 84.2 % (42.2-75.2); Absolute Eosinophils 0.2 10^3/uL (0-0.7); Absolute Immature Granulocytes 0.1 10^3/uL (0-0.05); Absolute Lymphocytes 0.6 10^3/uL (1.2-3.4); Absolute Monocytes 0.9 10^3/uL (0.1-0.6); Absolute Neutrophils 9.9 10^3/uL (1.4-6.5); Hematocrit 30.2 % (37.0-47.0); Hemoglobin 9.1 g/dL (12.0-16.0); Mean Corp Hgb Conc. 30.1 g/dL (33.0-37.0); Mean Corpuscular Hgb 28.6 pg (27.0-31.0); Mean Platelet Volume 8.9 fL (7.4-10.4); Nucleated Red Blood Cells % 0 %; Platelet Count 339 10^3/uL (130-400); Red Blood Cell Count 3.18 10^6/uL (4.20-5.40); Red Cell Dist. Width 14.7 % (11.5-14.5); White Blood Cell Count 11.7 10^3/uL (4.8-10.8)
[2024-07-31] MEDS: LOPRESSOR 12.5 MG PO ×2 (07:13→20:35)
[2024-07-31] MEDS: NSS (PRESERVATIVE FREE) 10 ML IV (07:29)
[2024-07-31] MEDS: LEXAPRO 20 MG PO (07:29)
[2024-07-31] MEDS: HEPARIN 5000 UNITS SC ×3 (07:29→23:11)
[2024-07-31] MEDS: PROTONIX IV 40 MG IV (07:29)
[2024-07-31] MEDS: LR 1000 IV (07:32)
--- NOTE | 2024-07-31 07:35 | W.PN.HOSP.TC ---
Today's Communication/Plan
-
see A/P
Assessment / Plan
Assessment / Plan
A/P:
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
# History of segmental colitis and diverticulitis (followed by GI and CRS outpatient)
status post exlap, sigmoidectomy, take-down of splenic flexure, partial omentectomy, TAP block, creation of end-colostomy, on July 27, 2024
Continue clears, ADAT per CRS
DC further IVF RL
Follow OR wound cultures, currently growing gram negative bacilli
Cont Meropenem to include Pseudomonas coverage
Pain control with prn IV Dilaudid
GI was consulted to determine if pt still needs DESIGN SPECIALIST mesalamine or not- this can be determined outpt
# Persistent leucocytosis, suspect reactive component
UA negative, CXR Small bilateral pleural effusions
Cont Merrem as above
# Sinus tachycardia, resolved
started low dose metoprolol 12.5 mg BID
Monitor HR and BP
# Acute blood loss anemia post-op
Hgb 7.1 on 07/29, s/p 1 unit PRBC transfusion, Hgb improved to 9.1 today
# Recent Suicide attempt
# Recent Benzodiazepine overdose
# Major Depressive Disorder
# History of Acute delirium
Was hospitalized and intubated in the ICU in May 2024
Was an intentional benzo overdose, likely secondary to Major Depression d/o
Intubated for airway protection 06/08
Patient was discharge to a mental health facility at that time
QTc monitoring with SSRI and Zofran
# Hypertension
# Hypertensive urgency
Continue to monitor blood pressure.
Holding DESIGN SPECIALIST BP meds HCTZ, losartan
started low dose metoprolol 12.5 mg BID
# History of left side neck, Lt Shoulder pain arthritis/muscle stiffness
# Iron deficiency anemia
Continue to monitor Hgb
# GERD
DVT prophylaxis: resumed Lovenox SQ
GI Prophylaxis: IV Protonix
Code Status: Full code
DW RN
updated daughter on the phone
Anticipated Discharge: > 48 hours
Subjective/Interval History
-
Date of Service: July 31, 2024
Objective Data
-
Labs:
Laboratory Results
07/31/24 07/31/24
04:42 05:38
WBC Cancelled 11.7 H
Hgb Cancelled 9.1 L
Hct Cancelled 30.2 L
Plt Count Cancelled 339
Sodium 143
Potassium 4.3
Chloride 110 H
Carbon Dioxide 23
BUN 28 H
Creatinine 0.7
Glucose 84
Calcium 8.6
Vital Signs:
Vital Signs
Temp Pulse Resp BP Pulse Ox
36.7 C 125 16 139/83 98
07/31/24 07:26 07/31/24 07:13 07/31/24 07:10 07/31/24 07:13 07/31/24 07:26
I&O
07/30/24 07/31/24 08/01/24
06:59 06:59 06:59
Intake Total 3470 / 3470 2735 / 2735
Output Total 550 / 550 1060 / 1060
Balance 2920 / 2920 1675 / 1675
Review of Systems
-
All other systems: Reviewed and negative
Physical Exam
-
General: Well Developed, Well Nourished, No Apparent Distress, Comfortable, Conversant and Obese
Respiratory: Clear to Auscultation and Non Labored Respirations; Negative Accessory Resp Muscle Use
Cardiac: Regular Rhythm and S1/S2
GI: Soft, Nondistended and Ostomy
Skin: Warm and Dry
Neuro: Awake, Alert and Oriented
Psych: Calm and Intact Judgement/Insight
Data Reviewed
-
Labs: Labs Reviewed by me
--- NOTE | 2024-07-31 08:01 | PTCARENOTE ---
PT AAOX3 offering no co, states her belly feels like it is gurgling . Mid line incision has scant drainage. Pure wick in place. DR Chanel turned O2 off , Pt desat to 86% O2 back on at 1liter now 89-90 %. IV fluid off .
--- NOTE | 2024-07-31 09:17 | WOUNDNOTE ---
WOC RN NOTE: Reviewed chart and notes. Plan is for pouch change and teaching either 07/31 or 08/01. Spoke to Daughter Rangel who would like to be available for ostomy teaching. Plan is for Rangel to meet with ostomy nurse 11 am on 08/01.
--- NOTE | 2024-07-31 10:57 | W.PN.CRS1 ---
Today's Communication / Plan
-
full liquids
Assessment/Plan
-
74 yo female with LBO and sigmoid perforation POD# 5 exlap, sigmoidectomy, take-down of splenic flexure, partial omentectomy, TAP block, creation of end-colostomy
Tachycardia noted, vitals otherwise stable
WBC 11.7 from 14.5
Mild BRIAN, improved creatinine now 0.7
07/29- 1 unit PRBCs
--Advance to full liquid diet
--Urinalysis/chest xray/LE dopplers - negative
--Hold lovenox until h/h stabilizes
--C/W protonix to IV for GI ppx
--C/W IVF
--C/W IV abx, OR cx pending prelim with GNB, IV merem for broader coverage
--Trend labs, will order repeat H/H at 1pm
--OOB ambulate/PT consulted
--C/W RAYA drain - will remove prior to d/c
--Multimodal analgesics
--Stoma/wound nurse to follow
Subjective Data
Procedure
07/27/2024- exlap, sigmoidectomy, take-down of splenic flexure, partial omentectomy, TAP block, creation of end-colostomy
Subjective Data
Date of Service: July 31, 2024
Patient states she is not feeling 'that great'. She is still bloated but less so. She denies nausea or vomiting. She is willing to move up on her diet.
Objective Data
-
Vital Signs
Temp Pulse Resp BP Pulse Ox
98.1 F 90 19 141/83 94
07/31/24 07:26 07/31/24 10:00 07/31/24 10:00 07/31/24 10:00 07/31/24 08:00
Intake & Output
07/30/24 07/31/24 08/01/24
06:59 06:59 06:59
Intake Total 3470 / 3470 2735 / 2735
Output Total 550 / 550 1060 / 1060
Balance 2920 / 2920 1675 / 1675
Intake:
Oral fluids 720 / 720 410 / 410
IV fluids (Total) 2500 / 2500 2325 / 2325
Blood Product Amount Infused ( 250 / 250
mL)
Packed Rbc Leukoreduced Unit 250 / 250
[id number]
Output:
Liquid stool amount 150 / 150 60 / 60
Colostomy 150 / 150 60 / 60
Urine, Voided 400 / 400 1000 / 1000
Lab Results
07/31/24 05:38
07/31/24 04:42
Physical Exam
-
General: No Acute Distress and AOx3
Abdomen: Soft, Distended (Mild, improving) and Non Tender
Skin: Warm and Dry
Wound: Dressing Changed and Other (Colostomy warm and pink with mild amount of stool in the bag)
--- NOTE | 2024-07-31 11:35 | PTCARENOTE ---
Report to [address] [place] [address]
[2024-07-31] MEDS: TYLENOL PO (11:43)
--- NOTE | 2024-07-31 11:48 | PTCARENOTE ---
LM on daughter phone re pt moving to [id number]
--- NOTE | 2024-07-31 13:28 | PTCARENOTE ---
Pt arrived to [facility] from [facility]. Pt transferred from stretcher to bed. Pt AAOx3, on 2L NC satting 94%, purewick in place L colostomy red and budded with small amount of brown stool, midline incision saturated and leaking from bottom of dressing. PA-
Armando notified via TT, resin remover to come and change dressing. Pt L knee with brace in place. Pt oriented to call bolivar and room, bed locked and in lowest position, call bolivar within reach.
--- NOTE | 2024-07-31 14:47 | WOUNDNOTE ---
[facility] RN NOTE: CJ Villar TT this RN requesting midline dressing change and pouch change today. Midline dressing removed with brownish drainage, no odor. The brownish areas/drainage appear to be from midline dressing. A picture of midline TT
to CJ and plan is for Dr. Matthew to assess patients midline. Stoma is pink and budded. Peristomal skin intact. Pouch changed with Denise barrier # [id number] and pouch # [id number]. This technical report writer offered reviewing opening and closing pouch, but patient said
she was too tired today. Daughter was called and made aware that pouch was changed today so she did not need to come in tomorrow. [facility] RN team to contact daughter prior to next pouch change. Information on ostomy care at bedside. Plan is for SNF. RN
Vani given update.
[2024-07-31] MEDS: ANCEF 5 IV ×2 (16:33→23:10)
[2024-07-31] MEDS: STERILE WATER FOR INJECTION IV ×2 (16:42→22:51)
--- NOTE | 2024-07-31 17:28 | CM ---
Addendum entered by Laisha Diaz RN 07/31/24 17:38:
Seen by ostomy nurse.
Original Note:
Patient with Hx recent suicide attempt/overdose with hospitalization [facility] with Dx bowel obstruction, Sigmoid Colon Perforation s/p ex lap/sigmoidectomy/creation of end-colostomy, persistent leucocytosis, anemia, HTN. O2 2L. Full liquids.
Receiving IV Abx. PT 07/30 recommends skilled rehab. OT 07/31 recommends skilled rehab. Per nurse assessment; anxious, forgetful.
Attempted to meet with patient who was unavailable.
Patient would require Level II Assessment if SNF is needed for Rehab.
Plan follow up with patient & daughter re; SNF for rehab.
[2024-07-31] MEDS: ULTRAM 50 MG PO (20:59)
[2024-07-31] MEDS: FLAGYL 500 MG PO (23:10)
[2024-07-31] MEDS: FLUSH (NSS) 2 FLUSH IV (23:11)
[2024-08-01] VITALS (7 sets, daily range): BP systolic 148–191; BP diastolic 80–108; PULSE 97; BMI 38.0
[2024-08-01] MEDS: TYLENOL PO (05:12)
[2024-08-01 06:35] LABS: % Basophils 0.2 % (0-2); % Eosinophils 1.7 % (0-6); % Immature Granulocytes 1.2 % (0-0.5); % Lymphocytes 8.1 % (20.5-51.1); % Monocytes 8.2 % (1.7-9.3); % Neutrophils 80.6 % (42.2-75.2); Absolute Eosinophils 0.2 10^3/uL (0-0.7); Absolute Immature Granulocytes 0.1 10^3/uL (0-0.05); Absolute Lymphocytes 0.7 10^3/uL (1.2-3.4); Absolute Monocytes 0.8 10^3/uL (0.1-0.6); Absolute Neutrophils 7.4 10^3/uL (1.4-6.5); Hematocrit 27.7 % (37.0-47.0); Hemoglobin 8.7 g/dL (12.0-16.0); Mean Corp Hgb Conc. 31.4 g/dL (33.0-37.0); Mean Corpuscular Hgb 29.4 pg (27.0-31.0); Mean Corpuscular Volume 93.6 fL (81.0-99.0); Mean Platelet Volume 9.3 fL (7.4-10.4); Nucleated Red Blood Cells % 0 %; Platelet Count 369 10^3/uL (130-400); Red Blood Cell Count 2.96 10^6/uL (4.20-5.40); Red Cell Dist. Width 14.6 % (11.5-14.5); White Blood Cell Count 9.2 10^3/uL (4.8-10.8)
[2024-08-01 07:12] LABS: Blood Urea Nitrogen 19 mg/dl (7-17); Calcium 8.7 mg/dl (8.4-10.2); Carbon Dioxide 30 mmol/L (22-30); Chloride 108 mmol/L (98-107); Estimated Creatinine Clearance 71 ml/min; Glucose 91 mg/dl (70-99); Magnesium 1.7 mg/dl (1.6-2.3); Potassium 3.5 mmol/L (3.5-5.1); Sodium 144 mmol/L (135-145); eGFR > 60.00
[2024-08-01] MEDS: LOPRESSOR 12.5 MG PO ×2 (08:34→21:23)
[2024-08-01] MEDS: ANCEF 5 IV ×2 (08:35→15:55)
[2024-08-01] MEDS: LEXAPRO 20 MG PO (08:35)
[2024-08-01] MEDS: HEPARIN 5000 UNITS SC ×2 (08:35→15:56)
[2024-08-01] MEDS: FLAGYL 500 MG PO ×2 (08:35→15:56)
[2024-08-01] MEDS: PROTONIX IV 40 MG IV (08:36)
[2024-08-01] MEDS: KCL 270 MEQ IV (08:36)
[2024-08-01] MEDS: NSS (PRESERVATIVE FREE) 10 ML IV (08:36)
[2024-08-01] MEDS: TYLENOL 650 MG PO ×4 (08:37→21:22)
--- NOTE | 2024-08-01 08:45 | W.PN.CRS1 ---
Today's Communication / Plan
-
as below
Assessment/Plan
-
74-year-old female with PMH of GERD, HTN, RANJIT, OA, recurrent diverticulitis (admitted at [place] in April 2023 for colitis, possible diverticulitis versus ischemic colitis; underwent a colonoscopy July [address] Seo showing significant
stenosis from 18 to 30 cm concerning more for SCAD versus diverticular stricture) who presents today for 1 to 2 weeks of worsening abdominal pain and bloating. In the ED her WBC was 4.0, Cr 1.1, afebrile, HR in the 100s to 130s. A CT scan showed a
large bowel obstruction from a sigmoid stricture, less likely a mass or inflammation. Her transverse colon is dilated up to 8 cm, her cecum is not dilated.
POD 6 Rose's, identified punctate perf within sigmoid, sent cultures
AFVSS
WBC WBC 9.2 from 11.7, Hb 8.7 from 9.1, CR 0.7
� Advance to regular diet
�Continue IV ancef/flgyl; Cx�ecoli (patient has h/o PSA)
� Continue pain control with Tylenol, tramadol, Dilaudid as needed
� Continue DVT PPx; switched to SQH due to mild BRIAN
-s/p PRBC x 1 on 07/29
�Mild BRIAN, nonoliguric, resolved
-strict I/os
�Appreciate WOCN
�Appreciate PT; recommend discharge to rehab when ready
� Appreciate hospitalist
Subjective Data
Procedure
07/27/2024- exlap, sigmoidectomy, take-down of splenic flexure, partial omentectomy, TAP block, creation of end-colostomy
Subjective Data
Date of Service: August 01, 2024
No overnight events. Feeling better than yesterday
Pain controlled.
Denies nausea/vomiting. Tolerating diet.
+ Ostomy function +voiding
Objective Data
-
Vital Signs
Temp Pulse Resp BP Pulse Ox
98.7 F 70 16 182/87 96
08/01/24 07:00 08/01/24 07:00 08/01/24 07:00 08/01/24 07:00 08/01/24 07:00
Intake & Output
07/31/24 08/01/24 08/02/24
06:59 06:59 06:59
Intake Total 2735 / 2735 480 / 480
Output Total 1060 / 1060 600 / 600 600 / 600
Balance 1675 / 1675 -600 / -600 -120 / -120
Intake:
Oral fluids 410 / 410 480 / 480
IV fluids (Total) 2325 / 2325
Output:
Liquid stool amount 60 / 60 100 / 100
Colostomy 60 / 60 100 / 100
Urine, Voided 1000 / 1000 500 / 500 600 / 600
Lab Results
08/01/24 05:31
08/01/24 05:31
Physical Exam
-
General: No Acute Distress and AOx3
HEENT: Grossly Normal
Abdomen: Soft, Distended (Minimally distended), Tender (Appropriately tender near midline incision), No Guarding, No Rebound and Other (Ostomy pink, slightly edematous, productive of Brown stool)
Skin: Warm and Dry
Wound: No Signs of Infection, Dressing Changed (Removed half of the Telfa andres), No Skin Erythema and Other (Purulent drainage)
[2024-08-01] MEDS: MAGNESIUM SULFATE 100 IV (08:46)
[2024-08-01] MEDS: ProAIR HFA INHALER 2 PUFF INH (09:13)
[2024-08-01] MEDS: ULTRAM 50 MG PO (11:41)
--- NOTE | 2024-08-01 11:49 | W.PN.HOSP.TC ---
Today's Communication/Plan
-
see A/P
Assessment / Plan
Assessment / Plan
A/P:
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
# History of segmental colitis and diverticulitis (followed by GI and CRS outpatient)
status post exlap, sigmoidectomy, take-down of splenic flexure, partial omentectomy, TAP block, creation of end-colostomy, on July 27, 2024
diet advanced to regular per CRS
OR wound cultures grew pansensitive E coli
Meropenem -> Ancef with PO flagyl -> DC on Keflex and Flagyl
Pain control with prn IV Dilaudid
GI was consulted to determine if pt still needs SENIOR CONSTRUCTION MANAGER mesalamine or not- this can be determined outpt
# Persistent leucocytosis, suspect reactive component, resolved
UA negative, CXR Small bilateral pleural effusions
# Sinus tachycardia, resolved
started low dose metoprolol 12.5 mg BID
Monitor HR and BP
# Acute blood loss anemia post-op
Hgb 7.1 on 07/29, s/p 1 unit PRBC transfusion, Hgb improved, today at 8.7
# hypokalemia
replete lyte
# Hypertension
# Hypertensive urgency
Continue to monitor blood pressure.
started low dose metoprolol 12.5 mg BID
resume SENIOR CONSTRUCTION MANAGER losartan at reduced dose at 50 mg daily
hold SENIOR CONSTRUCTION MANAGER HCTZ
# Recent Suicide attempt
# Recent Benzodiazepine overdose
# Major Depressive Disorder
# History of Acute delirium
Was hospitalized and intubated in the ICU in May 2024
Was an intentional benzo overdose, likely secondary to Major Depression d/o
Intubated for airway protection 06/08
Patient was discharge to a mental health facility at that time
QTc monitoring with SSRI and Zofran
# History of left side neck, Lt Shoulder pain arthritis/muscle stiffness
# Iron deficiency anemia
Continue to monitor Hgb
# GERD
DVT prophylaxis: HSQ
GI Prophylaxis: IV Protonix
Code Status: Full code
Dispo: SNF, anticipate SNF days 30 or less
DW RN
DW CM
updated daughter on the phone
Anticipated Discharge: Within 24 hours
Subjective/Interval History
-
Date of Service: August 01, 2024
Objective Data
-
Labs:
Laboratory Results
08/01/24
05:31
WBC 9.2
Hgb 8.7 L
Hct 27.7 L
Plt Count 369
Sodium 144
Potassium 3.5
Chloride 108 H
Carbon Dioxide 30
BUN 19 H
Creatinine 0.7
Glucose 91
Calcium 8.7
Vital Signs:
Vital Signs
Temp Pulse Resp BP Pulse Ox
37.1 C 70 16 182/87 96
08/01/24 07:00 08/01/24 09:20 08/01/24 09:20 08/01/24 07:00 08/01/24 09:20
I&O
07/31/24 08/01/24 08/02/24
06:59 06:59 06:59
Intake Total 2735 / 2735 480 / 480
Output Total 1060 / 1060 600 / 600 725 / 725
Balance 1675 / 1675 -600 / -600 -245 / -245
--- NOTE | 2024-08-01 12:39 | CM ---
Case management following for discharge planning
Chart reviewed
Discussed SNF placement with pt and her daughter Rangel
Both prefer [facility] - daughter is employed there
Referral sent in [facility]
Will need auth when accepted - will need updated PT/OT eval
Plan - anticipate [facility] when bed obtained
[2024-08-01] MEDS: COZAAR 50 MG PO (12:43)
--- NOTE | 2024-08-01 15:38 | WOUNDNOTE ---
WOC RN note: Received verbal permission from patient to order Denise Secure Start Kit. Kit ordered by this sports book writer and will be sent to patients home.
[2024-08-01] MEDS: XOPENEX 1.25 MG INHALANT SOLUTION INH (19:58)
--- NOTE | 2024-08-01 20:25 | PTCARENOTE ---
Called into room by patient's family members who stated pt. was wheezing and coughing up phlegm. Pt. found slid down in bed, repositioned, and assessed - see worklist. House PROPULSION MOTOR AND GENERATOR REPAIRER contacted and stat breathing tx ordered. Coarse lung sounds and wheezing
resolved s/p tx. IS reviewed and encouraged.
[2024-08-02] MEDS: HEPARIN 5000 UNITS SC ×2 (00:22→08:52)
[2024-08-02] MEDS: ANCEF 5 IV ×2 (00:23→08:50)
[2024-08-02] MEDS: FLAGYL 500 MG PO ×2 (00:23→08:52)
[2024-08-02] MEDS: TYLENOL 650 MG PO ×3 (00:23→12:11)
[2024-08-02] MEDS: APRESOLINE 10 MG IV ×2 (00:24→05:35)
[2024-08-02] MEDS: FLUSH (NSS) 3 FLUSH IV (00:27)
[2024-08-02] MEDS: ULTRAM PO (02:31)
[2024-08-02] MEDS: DILAUDID 0.5 MG IV ×2 (02:33→07:18)
[2024-08-02] MEDS: FLUSH (NSS) 2 FLUSH IV ×2 (02:33→07:18)
[2024-08-02 03:08] VITALS: BP 150/110
[2024-08-02 03:27] VITALS: BP 169/93
[2024-08-02] MEDS: TYLENOL PO (04:59)
[2024-08-02] MEDS: ULTRAM 50 MG PO (05:35)
[2024-08-02 06:00] VITALS: BMI 37.1
[2024-08-02 07:05] VITALS: BP 186/98
[2024-08-02 08:48] LABS: % Basophils 0.1 % (0-2); % Eosinophils 0.4 % (0-6); % Lymphocytes 5.2 % (20.5-51.1); % Monocytes 5.9 % (1.7-9.3); % Neutrophils 86.4 % (42.2-75.2); Absolute Immature Granulocytes 0.2 10^3/uL (0-0.05); Absolute Lymphocytes 0.6 10^3/uL (1.2-3.4); Absolute Monocytes 0.7 10^3/uL (0.1-0.6); Absolute Neutrophils 9.5 10^3/uL (1.4-6.5); Hematocrit 29.1 % (37.0-47.0); Hemoglobin 9.3 g/dL (12.0-16.0); Mean Corpuscular Hgb 30.1 pg (27.0-31.0); Mean Corpuscular Volume 94.2 fL (81.0-99.0); Mean Platelet Volume 9.5 fL (7.4-10.4); Nucleated Red Blood Cells % 0 %; Platelet Count 377 10^3/uL (130-400); Red Blood Cell Count 3.09 10^6/uL (4.20-5.40); Red Cell Dist. Width 14.6 % (11.5-14.5)
--- NOTE | 2024-08-02 08:50 | WOUNDNOTE ---
WOC RN note: t/c Spoke with Rangel, patient's daughter who stated her mother is being transferred to the SNF today where she works and she stated she did not need to meet with the ostomy nurse. Ildefonsoprabha stated she knows how to change an ostomy appliance
and will be there when the SNF nurse changes her appliance.
[2024-08-02] MEDS: COZAAR 100 MG PO (08:52)
[2024-08-02] MEDS: PROTONIX IV 40 MG IV (08:55)
[2024-08-02] MEDS: LEXAPRO 20 MG PO (08:55)
[2024-08-02] MEDS: NSS (PRESERVATIVE FREE) 10 ML IV (08:56)
[2024-08-02] MEDS: LOPRESSOR 12.5 MG PO (08:57)
[2024-08-02 09:18] LABS: Blood Urea Nitrogen 12 mg/dl (7-17); Calcium 9.1 mg/dl (8.4-10.2); Carbon Dioxide 33 mmol/L (22-30); Chloride 101 mmol/L (98-107); Estimated Creatinine Clearance 82 ml/min; Glucose 105 mg/dl (70-99); Magnesium 1.5 mg/dl (1.6-2.3); Potassium 3.7 mmol/L (3.5-5.1); Sodium 147 mmol/L (135-145); eGFR > 60.00
--- NOTE | 2024-08-02 09:31 | W.PN.CRS1 ---
Today's Communication / Plan
-
pain management
dispo planning
Assessment/Plan
-
74-year-old female with PMH of GERD, HTN, RANJIT, OA, recurrent diverticulitis (admitted at [place] in April 2023 for colitis, possible diverticulitis versus ischemic colitis; underwent a colonoscopy July [address] Seo showing significant
stenosis from 18 to 30 cm concerning more for SCAD versus diverticular stricture) who presents today for 1 to 2 weeks of worsening abdominal pain and bloating. In the ED her WBC was 4.0, Cr 1.1, afebrile, HR in the 100s to 130s. A CT scan showed a
large bowel obstruction from a sigmoid stricture, less likely a mass or inflammation. Her transverse colon is dilated up to 8 cm, her cecum is not dilated.
POD 6 Rose's, identified punctate perf within sigmoid, sent cultures
AFVSS
WBC WBC 11.0 from 9.2, Hb 9.3 from 8.7
� Continue regular diet
� Continue IV ancef/flgyl; Cx�ecoli (patient has h/o PSA)
� Continue pain control with Tylenol, d/c tramadol, Dilaudid as needed, will add oxycodone
� Continue DVT PPx; switched to SQH due to mild BRIAN
-s/p PRBC x 1 on 07/29
�Mild BRIAN, nonoliguric, resolved
-strict I/os
�Appreciate WOCN - will order daily dressing changes by RN
�Appreciate PT; recommend discharge to rehab when ready
� Appreciate hospitalist
Subjective Data
Procedure
07/27/2024- exlap, sigmoidectomy, take-down of splenic flexure, partial omentectomy, TAP block, creation of end-colostomy
Subjective Data
Date of Service: August 02, 2024
Patient states she has abdominal pain. She does not feel bloated. She has no nausea or vomiting. She is tolerating a diet.
Objective Data
-
Vital Signs
Temp Pulse Resp BP Pulse Ox
98.3 F 100 18 186/98 95
08/02/24 07:05 08/02/24 07:05 08/02/24 07:05 08/02/24 07:05 08/02/24 07:05
Intake & Output
08/01/24 08/02/24 08/03/24
06:59 06:59 06:59
Intake Total 1800 / 1800
Output Total 600 / 600 1825 / 1825
Balance -600 / -600 -25 / -25
Intake:
Oral fluids 1800 / 1800
Output:
Liquid stool amount 100 / 100 125 / 125
Colostomy 100 / 100 125 / 125
Urine, Voided 500 / 500 1700 / 1700
Other:
How many times incontinent 3
SATURATED amount urine
Lab Results
08/02/24 08:15
08/02/24 08:15
Physical Exam
-
General: No Acute Distress and AOx3
Abdomen: Soft, Non Distended and Non Tender
Skin: Warm and Dry
--- NOTE | 2024-08-02 10:05 | W.PN.HOSP.TC ---
Addendum entered and electronically signed by Ignacia Chanel MD 08/02/24 12:52:
total DC time 36 min
Original Note:
Today's Communication/Plan
-
pending SNF
Assessment / Plan
Assessment / Plan
A/P:
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
# History of segmental colitis and diverticulitis (followed by GI and CRS outpatient)
status post exlap, sigmoidectomy, take-down of splenic flexure, partial omentectomy, TAP block, creation of end-colostomy, on July 27, 2024
diet advanced to regular per CRS
OR wound cultures grew pansensitive E coli
Meropenem -> Ancef with PO flagyl -> plan to DC on Keflex and Flagyl
Pain control with prn IV Dilaudid
GI was consulted to determine if pt still needs [employer] mesalamine or not- this can be determined outpt
# Persistent leucocytosis, suspect reactive component, resolved
UA negative, CXR Small bilateral pleural effusions
# Sinus tachycardia, resolved
started low dose metoprolol 12.5 mg BID
Monitor HR and BP
# Acute blood loss anemia post-op
Hgb 7.1 on 07/29, s/p 1 unit PRBC transfusion, Hgb improved, today at 9.3
# hypokalemia
repleted lyte
# Hypertension
# Hypertensive urgency
Continue to monitor blood pressure.
started low dose metoprolol 12.5 mg BID
resume [employer] losartan back at 100 mg daily
hold DIESEL S[employer]PER[employer] HCTZ
# Recent Suicide attempt
# Recent Benzodiazepine overdose
# Major Depressive Disorder
# History of Acute delirium
Was hospitalized and intubated in the ICU in May 2024
Was an intentional benzo overdose, likely secondary to Major Depression d/o
Intubated for airway protection 06/08
Patient was discharge to a mental health facility at that time
QTc monitoring with SSRI and Zofran
# History of left side neck, Lt Shoulder pain arthritis/muscle stiffness
# Iron deficiency anemia
Continue to monitor Hgb
# GERD
DVT prophylaxis: HSQ
GI Prophylaxis: IV Protonix
Code Status: Full code
Dispo: SNF, anticipate SNF days 30 or less
Anticipated Discharge: 24 - 48 hours
Subjective/Interval History
-
Date of Service: August 02, 2024
Objective Data
-
Labs:
Laboratory Results
08/02/24
08:15
WBC 11.0 H
Hgb 9.3 L
Hct 29.1 L
Plt Count 377
Sodium 147 H
Potassium 3.7
Chloride 101
Carbon Dioxide 33 H
BUN 12
Creatinine 0.6
Glucose 105 H
Calcium 9.1
Vital Signs:
Vital Signs
Temp Pulse Resp BP Pulse Ox
36.8 C 100 18 186/98 95
08/02/24 07:05 08/02/24 07:05 08/02/24 07:05 08/02/24 07:05 08/02/24 07:05
I&O
08/01/24 08/02/24 08/03/24
06:59 06:59 06:59
Intake Total 1800 / 1800
Output Total 600 / 600 1825 / 1825
Balance -600 / -600 -25 / -25
Review of Systems
-
All other systems: Reviewed and negative
Physical Exam
-
General: Well Developed, Well Nourished, No Apparent Distress, Comfortable, Conversant and Obese
Respiratory: Clear to Auscultation and Non Labored Respirations; Negative Accessory Resp Muscle Use
Cardiac: Regular Rhythm and S1/S2
GI: Soft, Nondistended and Ostomy
Skin: Warm and Dry
Neuro: Awake, Alert and Oriented
Psych: Calm and Intact Judgement/Insight
Data Reviewed
-
Labs: Labs Reviewed by me
[2024-08-02 10:30] VITALS: BP 139/73
--- NOTE | 2024-08-02 11:00 | CM ---
Addendum entered by Malorie Harris 08/02/24 11:44:
Transport at 3:30PM - facility and pts daughter Rangel aware
Original Note:
Pt medically ready for discharge to SNF - [facility]
Called [facility] spoke with Marianela
Reviewed clinical information
Approved for 5 days - NRD 08/06/2024 - [phone]
Auth # - [id number]
Ambulance auth - [id number] - [facility]
Plan - transfer to [facility]
R - [phone] - ask for [facility]
f - [phone]
[2024-08-02] MEDS: PREVNAR 20 0.5 ML IM (11:28)
--- NOTE | 2024-08-02 11:37 | WOUNDNOTE ---
[facility] RN note: Reviewed chart, plan is for discharge to SNF today. Ostomy orders in discharge instructions. Ostomy instructions, information and supplies in room and should transport to SNF. Colostomy appliance last changed 07/31 and is intact without
leaking noted. RN Ade given update and patient states understanding of plan.
--- NOTE | 2024-08-02 12:03 | W.DCSUMMARY ---
Discharge Summary
Discharge Data
Date of Admission: 07/26/24
Date of Discharge: 08/02/24
-
Pending Results: No
Hospital Course
Principal Diagnosis:
Colonic Stricture with Large Bowel Obstruction and Sigmoid Colon Perforation
Hypertensive urgency
Chronic Diagnoses:�
History of segmental colitis and diverticulitis (followed by GI and CRS outpatient)
Hypertension
Recent Suicide attempt/Recent Benzodiazepine overdose
Major Depressive Disorder
History of Acute delirium
History of left side neck, Lt Shoulder pain arthritis/muscle stiffness
Iron deficiency anemia
GERD
Consultations:�
Colorectal surgery
Procedures:�
Ex-lap, sigmoidectomy, take-down of splenic flexure, partial omentectomy, TAP block, creation of end-colostomy, on July 27, 2024
Clinical course:�
This is a 74-year-old female, with past medical history as stated above, who presented with severe abdominal pain.
Problem 1:
Colonic Stricture with Large Bowel Obstruction and Sigmoid Colon Perforation.
She underwent stat exlap, sigmoidectomy, take-down of splenic flexure, partial omentectomy, TAP block, and creation of end-colostomy on July 27, 2024 by CRS service.
Her wound culture grew pansensitive E. coli.
She initially received meropenem, and this was later changed to Ancef with Flagyl. She was discharged with Keflex and Flagyl to continue for 5 more days.
Her diet was slowly advanced, and she tolerated regular diet prior to discharge.
Problem 2:
Sinus tachycardia, resolved.
She was started with low dose metoprolol 12.5 mg BID during her hospital stay, and she can continue this following discharge.
Problem 3:
Acute blood loss anemia post-op.
She received 1 unit PRBC transfusion, and her hemoglobin improved. Her hemoglobin was at 9.3 on the day of discharge.
Problem 4:
Hypertension with Hypertensive urgency.
She can continue with her prior to admission losartan at 100 mg daily, and newly added metoprolol 12.5 mg twice daily.
Her prior to admission hydrochlorothiazide was discontinued.
Her blood pressure was stable prior to discharge.
As for the rest of her medical problems, they were stable during her hospital stay.
Discharge Plan
-
Patient Disposition: Shelter/SNF
Discharge Diagnosis/Procedures: Colonic Stricture with Large Bowel Obstruction and Sigmoid Colon Perforation status post exlap, sigmoidectomy, take-down of splenic flexure, partial omentectomy, creation of end-colostomy on July 27, 2024;
Acute blood loss anemia post-op (resolved after 1 unit transfusion);
Sinus tachycardia (resolved);
Hypertensive urgency
Condition: Fair
Diet: As tolerated
Activity: As tolerated
Driving Restrictions: Not until seen by your Dr
Blood Work: CBC, BMP in 1 week with your PCP
Activity Restrictions/Additional Instructions:
Colostomy Appliances- [place] barrier # [id number] and pouch # [id number].
Call supply [facility] (list in folder provided) for monthly Ostomy supplies after discharge (ask VN to order supplies while on service).
Follow up with surgeon.
Call [facility] RN nurse for ostomy pouching concerns or leakage problems [phone] or [phone] or [phone].
Check with your GI doctor if you still need to continue to take Mesalamine.
Wean O2 as tolerated at SNF
Referrals:
Debo Jimenez MD [Family Provider] - in less than 1 week
Tony Sheldon MD [Active] - in two weeks
Additional Discharge Medication Instructions: You were started with Lopressor 12.5 mg BID for sinus tachycardia.
Continue losartan at 100 mg daily.
Stop hydrochlorothiazide.
Continue antibiotics Keflex and Flagyl for 5 more days.
Prescriptions:
New
metoprolol tartrate 25 mg Tablet
12.5 mg PO BID Qty: 60 0RF
cephalexin 500 mg capsule
500 mg PO Q12H 5 Days Qty: 10 0RF
metronidazole 500 mg tablet
500 mg PO BID 5 Days Qty: 10 0RF
oxycodone 5 mg Tablet
5 mg PO Q4HPRN PRN (Reason: moderate pain) Qty: 7 0RF
Continued
pantoprazole 40 mg Tablet,Delayed Release (Dr/Ec)
40 mg PO DAILY Qty: 30 0RF
mesalamine 400 mg capsule (with del rel tablets)
800 mg PO TID
albuterol sulfate 90 mcg/actuation Hfa Aerosol Inhaler
2 puff INHALATION R Q4HPRN PRN (Reason: sob)
losartan 100 mg Tablet
100 mg PO DAILY
magnesium oxide 250 mg magnesium Tablet
250 mg PO DAILY
escitalopram oxalate 20 mg Tablet
20 mg PO DAILY
Centrum Silver Women 8 mg iron-400 mcg-50 mcg Tablet
1 tab PO DAILY
meloxicam 15 mg tablet
15 mg PO DAILY
levalbuterol HCl 0.31 mg/3 mL Solution For Nebulization
INHALATION
Discontinued
hydrochlorothiazide 25 mg Tablet
25 mg PO DAILY
ascorbic acid (vitamin C) [Vitamin C] 500 mg Tablet
500 mg PO DAILY
vitamin E 268 mg (400 unit) Capsule
268 mg PO DAILY
Discharge Orders:
Discharge Patient (As Directed); Ordered 08/02/24
Ordered By: Ignacia Chanel
Discharge Date and Time
Print Language: RUSSIAN
[2024-08-02] MEDS: ROXICODONE 10 MG PO (14:40)
[2024-08-02 15:05] VITALS: BP 159/86
== END 2024-08-02 16:10 | DRG 329 ==
LOC: 2 SOUTH 19:15
PROVIDERS: Physician Assistant; ADMITTING PHYSICIAN Hospitalist; ATTENDING PHYSICIAN Internal Medicine; CONSULT PHYSICIAN Surgery; EMERGENCY PHYSICIAN Student in an Organized Health Care Education/Training Program; FAMILY PHYSICIAN Internal Medicine
PROC: 0D1M0Z4 Bypass Descending Colon to Cutaneous, Open Approach (ICD-10-PCS; 2024-07-26)
PROC: 0DBU0ZZ Excision of Omentum, Open Approach (ICD-10-PCS; 2024-07-26)
PROC: 0DTN0ZZ Resection of Sigmoid Colon, Open Approach (ICD-10-PCS; 2024-07-26)
DX: K56.600 Partial intestinal obstruction, unspecified as to cause (principal); K63.1 Perforation of intestine (nontraumatic); D62 Acute posthemorrhagic anemia; R18.8 Other ascites; F32.9 Major depressive disorder, single episode, unspecified; I10 Essential (primary) hypertension; I16.0 Hypertensive urgency; D50.9 Iron deficiency anemia, unspecified; K66.0 Peritoneal adhesions (postprocedural) (postinfection); B96.20 Unspecified Escherichia coli [E. coli] as the cause of diseases classified elsewhere; K21.9 Gastro-esophageal reflux disease without esophagitis; M19.90 Unspecified osteoarthritis, unspecified site; M25.512 Pain in left shoulder; M54.2 Cervicalgia; R00.0 Tachycardia, unspecified; Z79.899 Other long term (current) drug therapy; Z91.51 Personal history of suicidal behavior; Z87.19 Personal history of other diseases of the digestive system; Z88.0 Allergy status to penicillin; Z80.0 Family history of malignant neoplasm of digestive organs
CPT/HCPCS: 88307; 71045; 71046; 74177; 80048; 80053; 81003; 82040; 83605; 83690; 83735; 84100; 85014; 85018; 85025; 85610; 85730; 86850; 86900; 86901; 86920; 87070; 87075; 87077; 87186; 87205; 90677; 93005; 93970; 94640; 97116; 97163; 97167; 97530; C1776; G0009; J1335; P9016; Q9967

== ENCOUNTER 2024-12-26 06:01 | Inpatient (IN) | payer OTHER, SELFPAY ==
[2024-12-13 11:01] LABS: Hematocrit 38.4 % (37.0-47.0); Hemoglobin 12.2 g/dL (12.0-16.0); Mean Corp Hgb Conc. 31.8 g/dL (33.0-37.0); Mean Corpuscular Hgb 30.1 pg (27.0-31.0); Mean Corpuscular Volume 94.8 fL (81.0-99.0); Mean Platelet Volume 9.5 fL (7.4-10.4); Platelet Count 284 10^3/uL (130-400); Red Blood Cell Count 4.05 10^6/uL (4.20-5.40); Red Cell Dist. Width 14.6 % (11.5-14.5); White Blood Cell Count 5.8 10^3/uL (4.8-10.8)
[2024-12-13 11:05] LABS: INR 0.91; PT 12.8 Sec (11.4-14.6)
[2024-12-13 11:06] LABS: APTT 27.3 Sec (23.4-35.0)
[2024-12-13 11:34] LABS: ALT (SGPT) 15 U/L (0-35); AST (SGOT) 24 U/L (14-36); Albumin 4.6 g/dl (3.5-5.0); Alkaline Phosphatase 75 U/L (38-126); Blood Urea Nitrogen 38 mg/dl (7-17); Calcium 10.4 mg/dl (8.4-10.2); Carbon Dioxide 31 mmol/L (22-30); Chloride 100 mmol/L (98-107); Glucose 101 mg/dl (70-99); Potassium 4.6 mmol/L (3.5-5.1); Sodium 140 mmol/L (135-145); Total Bilirubin 0.5 mg/dl (0.2-1.3); Total Protein 7.9 g/dl (6.3-8.2); eGFR > 60.00
[2024-12-13 13:47] VITALS: BMI 30.2
[2024-12-26] VITALS (13 sets, daily range): BP systolic 117–169; BP diastolic 65–80; BMI 30.2; BMI 32.2
[2024-12-26] MEDS: NORMOSOL-R/PLASMALYTE-A 1000 IV ×2 (06:50→20:34)
[2024-12-26] MEDS: TYLENOL 1000 MG PO ×2 (06:59→18:07)
[2024-12-26] MEDS: HEPARIN 5000 UNITS SC (06:59)
[2024-12-26] MEDS: CELEBREX 200 MG PO (06:59)
[2024-12-26] MEDS: ENTEREG 12 MG PO (06:59)
--- NOTE | 2024-12-26 16:41 | W.IMMPOSTOP ---
Addendum entered and electronically signed by Tony Sheldon MD 12/26/24 17:12:
Daughter updated in person
Original Note:
Surgical Immed Post Op Note
-
Primary Surgeon: Tony Sheldon MD
Assisting Surgeon: LUCIA Sanchez, Mike Birmingham MD (performed EEA stapler and flexible sigmoidoscopy)
Pre-op Diagnosis: History of colostomy
Post-op Diagnosis: History of colostomy
Procedure Performed: Robotic colostomy reversal, lysis of adhesions greater than 4 hours, repair of enterotomy, mesenteric angiography with ICG, flexible sigmoidoscopy, laparoscopic tap block; cystoscopy with ureteral stent placement by
Rey (urology)
Anesthesia Type: General
Specimen / Cultures: Colostomy, residual rectosigmoid
Estimated Blood Loss: 50 mL
IVF: 2 L
UOP: 200 mL
Complications: None
Operative Findings: Took down colostomy and excised, secured anvil with handsewn pursestring 3-0 Prolene; placed port cover and insufflated; significant adhesions throughout the abdomen from the small bowel to the abdominal wall; placed LUQ port and
performed laparoscopic lysis of adhesions; placed remainder of ports and continued lysis of adhesions; encountered 1 enterotomy, about 5 mm in size, that was repaired primarily with 3-0 Vicryl Lembert's; cecum extended into the pelvis and was
adherent to the anterior pelvis, uterus, left fallopian tube and rectum; these adhesions were taken down; significant adhesions from the small bowel to the left pelvis and LLQ that were taken down; easily identified bilateral ureters with ICG;
suspended uterus with 2-0 nylon and left ovary with 2-0 Vicryl; mobilized rectum circumferentially; performed flexible sigmoidoscopy and Rose pouch measured about 20 cm in length, but with stenosis of the last few centimeters; unable to pass the
sizers so continued mobilizing the rectum circumferentially; still unable to pass the sizers so mobilized the rectum down to the lower rectum; able to pass the EEA sizers; identified small colotomy in the rectosigmoid portion of the Rose pouch;
transected at the proximal rectum with a green load; checked reach and was not sufficient; mobilized more of the descending colon from the adhesions of the small bowel and from the lateral attachments; reach was now sufficient; performed EEA stapled
anastomosis with Dr. Birmingham handling the stapler; leak test negative, donuts intact x 2, anastomosis intact by flex sigmoidoscopy; injected ICG and both sides of anastomosis well-perfused; oversewed the anterior aspect of the anastomosis with 2-0
Vicryl; robot was undocked; closed RLQ port with 0 Vicryl tie on a suture passer; cleaned up the fascial edges, excised sac and closed anterior fascia with 0 Stratafix; partially closed skin with 2-0 Vicryl pursestring and deep dermal layer; packed
colostomy wound with half-inch packing soaked in Betadine; close port sites in the usual fashion; removed right stent and left left stent and [place] in place
--- NOTE | 2024-12-26 17:06 | OR.RPT ---
Operative Report
Operative Report
DATE OF OPERATION: 12/26/2024
SURGEON: Tony Sheldon MD
PREOPERATIVE DIAGNOSIS: History of colostomy, diverticular stricture
POSTOPERATIVE DIAGNOSIS: History of colostomy, diverticular stricture
OPERATION: Robotic takedown of colostomy, adhesiolysis greater than 4 hours, repair of serosal injury, mesenteric angiography with ICG, flexible sigmoidoscopy, laparoscopic TAP block; cystoscopy and bilateral ureteral stent placement by urology
ASSISTANTS:
1. Mike Birmingham MD (EEA stapler and flexible sigmoidoscopy)
2. LUCIA Sanchez
ANESTHESIA: General
ESTIMATED BLOOD LOSS: 50 mL
IVF: 2.0 L
URINE OUTPUT: 200 mL
FINDINGS:
1. Very extensive adhesions between the small bowel and the anterior abdominal wall requiring extensive lysis of adhesions; one 4 mm serosal injury identified in loop of jejunum, repaired primarily
2. Extensive adhesions between the cecum and the uterus, right ovary and proximal rectum
3. On flexible sigmoidoscopy, Rose pouch measured about 20 cm in length; unable to pass up sizers due to restricted mobility of the rectum requiring mobilization down to the lower rectum
4. Resected residual rectosigmoid and performed intracorporeal EEA stapled anastomosis; donuts intact, well-perfused on ICG, negative leak test, intact on flexible sigmoidoscopy
SPECIMENS:
1. Colostomy
2. Residual rectosigmoid
DRAINS: None
COMPLICATIONS: No immediate complications.
INDICATIONS: The patient is a 74-year-old female who initially presented with a diverticular stricture causing a large bowel obstruction associated with a perforation requiring a Rose's procedure. The patient fully recovered and indicated her
desire for colostomy reversal. The operation was discussed with the patient in detail, including the risks, benefits and alternatives. Risks described included, but not limited to, bleeding, infection, anastomotic leak, damage to nearby structures
(i.e.- ureter, bowel, solid organs), incisional hernia, need for diverting ostomy creation, conversion to open, inability to reverse ostomy, recurrent diverticulitis, and anesthetic risks. The patient understood and agreed to proceed. This was also
discussed with the patient's daughter, who agreed as well.
PROCEDURE IN DETAIL: The patient was taken to the operating room and placed on the operating table in supine position. Sequential compression devices were placed bilaterally. General anesthesia was induced and the patient was intubated without
complication. The patient was placed in lithotomy position with both arms tucked. Urology performed a cystoscopy, placed bilateral ureteral stents, injected each ureter with 2.5mL of ICG and placed a Peraza. The ostomy site was sutured closed with
2-0 Vicryl. The abdomen was prepped and draped in a sterile fashion. A time-out was performed verifying the correct patient, procedure, operative site, positioning, and special equipment. Preoperative antibiotics were given. A marking pen was
used to yovani out the midline.
Using electrocautery, the mucocutaneous junction was divided circumferentially around the colostomy. This was taken down to the level of the fascia with meticulous dissection in order to prevent injury to the colon. Hemostasis was achieved. I
entered the abdominal cavity and cleared the surrounding area of adhesions using a finger sweep. After the colostomy was completely free from the abdominal wall, the colostomy was assessed and a division site was selected about 1 to 2 cm proximal
to the colostomy closure. A window was created in the mesentery at this point and the mesentery was divided using clamps, Metzenbaum scissors and 0 Vicryl ties. The colon was divided with Bovie electrocautery. The colostomy was passed off as
specimen. A Liz clamp was used to ensure adequate diameter of the colon. A 3-0 Prolene was sutured in a Espinoza fashion around the edge of the colon. The anvil was placed and the pursestring was closed around it. The anvil staple line was
cleared from any intervening mesentery and fat. The anvil and colon was returned to the abdomen. A small Kapil with port cap was placed and a robotic 12 mm port was placed through the port cap. The abdomen was insufflated. The robotic endoscope
was advanced and the abdomen was explored.
There was extensive adhesions noted from the small bowel to the anterior abdominal wall, primarily focused around the midline in the lower quadrants of the abdomen. There were some adhesions in the left upper quadrant and epigastric region. I was
able to place the Alfaro's point port under direct visualization, avoiding injury to any nearby bowel. Using the laparoscopic scissors, the adhesions in the left upper quadrant and epigastric area, as well as along the midline, were filmy and taken
down with sharp dissection. Three more 8mm robotic ports were placed under direct visualization in a diagonal fashion from Alfaro's point to the right lower quadrant, as well as an 8mm assist port in the right lateral mid abdomen, taking care to
avoid injury to the right epigastric vessels. The left upper quadrant port was changed to the air seal port. The patient was placed in 30 degrees Trendelenburg (flat was noted to be at 10 degrees) and 10 degrees [id number]. The robot was
docked from the patient's left side. From the RLQ to Alfaro's point, the instruments introduced were the scissors, camera, bipolar grasper and tip-up grasper, respectively.
I explored the abdomen. There was still extensive adhesions from the small bowel to the right lower quadrant, pelvis and left lower quadrant extending up the left paracolic gutter. These were meticulously taken down to clear the way to the pelvis.
While taking down small bowel from the left lower quadrant, I noticed a small serosal injury about 4 mm in length. I repaired this primarily with two 3-0 Vicryl stitches in a Lembert fashion. Once the small bowel adhesions were freed from these
areas, I cleared the descending colon and mesocolon from nearby small bowel in order to promote reach into the pelvis. I turned my attention to the pelvis and identified the cecum completely overlying the pelvic inlet. With gentle retraction, I
freed the adhesions from the cecum to the anterior pelvis, uterus, right ovary and fallopian tube as well as along the pelvic brim. I freed the terminal ileum from the left ovary. At this point, I encountered a small collection of fluid
immediately adjacent to the left ovary that appeared cloudy, only about 2 to 3 cc. This was likely an ovarian cyst that opened. The fluid was suctioned before it spread beyond the area. I was not concerned for an abscess at this point. After the
pelvic inlet was completely exposed, I suspended the uterus with a 2-0 nylon, passing this extracorporeally in the suprapubic region, through the body of the uterus, and then back out extracorporeally in the same location. The pelvic inlet was more
narrow than anticipated and the left ovary kept falling into the pelvis, making visualization and dissection difficult. Therefore, I used a 2-0 Vicryl to suspend the left ovary out of the pelvis by looping the stitch from the peritoneum of the
right lower quadrant to the serosa of the fallopian tube.
The uterus was densely adherent to the proximal rectum. I used meticulous dissection to free the rectum from the uterus, but the plane was narrow and difficult due to the density of the adhesions. I asked the beauty specialist to place a sizer within the
uterus and retracted superiorly to aid with the dissection. I freed up some more adhesions until I arrived at an area that was difficult to elucidate. I transitioned to the posterior dissection. I entered the presacral plane and retracted the
proximal rectum anteriorly. I dissected down in the presacral plane well beyond the sacral promontory and mobilized the lateral stalks. On firefly, I easily identified the bilateral ureters and kept these at a safe distance from my dissection.
Coming along the left lateral stalk, I encountered a vessel that was directed towards the proximal rectum, consistent with the superior rectal artery. I circumferentially dissected this and ligated it with the vessel sealer. I continued my rectal
mobilization to the anterior plane and easily identified a fatty plane between the rectum and vaginal wall. No injury to the uterus or vaginal wall was appreciated.
I performed a flexible sigmoidoscopy and discovered a few boulders of stool, which I disimpacted digitally. I arrived at the proximal extent of the Cadte's pouch, which was at about 20 cm from the anal verge. The last 3 cm of the Rose's
pouch was mildly stenotic, which would need to be resected prior to passing up the EEA stapler. I attempted to pass up EEA sizers and due to the restricted mobility of the mid rectum, I was unable to pass up the small EEA sizer. I returned to the
robotic console to mobilize the proximal/mid rectum further. I started posteriorly, taking care to avoid violating the presacral plane. I worked my way up the lateral stalks to the anterior plane. I attempted to pass up the EEA sizers once again,
but was unable to pass up the medium EEA sizer. I continued the mobilization of the rectum down to the proximal extent of the lower rectum. At this point, I was able to pass up the EEA sizers. I identified a small colotomy in the rectosigmoid
region of the Rose pouch. I selected my transection point along the proximal rectum distal to this colon injury and distal to the stenotic portion of the Rsoe pouch. I divided the mesorectum at this point. The RLQ incision was upsized to a
12 mm port. I stapled and divided with the 60 mm robotic stapler with a green load.
I checked the reach of the descending colon and it was not quite adequate. Therefore, I continued freeing up the descending colon. With retraction of the anvil, the tethering was clearly due to additional adhesions from the small bowel to the
mesocolon as well as additional lateral attachments. These were freed up. I checked my reach once more and it was now plenty adequate. The operative field was surveyed and hemostasis was ensured. Then, sizers were passed up the rectum to ensure
adequate circumference and length, and now the large EEA sizer easily passed up to the fresh staple line. Dr. Birmingham joined the case and passed the EEA stapler transanally to the staple line. The pin was extended and was connected with the anvil.
After ensuring there was no twist to the mesentery and there was no tension, the EEA stapler was closed for 1 minute and fired. Both donuts were intact. A leak test was performed by filling the pelvis with saline, occluding the proximal lumen and
insufflating with the flexible sigmoidoscope. There was no evidence of leak from the anastomosis. Endoscopically, the anastomosis was intact without evidence of bleeding. The colorectum was desufflated and the flexible sigmoidoscope removed.
Anesthesia injected ICG and the anastomosis was evaluated on firefly. Both the proximal and distal portion of the anastomosis was well-perfused. The anterior aspect of the anastomosis was oversewn with interrupted Lemberts using 2-0 Vicryl's.
The robotic instruments were removed and the robot was undocked. Using laparoscopic visualization, a TAP block was performed using a total of 30 mL of 0.25% Marcaine with epinephrine mixed with dexamethasone and injecting in the transverse
abdominis plane bilaterally. The RLQ port site was closed with a simple interrupted 0 Vicryl using the Julio Christensen. The remaining ports were removed under direct visualization and no bleeding was noted. The colostomy site was closed. First,
the edges of the anterior fascia were cleaned from the subcutaneous fat. I excised the peritonealized portion of the subcutaneous tissue of the colostomy wound. The anterior fascia was closed using an 0 Stratafix suture. The incisions were
irrigated. The skin opening of the colostomy wound was tightened by running a 2-0 Vicryl stitch in a deep dermal pursestring fashion. The wound was then packed with plain packing soaked in Betadine. The remaining 30 cc of 0.25% Marcaine with
epinephrine mixed with dexamethasone were injected around the incisions. The incisions were closed with running subcuticular 4-0 Monocryl and dressed with Dermabond.
At this point, the procedure was complete. The patient was awoken and extubated without complication. The right stent was removed, and the left stent and Peraza were left in place. All needle, sponge and instrument counts were reported as correct.
The patient tolerated the procedure well and was transferred to the recovery room in stable condition with the Peraza in place.
Of note, Mike Birmingham MD and LUCIA Sanchez, facilities assistant, were necessary during this procedure for traction, countertraction, and exploratory purposes. Pavan Mtz was present for the entire duration of the case. Dr. Birmingham was present
for handling the EEA stapler and performing the flexible sigmoidoscopy. I was present for the entire duration of the case.
DICTATED BY: Tony Sheldon MD
[2024-12-26 17:45] LABS: % Basophils 0.1 % (0-2); % Immature Granulocytes 0.3 % (0-0.5); % Lymphocytes 6.1 % (20.5-51.1); % Monocytes 6.9 % (1.7-9.3); % Neutrophils 86.6 % (42.2-75.2); Absolute Lymphocytes 0.6 10^3/uL (1.2-3.4); Absolute Monocytes 0.7 10^3/uL (0.1-0.6); Absolute Neutrophils 8.8 10^3/uL (1.4-6.5); Hematocrit 36.1 % (37.0-47.0); Hemoglobin 11.5 g/dL (12.0-16.0); Mean Corp Hgb Conc. 31.9 g/dL (33.0-37.0); Mean Corpuscular Hgb 31.1 pg (27.0-31.0); Mean Corpuscular Volume 97.6 fL (81.0-99.0); Mean Platelet Volume 8.9 fL (7.4-10.4); Nucleated Red Blood Cells % 0 %; Platelet Count 212 10^3/uL (130-400); Red Cell Dist. Width 14.8 % (11.5-14.5); White Blood Cell Count 10.2 10^3/uL (4.8-10.8)
[2024-12-26 18:23] LABS: Blood Urea Nitrogen 33 mg/dl (7-17); Calcium 8.3 mg/dl (8.4-10.2); Carbon Dioxide 19 mmol/L (22-30); Chloride 103 mmol/L (98-107); Estimated Creatinine Clearance 38 ml/min; Glucose 144 mg/dl (70-99); Sodium 136 mmol/L (135-145); eGFR 47.21
[2024-12-26] MEDS: TORADOL 15 MG IV (22:42)
--- NOTE | 2024-12-26 23:50 | PTCARENOTE ---
Received pt from PACU into room 2124 around 20:00. Pt AAOx3. VSS. Reports no pain. 5 lap sites and colostomy site, CDI. Peraza draining dark red, bloody urine. Fluid-filled blister noted on pt's upper back/lower neck. Normosol @ 75 ml/hr into L hand
IV. See proper documentation for full assessment. Pt asleep, resting comfortably in bed, call bolivar within reach.
[2024-12-27] VITALS (11 sets, daily range): BP systolic 79–134; BP diastolic 40–70; PULSE 88; O2SAT 98; BMI 31.7
[2024-12-27] MEDS: TYLENOL 1000 MG PO ×5 (00:02→23:11)
[2024-12-27] MEDS: TORADOL 15 MG IV ×4 (03:49→21:11)
[2024-12-27] MEDS: NORMOSOL-R/PLASMALYTE-A 1000 IV ×2 (05:08→17:55)
[2024-12-27 05:57] LABS: % Basophils 0.2 % (0-2); % Immature Granulocytes 0.3 % (0-0.5); % Lymphocytes 6.9 % (20.5-51.1); % Neutrophils 85.6 % (42.2-75.2); Absolute Lymphocytes 0.5 10^3/uL (1.2-3.4); Absolute Monocytes 0.5 10^3/uL (0.1-0.6); Absolute Neutrophils 5.6 10^3/uL (1.4-6.5); Hematocrit 31.3 % (37.0-47.0); Hemoglobin 9.9 g/dL (12.0-16.0); Mean Corp Hgb Conc. 31.6 g/dL (33.0-37.0); Mean Corpuscular Hgb 30.4 pg (27.0-31.0); Mean Platelet Volume 9.5 fL (7.4-10.4); Nucleated Red Blood Cells % 0 %; Platelet Count 195 10^3/uL (130-400); Red Blood Cell Count 3.26 10^6/uL (4.20-5.40); Red Cell Dist. Width 14.8 % (11.5-14.5); White Blood Cell Count 6.6 10^3/uL (4.8-10.8)
[2024-12-27 06:19] LABS: Blood Urea Nitrogen 32 mg/dl (7-17); Calcium 7.4 mg/dl (8.4-10.2); Carbon Dioxide 27 mmol/L (22-30); Chloride 102 mmol/L (98-107); Estimated Creatinine Clearance 42 ml/min; Glucose 107 mg/dl (70-99); Potassium 4.3 mmol/L (3.5-5.1); Sodium 140 mmol/L (135-145)
[2024-12-27] MEDS: COZAAR 100 MG PO (09:00)
[2024-12-27] MEDS: ORETIC 25 MG PO (09:01)
[2024-12-27] MEDS: ENTEREG 12 MG PO ×2 (09:01→20:39)
[2024-12-27] MEDS: LEXAPRO 20 MG PO (09:01)
[2024-12-27] MEDS: PROTONIX 40 MG PO (09:01)
--- NOTE | 2024-12-27 09:43 | W.PN.CRS1 ---
Today's Communication / Plan
-
clears
recheck h/h at noon
stent removed
add oxycodone
Assessment/Plan
-
POD#1 Robotic colostomy reversal, lysis of adhesions greater than 4 hours, repair of enterotomy, mesenteric angiography with ICG, flexible sigmoidoscopy, laparoscopic tap block; cystoscopy with ureteral stent placement by Dr. Le (urology)
VS: normal
WBC 6.6, hgb 9.9
creatinine: 1.1 (1.2)
-Advance to clears, remain on IVFS
-Hgb 9.9, which is anemia likely due to dilution and OR losses. Will repeat CBC at noon.
-OOB with PT.
-DVT prophylaxis: TEDS/SCDS in place. Will hold on Lovenox until repeat CBC is resulted.
-Continue zambrano, will check urine output at noon for possible d/c. Ureter stent #2 removed at bedside.
-Pain control: Tylenol/Toradol standing, Dilaudid PRN. Will add oxycodone for breakthrough pain.
-Wound care: dry gauze over incision with paper tape, change daily and PRN
Subjective Data
Procedure
12/26/2024- Robotic colostomy reversal, lysis of adhesions greater than 4 hours, repair of enterotomy, mesenteric angiography with ICG, flexible sigmoidoscopy, laparoscopic tap block; cystoscopy with ureteral stent placement by Dr. Le
(urology)
Subjective Data
Date of Service: December 27, 2024
Patient states she feels well. She has mild pain. She denies nausea or vomiting. She has had no flatus or bowel movements yet.
Objective Data
-
Vital Signs
Temp Pulse Resp BP Pulse Ox
98.2 F 82 14 134/66 99
12/27/24 08:01 12/27/24 09:01 12/27/24 08:01 12/27/24 09:01 12/27/24 08:01
Intake & Output
12/26/24 12/27/24 12/28/24
06:59 06:59 06:59
Intake Total 950 / 950
Output Total 750 / 750
Balance 200 / 200
Intake:
Oral fluids 50 / 50
IV piggybacks 900 / 900
Output:
Urine, Zambrano 750 / 750
Lab Results
12/27/24 05:19
12/27/24 05:19
Physical Exam
-
General: No Acute Distress and AOx3
Abdomen: Soft, Non Distended and Tender (mild around incisions)
Wound: Dressing Changed (wound c/d/i)
Incision: Clear, Dry, Intact
--- NOTE | 2024-12-27 11:29 | CM ---
Addendum entered by Magnolia Lr 12/27/24 11:57:
Daughter decline SNF at this time.
Original Note:
Patient seen at bedside with daughter Paulette
Dx: Robotic colostomy reversal
IA completed
Lives with spouse in split level, 1 step to enter, 6 steps, has stair lift
PLOF: Independent, ambulates with cane
DME: walker, cane, stair lift, shower chair, wheelchair
PT rec SNF - CM to
Will need to obtain auth
PCP: [facility] Ace
Pharmacy: [facility]
PLAN: SNF, CM to discuss options with patient
[2024-12-27 12:39] LABS: Hematocrit 30.5 % (37.0-47.0); Hemoglobin 9.7 g/dL (12.0-16.0); Mean Corp Hgb Conc. 31.8 g/dL (33.0-37.0); Mean Corpuscular Hgb 30.9 pg (27.0-31.0); Mean Corpuscular Volume 97.1 fL (81.0-99.0); Mean Platelet Volume 9.6 fL (7.4-10.4); Platelet Count 221 10^3/uL (130-400); Red Blood Cell Count 3.14 10^6/uL (4.20-5.40); White Blood Cell Count 7.4 10^3/uL (4.8-10.8)
[2024-12-27] MEDS: NSS 1000 IV (13:44)
--- NOTE | 2024-12-27 16:58 | PTCARENOTE ---
pt received to 2S room 2118 from 2N at 1530. pt oriented to room and plan of care. assessment completed as documented. pt offering no c/o pain. VS: 98.8-90-18-150/53. telemetry placed and reading SR in 80's. care ongoing.
[2024-12-27] MEDS: LOVENOX 40 MG SC (17:53)
[2024-12-27 19:15] LABS: Hepatitis C Antibody Negative (Negative)
[2024-12-28] VITALS (7 sets, daily range): BP systolic 121–168; BP diastolic 66–96; PULSE 86; O2SAT 98; BMI 32.2
[2024-12-28] MEDS: TORADOL 15 MG IV ×2 (03:37→23:03)
[2024-12-28] MEDS: NORMOSOL-R/PLASMALYTE-A 1000 IV ×2 (03:40→15:12)
[2024-12-28] MEDS: TYLENOL 1000 MG PO ×4 (05:58→23:06)
[2024-12-28 06:25] LABS: % Basophils 0.4 % (0-2); % Immature Granulocytes 0.3 % (0-0.5); % Lymphocytes 12.9 % (20.5-51.1); % Monocytes 9.6 % (1.7-9.3); % Neutrophils 70.8 % (42.2-75.2); Absolute Eosinophils 0.4 10^3/uL (0-0.7); Absolute Lymphocytes 0.9 10^3/uL (1.2-3.4); Absolute Monocytes 0.7 10^3/uL (0.1-0.6); Hematocrit 29.3 % (37.0-47.0); Mean Corp Hgb Conc. 30.7 g/dL (33.0-37.0); Mean Corpuscular Hgb 30.4 pg (27.0-31.0); Mean Platelet Volume 9.8 fL (7.4-10.4); Nucleated Red Blood Cells % 0 %; Platelet Count 177 10^3/uL (130-400); Red Blood Cell Count 2.96 10^6/uL (4.20-5.40)
[2024-12-28 06:47] LABS: Blood Urea Nitrogen 26 mg/dl (7-17); Calcium 7.1 mg/dl (8.4-10.2); Carbon Dioxide 27 mmol/L (22-30); Chloride 105 mmol/L (98-107); Estimated Creatinine Clearance 51 ml/min; Glucose 78 mg/dl (70-99); Potassium 3.9 mmol/L (3.5-5.1); Sodium 139 mmol/L (135-145); eGFR > 60.00
[2024-12-28] MEDS: PROTONIX 40 MG PO (08:08)
[2024-12-28] MEDS: ENTEREG 12 MG PO ×2 (08:08→21:02)
[2024-12-28] MEDS: HEPARIN 5000 UNITS SC ×3 (08:08→23:05)
[2024-12-28] MEDS: LEXAPRO 20 MG PO (08:08)
[2024-12-28 08:14] LABS: Osmolality Serum 295 mOsm/kg (275-300)
--- NOTE | 2024-12-28 08:38 | W.PN.CRS1 ---
Today's Communication / Plan
-
As below
Assessment/Plan
-
74-year-old female with PMH of GERD, HTN, OA, anxiety, asthma, diverticular stricture s/p Cadet's procedure who presents for elective colostomy reversal
POD 2 robotic colostomy reversal, extensive lysis of adhesions, repair of enterotomy x 1, TAP block, ureteral stents by urology
AFVSS, ABD soft, mildly distended, appropriately tender; port site incisions well-approximated without erythema or drainage, covered in Dermabond; colostomy site packed; remaining ureteral stent removed at bedside
WBC 7.0 from 6.6, Hb 9.0 from 9.9, Cr 0.9 from 1.1, UOP 600 (200 mL for last 12 hours)
�Awaiting return of bowel function, evidence of flatus today
�Continue clears
�Oliguria overnight, creatinine still normal
�Replace Peraza for strict intake/output
�Will send urine studies and obtain renal ultrasound to rule out hydronephrosis
�Continue IV fluids at 100/hr
�Repeat labs for noon
�May need nephrology consult if oliguria does not resolve
� Pain control with Tylenol, Dilaudid as needed; add oxycodone as needed; continue Entereg until discharge
�Holding Toradol for possible BRIAN
�Continue DVT PPx, will switch to SQH due to possible BRIAN
� Encourage OOB/IS
�Continue home meds
Subjective Data
Procedure
12/26/2024- Robotic colostomy reversal, lysis of adhesions greater than 4 hours, repair of enterotomy, mesenteric angiography with ICG, flexible sigmoidoscopy, laparoscopic tap block; cystoscopy with ureteral stent placement by Dr. Le
(urology)
Subjective Data
Date of Service: December 28, 2024
No issues overnight.
Patient denies any nausea or vomiting. Does feel a bit more bloated today.
She is passing flatus consistently, denies any BMs. Her Peraza was removed this morning and has not urinated yet.
Patient is out of bed.
Pain is controlled.
Objective Data
-
Vital Signs
Temp Pulse Resp BP Pulse Ox
99.3 F 84 16 144/69 96
12/28/24 07:58 12/28/24 07:58 12/28/24 07:58 12/28/24 07:58 12/28/24 07:58
Intake & Output
12/27/24 12/28/24 12/29/24
06:59 06:59 06:59
Intake Total 950 / 950 3605 / 3605
Output Total 750 / 750 600 / 600
Balance 200 / 200 3005 / 3005
Intake:
Oral fluids 50 / 50 480 / 480
IV fluids (Total) 3125 / 3125
IV piggybacks 900 / 900
Output:
Urine, Peraza 750 / 750 600 / 600
Lab Results
12/28/24 05:12
12/28/24 05:12
Physical Exam
-
General: No Acute Distress and AOx3
HEENT: Grossly Normal
Abdomen: Soft, Distended (Mildly distended (slightly increased from yesterday, not tympanitic)), Tender (Appropriately tender near incisions), No Guarding and No Rebound
Skin: Warm and Dry
Wound: No Signs of Infection, No Skin Erythema and Other (Incisions well-approximated without erythema or drainage, covered in Dermabond; ostomy wound clean without purulent drainage, packing removed and dressed with gauze)
[2024-12-28 11:06] LABS: Osmolality Urine 433 mOsm/kg (300-900)
[2024-12-28 11:17] LABS: Urine Sodium 88 mmol/L (30-90)
[2024-12-28 11:54] LABS: % Basophils 0.5 % (0-2); % Eosinophils 4.1 % (0-6); % Immature Granulocytes 0.1 % (0-0.5); % Lymphocytes 11.6 % (20.5-51.1); % Monocytes 7.2 % (1.7-9.3); % Neutrophils 76.5 % (42.2-75.2); Absolute Eosinophils 0.3 10^3/uL (0-0.7); Absolute Lymphocytes 0.9 10^3/uL (1.2-3.4); Absolute Monocytes 0.5 10^3/uL (0.1-0.6); Absolute Neutrophils 5.7 10^3/uL (1.4-6.5); Hemoglobin 9.5 g/dL (12.0-16.0); Mean Corp Hgb Conc. 31.7 g/dL (33.0-37.0); Mean Corpuscular Hgb 30.8 pg (27.0-31.0); Mean Corpuscular Volume 97.4 fL (81.0-99.0); Mean Platelet Volume 9.6 fL (7.4-10.4); Nucleated Red Blood Cells % 0 %; Platelet Count 188 10^3/uL (130-400); Red Blood Cell Count 3.08 10^6/uL (4.20-5.40); Red Cell Dist. Width 14.9 % (11.5-14.5); White Blood Cell Count 7.5 10^3/uL (4.8-10.8)
[2024-12-28 12:38] LABS: Blood Urea Nitrogen 22 mg/dl (7-17); Calcium 7.8 mg/dl (8.4-10.2); Carbon Dioxide 27 mmol/L (22-30); Chloride 102 mmol/L (98-107); Estimated Creatinine Clearance 57 ml/min; Glucose 93 mg/dl (70-99); Potassium 4.1 mmol/L (3.5-5.1); Sodium 134 mmol/L (135-145); eGFR > 60.00
--- NOTE | 2024-12-28 16:08 | CM ---
Reviewed the chart notes and spoke with the patient at the bedside. Discussed possible need for VN. Patient feels she does not need. Patient able to walker and climb steps without any problems. CM continues to be available to patient/family and
is monitoring medical plan for needs at discharge.
Plan: Discharge to home when medically stable. No needs anticipated.
[2024-12-29 03:13] VITALS: BP 159/88
[2024-12-29] MEDS: TORADOL 15 MG IV ×4 (04:29→21:00)
[2024-12-29] MEDS: TYLENOL 1000 MG PO ×4 (05:16→23:48)
[2024-12-29] MEDS: NORMOSOL-R/PLASMALYTE-A 1000 IV (05:18)
[2024-12-29 06:00] VITALS: BMI 32.4
[2024-12-29 07:28] VITALS: BP 156/87
[2024-12-29] MEDS: ENTEREG 12 MG PO ×2 (09:15→20:58)
[2024-12-29] MEDS: PROTONIX 40 MG PO (09:15)
[2024-12-29] MEDS: LEXAPRO 20 MG PO (09:15)
[2024-12-29] MEDS: HEPARIN 5000 UNITS SC ×3 (09:15→23:48)
[2024-12-29 11:51] VITALS: BP 168/95
[2024-12-29] MEDS: COZAAR 100 MG PO (13:07)
--- NOTE | 2024-12-29 15:47 | W.PN.CRS1 ---
Addendum entered and electronically signed by MIGUE Montgomery 01/04/25 07:39:
Mild BRIAN was present and now resolved with IVF
Addendum entered and electronically signed by Tony Sheldon MD 12/29/24 19:33:
I saw and examined the patient.
The KENNEL MANAGER's note was reviewed and I agree with the note.
Comment:
74-year-old female with PMH of GERD, HTN, OA, anxiety, asthma, diverticular stricture s/p Cadet's procedure who presents for elective colostomy reversal
Denies N/V, passing flatus and had a BM, nonbloody.
POD 3 robotic colostomy reversal, extensive lysis of adhesions, repair of enterotomy x 1, TAP block, ureteral stents by urology
AFVSS, ABD soft, non-distended, appropriately tender; port site incisions well-approximated without erythema or drainage, covered in Dermabond; colostomy site packed
No labs
� Advance to regular diet, okay to DC IVF
� Oliguria resolved; no elevation of Cr, I suspect misdocumentation of urine output from previous night as opposed to true oliguria
�DC Zambrano, monitor for void
� Pain control with Tylenol, Dilaudid as needed; add oxycodone as needed; continue Entereg until discharge
�Continue DVT PPx with SQH
� Encourage OOB/IS
�Continue home meds
�Likely DC tomorrow
Original Note:
Today's Communication / Plan
-
Advance diet
D/C zambrano
D/c IVF
Assessment/Plan
-
74-year-old female with PMH of GERD, HTN, OA, anxiety, asthma, diverticular stricture s/p Cadet's procedure who presents for elective colostomy reversal
POD 3 robotic colostomy reversal, extensive lysis of adhesions, repair of enterotomy x 1, TAP block, ureteral stents by urology
AFVSS
Following expected post operative course
Good UO >2.5L over 24h, oliguria resolved
Renal US without concerning findings, Cr wnl
-Advance to regular diet
-Remove zambrano for voiding trial
- D/C IVF
� Pain control with Tylenol, Toradol, oxycodone and dilaudid
� Continue DVT PPx with SQ heparin
� Encourage OOB/IS
- PT following
- Consult CM for home care arrangements
�Continue home meds, antihypertensives resumed
Anticipate d/c tomorrow if tolerating diet and pain controlled
Subjective Data
Procedure
12/26/2024- Robotic colostomy reversal, lysis of adhesions greater than 4 hours, repair of enterotomy, mesenteric angiography with ICG, flexible sigmoidoscopy, laparoscopic tap block; cystoscopy with ureteral stent placement by Dr. Le
(urology)
Subjective Data
Date of Service: December 29, 2024
Patient seen and examined at bedside with Dr. Sheldon. Jose n/v. Notes she is quite hungry. Pain well managed. Passing stools and flatus.
Objective Data
-
Vital Signs
Temp Pulse Resp BP Pulse Ox
98.3 F 90 16 168/95 99
12/29/24 11:51 12/29/24 11:51 12/29/24 11:51 12/29/24 11:51 12/29/24 11:51
Intake & Output
12/28/24 12/29/24 12/30/24
06:59 06:59 06:59
Intake Total 3605 / 3605 4500 / 4500
Output Total 600 / 600 2775 / 2775
Balance 3005 / 3005 1725 / 1725
Intake:
Oral fluids 480 / 480 2700 / 2700
IV fluids (Total) 3125 / 3125 1800 / 1800
Output:
Urine, Zambrano 600 / 600 2675 / 2675
Urine, Voided 100 / 100
Lab Results
12/28/24 11:46
12/28/24 11:46
Physical Exam
-
General: No Acute Distress
HEENT: Grossly Normal
Abdomen: Soft, Non Distended and Non Tender
Skin: Warm and Dry
Wound: No Signs of Infection, No Skin Erythema and Other (Incisions well-approximated without erythema or drainage, covered in Dermabond; ostomy wound clean without purulent drainage, packing removed and dressed with gauze)
[2024-12-29 15:48] VITALS: BP 148/71
[2024-12-29 19:37] VITALS: BP 131/78
[2024-12-29 23:37] VITALS: BP 161/82
[2024-12-30 03:29] VITALS: BP 160/88
[2024-12-30] MEDS: TORADOL 15 MG IV ×2 (04:12→09:33)
[2024-12-30 06:00] VITALS: BMI 32.4
[2024-12-30] MEDS: TYLENOL 1000 MG PO ×2 (06:02→12:23)
[2024-12-30 07:15] VITALS: BP 166/88
[2024-12-30] MEDS: COZAAR 100 MG PO (09:33)
[2024-12-30] MEDS: LEXAPRO 20 MG PO (09:33)
[2024-12-30] MEDS: ENTEREG 12 MG PO (09:33)
[2024-12-30] MEDS: PROTONIX 40 MG PO (09:33)
[2024-12-30] MEDS: HEPARIN 5000 UNITS SC (09:35)
[2024-12-30] MEDS: ORETIC 25 MG PO (09:35)
--- NOTE | 2024-12-30 10:03 | W.PN.CRS1 ---
Addendum entered and electronically signed by Tony Sheldon MD 12/30/24 15:14:
I saw and examined the patient.
The WATER OPERATOR's note was reviewed and I agree with the note.
Comment:
Tolerating diet with flatus and BMs, nonbloody. Voiding.
Okay for DC with follow-up with me in 2 to 4 weeks. Continue daily dressing change to ostomy wound.
Original Note:
Today's Communication / Plan
-
dispo planning
Assessment/Plan
-
74-year-old female with PMH of GERD, HTN, OA, anxiety, asthma, diverticular stricture s/p Cadet's procedure who presents for elective colostomy reversal
POD 4 robotic colostomy reversal, extensive lysis of adhesions, repair of enterotomy x 1, TAP block, ureteral stents by urology
AFVSS
Good bowel activity and voiding well
- Continue to regular diet
� Pain control with Tylenol, Toradol, oxycodone
� Continue DVT PPx with SQ heparin
� Encourage OOB/IS
- PT following/CM following
�Continue home meds
discharge to home
Subjective Data
Procedure
12/26/2024- Robotic colostomy reversal, lysis of adhesions greater than 4 hours, repair of enterotomy, mesenteric angiography with ICG, flexible sigmoidoscopy, laparoscopic tap block; cystoscopy with ureteral stent placement by Dr. Le
(urology)
Subjective Data
Date of Service: December 30, 2024
Patient seen and examined at bedside with Dr. Sheldon. Denies n/v. Tolerating diet. Feels ready to go home. Pain minimal and well managed.
Objective Data
-
Vital Signs
Temp Pulse Resp BP Pulse Ox
98.0 F 85 16 166/88 97
12/30/24 07:15 12/30/24 07:15 12/30/24 07:15 12/30/24 07:15 12/30/24 07:15
Intake & Output
12/29/24 12/30/24 12/31/24
06:59 06:59 06:59
Intake Total 4500 / 4500 1560 / 1560
Output Total 2775 / 2775 1175 / 1175
Balance 1725 / 1725 385 / 385
Intake:
Oral fluids 2700 / 2700 1560 / 1560
IV fluids (Total) 1800 / 1800
Output:
Urine, Peraza 2675 / 2675 775 / 775
Urine, Voided 100 / 100 400 / 400
Other:
Number of approximated MODERATE 1
amounts of urine
Lab Results
12/28/24 11:46
12/28/24 11:46
Physical Exam
-
General: No Acute Distress
HEENT: Grossly Normal
Abdomen: Soft, Non Distended and Non Tender
Skin: Warm and Dry
Wound: No Signs of Infection, No Skin Erythema and Other (Incisions well-approximated without erythema or drainage, covered in Dermabond; ostomy wound clean without purulent drainage, packing removed and dressed with gauze)
[2024-12-30 11:41] VITALS: BP 143/90
[2024-12-30 13:32] VITALS: BP 156/88
--- NOTE | 2024-12-30 14:16 | W.DCSUMMARY ---
Discharge Summary
Discharge Data
Date of Admission: 12/26/24
Date of Discharge: 12/30/24
-
Pending Results: No
Hospital Course
Ms Jacob is a 74 yo female who presented for reversal her colostomy. She tolerated the procedure well with good bowel recovery post operatively. Stents were placed for identification of the ureters intraoperatively by urology with removal post
operatively. Peraza was placed for management of oliguria without acute abnormality on renal ultrasound. She was noted to have improved urine outputs and the catheter was removed and she was voiding well. BP meds which were held initially due to
hypotension post operatively, were resumed prior to discharge and well tolerated. Pain was well managed on oral agents. PT followed her during her course of stay with home health recommended and arranged. Outpatient follow up arranged in the coming
weeks.
Discharge Plan
-
Patient Disposition: Home (Routine Discharge)
Discharge Diagnosis/Procedures: Robotic colostomy reversal, lysis of adhesions greater than 4 hours, repair of enterotomy, mesenteric angiography with ICG, flexible sigmoidoscopy, laparoscopic tap block; cystoscopy with ureteral stent placement by
Dr. Le (urology)
Condition: Good
Diet: Regular
Activity: No strenuous activity
Additional Activity: No lifting over 10 pounds (gallon of milk)
Driving Restrictions: No driving for 1 week
Bathing Restrictions: OK to Shower
Other Services: VN
Wound Care: Cover your previous colostomy site with dry gauze and paper tape. Change daily and as needed. Okay to leave open to air to have a shower. Allow water to run off the incision and do not scrub.
Referrals:
Tony Sheldon MD [Active] - in two weeks
Destiney Lewis MD [Family Provider] -
Prescriptions:
New
tramadol 50 mg tablet
25 - 50 mg PO Q6HPRN PRN (Reason: severe pain/breakthrough pain) Qty: 15 0RF
Continued
losartan 100 mg Tablet
100 mg PO DAILY
escitalopram oxalate 20 mg Tablet
20 mg PO DAILY
meloxicam 15 mg tablet
15 mg PO DAILY
ascorbic acid (vitamin C) [Vitamin C] 1,000 mg Tablet
1 g PO DAILY
hydrochlorothiazide 25 mg Tablet
25 mg PO DAILY
cholecalciferol (vitamin D3) [Vitamin D3] 25 mcg (1,000 unit) Tablet
25 mcg PO DAILY
diclofenac sodium 1 % Gel
2 g TOPICAL PRN PRN (Reason: pain)
Centrum Adult 50 Plus 80 mcg Tablet,Chewable
1 tab PO DAILY
pantoprazole 40 mg tablet,delayed release (DR/EC)
40 mg PO DAILY
acetaminophen 500 mg Tablet
1,000 mg PO Q6H PRN (Reason: pain)
Discontinued
magnesium oxide 250 mg magnesium Tablet
250 mg PO DAILY
sennosides [senna] 8.6 mg Tablet
8.6 mg PO DAILY
metronidazole [Flagyl] 500 mg Tablet
500 mg PO DIRECTED
neomycin 500 mg Tablet
1 g PO DIRECTED
Sutab 1.479-0.188- 0.225 gram Tablet
0 tab PO PER PKG DIR
Discharge Orders:
Discharge Patient (As Directed); Ordered 12/30/24
Ordered By: Karlie Dowd
Discharge Date and Time
Discharge Date/Time: 12/30/24 13:54
Print Language: P[place]
--- NOTE | 2025-01-01 08:55 | PN.CDI ---
CDI
- -
CDI:
Physician Documentation Request
Admit Date: 12/26/24 06:01
Dear Doctor / CORPORATE SALES TRAINER,
Please review the following and provide your response in the progress notes.
Clinical Indicators:
Pt here for colostomy reversal done 12/26
Progress note 12/28,�Oliguria overnight...Will send urine studies and obtain renal ultrasound to rule out hydronephrosis Continue IV fluids at 100/hr Repeat labs for noon...�Holding Toradol for possible BRIAN....'
Renal functions as below
12/26/24 12/27/24 12/28/24
17:30 05:19 05:12
Creatinine 1.2 H 1.1 H 0.9
12/28/24
11:46
Creatinine 0.8
Please update the status of Possible BRIAN documented in progress note 12/28:
BRIAN -is a valid diagnosis
BRIAN -ruled out
Other ( please specify)
Criteria for BRIAN*
1 Increase in serum creatinine by > or = to 0.3 mg/dL (> or = to 26.5 micromol/L) within 48 hours, OR
2 Increase in serum creatinine to > or = to 1.5 times baseline, which is known or presumed to have occurred within 7 days, OR
3 Urine volume < 0.5 nL/kg/hour for six hours
Use of terms such as suspected, likely, concern for, or probable (associated with a specific diagnosis that is being evaluated, monitored, or treated as if it exists) are acceptable and can be coded in the inpatient setting, when documented at the
time of discharge.
Thank you,
Shaneka Hill RN
CDI Specialist
Theodore Text
Please use your independent medical judgment in providing your response.
*Source: Kidney Disease: Improving Global Outcomes (KDIGO) 2012
== END 2024-12-30 13:54 | disposition home or self-care (01) | DRG 336 ==
LOC: 2 SOUTH 06:01
PROVIDERS: Physician Assistant; ADMITTING PHYSICIAN Surgery; FAMILY PHYSICIAN Family Medicine
PROC: 8E0W4CZ Robotic Assisted Procedure of Trunk Region, Percutaneous Endoscopic Approach (ICD-10-PCS; 2024-12-26)
PROC: 0DSN4ZZ Reposition Sigmoid Colon, Percutaneous Endoscopic Approach (ICD-10-PCS; 2024-12-26)
PROC: 0DN84ZZ Release Small Intestine, Percutaneous Endoscopic Approach (ICD-10-PCS; 2024-12-26)
DX: Z43.3 Encounter for attention to colostomy (principal); N17.9 Acute kidney failure, unspecified; I10 Essential (primary) hypertension; K66.0 Peritoneal adhesions (postprocedural) (postinfection); K21.9 Gastro-esophageal reflux disease without esophagitis; J45.909 Unspecified asthma, uncomplicated; M81.0 Age-related osteoporosis without current pathological fracture; Z79.899 Other long term (current) drug therapy
CPT/HCPCS: 88304; 88307; 36415; 71046; 76775; 80048; 80053; 82570; 83930; 83935; 84300; 85025; 85027; 85610; 85730; 86803; 86850; 86900; 86901; 93005; 97162; 97530; J1335

== ENCOUNTER 2025-09-05 08:55 | Inpatient (IN) | payer OTHER, SELFPAY ==
--- NOTE | 2025-08-19 13:59 | CM ---
Addendum entered by Jennifer Sosa RN 08/21/25 14:00:
Demographics: confirmed
Living situation: daughter will stay with patient
Support Person Post Operatively: daughter
History of
VN: yes, no currently not on service
SNF: [facility]
Outpatient: Encouraged patient to make outpatient PT for 09/07
Has patient purchased required equipment: yes
PCP: Rajesh Galeano
Pharm[facility]: [facility]
Post Operative Discharge Plan: Home with daughter and outpatient PT.
Original Note:
CM reviewed medical records. Patient is well knownt to this CM. Of note, patient was hospitalized at [facility] s/p suicide attempt.
CM left message for orthopedic [place].
[2025-08-26 14:09] VITALS: BMI 33.0
[2025-08-26 14:46] LABS: Hematocrit 37.1 % (37.0-47.0); Hemoglobin 11.7 g/dL (12.0-16.0); Mean Corp Hgb Conc. 31.5 g/dL (33.0-37.0); Mean Corpuscular Volume 96.4 fL (81.0-99.0); Platelet Count 252 10^3/uL (130-400); Red Cell Dist. Width 13.1 % (11.5-14.5)
[2025-08-26 15:00] LABS: ALT (SGPT) 19 U/L (0-35); AST (SGOT) 26 U/L (14-36); Albumin 4.6 g/dl (3.5-5.0); Alkaline Phosphatase 82 U/L (38-126); Blood Urea Nitrogen 45 mg/dl (7-17); Calcium 9.9 mg/dl (8.4-10.2); Carbon Dioxide 29 mmol/L (22-30); Chloride 104 mmol/L (98-107); Estimated Creatinine Clearance 46 ml/min; Glucose 94 mg/dl (70-99); Potassium 5.2 mmol/L (3.5-5.1); Sodium 140 mmol/L (135-145); Total Protein 7.7 g/dl (6.3-8.2); eGFR 58.39
[2025-08-26 16:27] VITALS: BMI 33.0
[2025-08-27 09:00] LABS: Glycohemoglobin (HgbA1c) 5.8 % (4.0-5.6)
[2025-09-05] VITALS (21 sets, daily range): BP systolic 102–191; BP diastolic 54–106; PULSE 80; O2SAT 97; BMI 33.0
[2025-09-05] MEDS: CELEBREX 200 MG PO (09:38)
[2025-09-05] MEDS: NORMOSOL-R/PLASMALYTE-A 1000 IV (09:38)
[2025-09-05] MEDS: TYLENOL 650 MG PO ×4 (09:38→23:09)
--- NOTE | 2025-09-05 11:56 | W.PN.UPDATE ---
Update Note
Progress Note Update
L knee OA s/p L TKA w/ Dr Malone 09/05/25
DVT prophylaxis - ASA, b/l venous foot pumps
Fine, expiratory wheezes at b/l lung bases pre-op - monitor O2
- Standing order Duoneb tx
- Decadron to aid in lung perfusion
HTN - + parameters - monitor BP
Tachycardia - monitor on tele
- Continue newly Rx Metoprolol
GERD and hiatal hernia - continue PPI therapy
H/o colonic stricture w/ bowel obstruction status post bowel resection
History of ischemic colitis secondary to above
- Bowel regimen of Colace/Senna/MOM HS. Can switch MOM to Metamucil if preferable upon d/c
- Will encourage oral hydration and early mobility as tolerated
- Minimize opioids as able
- Try to minimize NSAIDs d/t colitis hx
H/o benzodiazepine overdose/suicide attempt - avoid benzos
Mild pre-op anemia - non-invasive hgb in AM
Depression
Anxiety
Mild hyperkalemia
Prediabetes, A1c 5.8
Obesity, BMI 32.9
Remote tobacco abuse
[2025-09-05] MEDS: SUBLIMAZE 50 MCG IV ×2 (13:07→13:20)
[2025-09-05] MEDS: DILAUDID 0.5 MG IV ×2 (14:08→15:01)
[2025-09-05] MEDS: ROXICODONE 5 MG PO ×3 (14:16→22:33)
[2025-09-05] MEDS: COZAAR 50 MG PO (14:16)
[2025-09-05] MEDS: ORETIC 25 MG PO (16:01)
[2025-09-05] MEDS: VITAMIN D3 (cholecalciferol) 25 MCG PO (16:01)
[2025-09-05] MEDS: LEXAPRO 20 MG PO (16:01)
[2025-09-05] MEDS: FLORASTOR 250 MG PO ×2 (16:02→20:10)
[2025-09-05] MEDS: NSS 1000 IV (16:02)
[2025-09-05] MEDS: TYLENOL PO (16:04)
[2025-09-05] MEDS: LIDOCAINE 4% PATCH 1 PATCH TOPICAL (16:05)
[2025-09-05] MEDS: TORADOL 15 MG IV (16:05)
--- NOTE | 2025-09-05 16:13 | W.PN.UPDATE ---
Update Note
Progress Note Update
Patient doing well postop. VSS. Pulm: nonlabored. CV: regular. LLE: NVI distally. Calf soft. Able to fully extend. Dressing CDI. Postop xray as expected. ASA for DVT prophylaxis. Plan for discharge home tomorrow with outpatient PT on
Tuesday.
--- NOTE | 2025-09-05 16:49 | PTCARENOTE ---
1530 Pt arrived from PACU. Pt AAOX3. Neurovascular checks WNL. IVF infusing. 2LO2 97%. Pain 5/10 medicated per MAR. Oriented to room and call bolivar. bed locked and in lowest position.
[2025-09-05] MEDS: ANCEF 5 IV (17:19)
[2025-09-05] MEDS: ASPIRIN 325 MG PO (17:19)
[2025-09-05] MEDS: COLACE 100 MG PO (20:10)
[2025-09-05] MEDS: SENOKOT 17.2 MG PO (20:10)
[2025-09-05] MEDS: DECADRON 4 MG PO (20:10)
[2025-09-05] MEDS: BACTROBAN 2% OINTMENT 1 APPLIC NASAL (20:10)
[2025-09-05] MEDS: PROTONIX 40 MG PO (20:10)
[2025-09-05] MEDS: REMOVE LIDOCAINE PATCH 1 PATCH REMOVE (20:42)
[2025-09-05] MEDS: NEURONTIN 300 MG PO (21:03)
[2025-09-06] MEDS: ANCEF 5 IV (01:01)
[2025-09-06 03:06] VITALS: BP 128/74
[2025-09-06] MEDS: TYLENOL 650 MG PO ×2 (03:09→08:05)
--- NOTE | 2025-09-06 07:04 | W.PN.ORTHO ---
Today's Communication / Plan
-
Plan for home today
Assessment
.
Distal Motor Intact: Yes
Dressing:
Clean, dry and intact.
Assessment:
Doing well S/P L TKR
Plan
.
Surgery / Date: 09/05/2025
DVT Prophylaxis: Aspirin
Activity:
Out of bed.
PT/OT
Discharge Plan: Home w/ Outpatient PT
Discharge Information:
Plan for discharge home today with outpatient PT on Tuesday
Subjective
.
.:
Patient resting comfortably. Was OOB yesterday. Having some discomfort.
Vital Signs and Labs
.
Vital Signs and Labs:
Lab Results
08/26/25 12:40
08/26/25 12:40
Temp Pulse Resp BP Pulse Ox
97.5 F 82 16 128/74 92
09/06/25 03:06 09/06/25 03:06 09/06/25 03:06 09/06/25 03:06 09/06/25 03:06
Non-invasive Hgb result: 11.4
Physical Exam
-
Pulm: nonlabored
CV: regular
LLE: Dressing CDI. NVI distally. Able to fully extend and SLR. Flexion to 90 degrees
[2025-09-06 07:20] VITALS: BP 132/72
--- NOTE | 2025-09-06 08:03 | W.PN.ORTHO ---
Today's Communication / Plan
-
Await PT and OT recs.
D/c later today if remaining clinically stable.
Assessment
.
Distal Motor Intact: Yes
Dressing:
Clean, dry and intact.
Assessment:
L knee OA s/p L TKA w/ Dr Malone 09/05/25
DVT prophylaxis - ASA, b/l venous foot pumps
Fine, expiratory wheezes at b/l lung bases pre-op - O2 stable on RA
- Standing order Duoneb tx during admission
- Decadron to aid in lung perfusion
- Lungs CTA b/l w/ measures above POD 1. No tachypnea noted.
HTN - + parameters
- BPs elevated immediately post-op d/t holding of AM anti-hypertensives, pain, and anxiety
- BPs improved w/ resumption of home meds w/ SBP parameters, reassurance, and adequate pain control
Tachycardia - maintaining NSR on tele
- Continue newly Rx Metoprolol XL
GERD and hiatal hernia - continue PPI therapy
H/o colonic stricture w/ bowel obstruction status post bowel resection
History of ischemic colitis secondary to above
- Bowel regimen of Colace/Senna/MOM HS. Can switch MOM to Metamucil if preferable upon d/c
- Will encourage oral hydration and early mobility as tolerated
- Minimize opioids as able
- Meloxicam was prescribed pre-op. Will advise she use this for breakthrough pain prn.
H/o benzodiazepine overdose/suicide attempt - avoid benzos
Mild pre-op anemia - hgb 11.7 pre-op -> non-invasive hgb 11.3 POD 1
- Asymptomatic, hemodynamically stable
Depression
Anxiety
Mild hyperkalemia
Prediabetes, A1c 5.8
Obesity, BMI 32.9
Remote tobacco abuse
Plan
.
Surgery / Date: L TKA w/ Dr Malone 09/05/25
Activity:
Out of bed.
PT/OT
Discharge Plan: Home w/ Outpatient PT (vs home w/ VN. Will await therapy recs. )
Subjective
.
.:
Patient resting comfortably in bed.
L knee pain well controlled in comparison to yesterday.
Pt overall happy with her current state.
Denies any new significant complaints.
Eager for potential d/c today.
Vital Signs and Labs
.
Vital Signs and Labs:
Lab Results
08/26/25 12:40
08/26/25 12:40
Temp Pulse Resp BP Pulse Ox
97.5 F 82 16 128/74 92
09/06/25 03:06 09/06/25 03:06 09/06/25 03:06 09/06/25 03:06 09/06/25 03:06
Non-invasive Hgb result: 11.4
Physical Exam
-
HEENT: No pallor, cyanosis, or jaundice. Throat clear.
NECK: Supple. No JVD.
RESPIRATORY: Lungs clear to auscultation.
CVS: S1, S2 normal. RRR.�
ABDOMEN: Soft, non-tender. No distension. Obese.
EXTREMITIES: Expected post-surgical L knee edema. Strength equal, no calf pain with palpation/dorsiflexion. Calves soft.
STARS COORDINATOR: AOx3. No focal deficits. principal engineer grossly intact
[2025-09-06] MEDS: ROXICODONE 5 MG PO ×2 (08:04→12:54)
[2025-09-06] MEDS: ASPIRIN 325 MG PO (08:06)
[2025-09-06] MEDS: PROTONIX 40 MG PO (08:06)
[2025-09-06] MEDS: FLORASTOR 250 MG PO (08:06)
[2025-09-06] MEDS: COLACE 100 MG PO (08:06)
[2025-09-06] MEDS: TOPROL XL 25 MG PO (08:07)
[2025-09-06] MEDS: ORETIC PO (08:07)
[2025-09-06] MEDS: SENOKOT 17.2 MG PO (08:08)
[2025-09-06] MEDS: LEXAPRO 20 MG PO (08:08)
[2025-09-06] MEDS: VITAMIN C 1000 MG PO (08:08)
[2025-09-06] MEDS: DECADRON 4 MG PO (08:09)
[2025-09-06] MEDS: BACTROBAN 2% OINTMENT 1 APPLIC NASAL (08:09)
[2025-09-06] MEDS: VITAMIN D3 (cholecalciferol) 25 MCG PO (08:09)
[2025-09-06] MEDS: LIDOCAINE 4% PATCH 2 PATCH TOPICAL (08:10)
--- NOTE | 2025-09-06 08:17 | W.DS.TRANS ---
DC Summary - Car Rider
-
Discharge Instructions:
Sleep Apnea Risk Low
Discharge Diagnosis/Procedures L knee OA s/p L TKA w/ Dr Malone 09/05/25
Diet Regular
Additional Diets Adequate hydration, minimize opioids, and wear
TEDs stockings to prevent low blood pressure/
dizziness.
Activity With Walker,As tolerated
Driving Restrictions Not until seen by your Dr
Bathing Restrictions OK to Shower
Other Services PT
Wound Care Dressing to be removed 1 week post-surgery.
[place] to be removed at 2 week follow-up with
surgeon's office.
Instructions:
Stand-Alone Forms: Total Hip/Knee Replacement D/C
Changes to Home Medications: Yes
Discharge Medications:
DC Medications w/original date entered in [facility]
escitalopram oxalate 20 mg tablet 20 mg PO DAILY Mental Health/Anxiety 07/26/24
cholecalciferol (vitamin D3) 25 mcg (1,000 unit) tablet (Vitamin D3) 25 mcg PO DAILY Supplement 12/19/24
pantoprazole 40 mg tablet,delayed release 40 mg PO BID before meals 12/19/24
ascorbic acid (vitamin C) 1,000 mg tablet (Vitamin C) 1,000 mg PO DAILY Supplement 08/22/25
magnesium 250 mg tablet 250 mg PO DAILY Supplement 08/22/25
ireesjduccfs-rxltlacc-mkuqyx tablet 1 tab PO DAILY Supplement 08/22/25
psyllium husk 0.4 gram capsule (Metamucil) 1.6 g PO DAILY Constipation 08/22/25
mupirocin 2 % topical ointment 1 applic topical BID infection prevention #1 tube 08/23/25
cefadroxil 500 mg capsule 500 mg PO BID infection prevention #14 caps 08/26/25
dexamethasone 4 mg tablet 4 mg PO BID inflammation #6 tabs 08/26/25
gabapentin 300 mg capsule 300 mg PO HS sleep/pain #10 caps 08/26/25
metoprolol succinate 25 mg tablet,extended release 24 hr (Toprol XL) 25 mg PO BID tachycardia/bp #90 tabs 08/26/25
ondansetron 4 mg disintegrating tablet 4 mg PO Q6H PRN n/v #20 tabs 08/26/25
oxycodone 5 mg tablet 5 mg PO Q6H PRN 1 tab moderate pain, 2 tabs severe pain #30 tabs 08/26/25
Saccharomyces boulardii 250 mg capsule 250 mg PO BID #14 caps 09/06/25
acetaminophen 650 mg tablet,extended release 1,300 mg (2 x 650 mg) PO Q8H #60 tabs 09/06/25
aspirin 325 mg tablet 325 mg PO DAILY #30 tabs 09/06/25
diclofenac sodium 1 % topical gel 2 g topical DAILYPRN PRN left shoulder pain #50 grams 09/06/25
docusate sodium 100 mg capsule 100 mg PO BID #30 caps 09/06/25
hydrochlorothiazide 25 mg tablet 25 mg PO DAILY Fluid Retention/Swelling #30 tabs 09/06/25
lidocaine 4 % topical patch 2 patch topical DAILY #30 ea 09/06/25
losartan 100 mg tablet 100 mg PO DAILY Blood Pressure #1 tab 09/06/25
meloxicam 15 mg tablet 15 mg PO DAILY PRN breakthrough pain #14 tabs 09/06/25
sennosides 8.6 mg tablet (Grace-krysten) 17.2 mg (2 x 8.6 mg) PO BID #30 tabs 09/06/25
Home Medication Changes
cefadroxil 500 mg capsule 500 mg PO BID infection prevention #14 caps 08/26/25
dexamethasone 4 mg tablet 4 mg PO BID inflammation #6 tabs 08/26/25
gabapentin 300 mg capsule 300 mg PO HS sleep/pain #10 caps 08/26/25
ondansetron 4 mg disintegrating tablet 4 mg PO Q6H PRN n/v #20 tabs 08/26/25
oxycodone 5 mg tablet 5 mg PO Q6H PRN 1 tab moderate pain, 2 tabs severe pain #30 tabs 08/26/25
Saccharomyces boulardii 250 mg capsule 250 mg PO BID #14 caps 09/06/25
acetaminophen 650 mg tablet,extended release 1,300 mg (2 x 650 mg) PO Q8H #60 tabs 09/06/25
aspirin 325 mg tablet 325 mg PO DAILY #30 tabs 09/06/25
docusate sodium 100 mg capsule 100 mg PO BID #30 caps 09/06/25
lidocaine 4 % topical patch 2 patch topical DAILY #30 ea 09/06/25
meloxicam 15 mg tablet 15 mg PO DAILY PRN breakthrough pain #14 tabs 09/06/25
sennosides 8.6 mg tablet (Grace-krysten) 17.2 mg (2 x 8.6 mg) PO BID #30 tabs 09/06/25
Pending Results: No
[2025-09-06 09:21] VITALS: BP 149/81; PULSE 78; O2SAT 95
--- NOTE | 2025-09-06 09:29 | CM ---
CM reviewed medical records. CM met with patient in room. Patient stated that she feels 'great' and is looking forward to discharge to home. Patient has her outpatient PT appointments for 09/09 made.
CM will await PT/OT recommendations for any further discharge planning.
PLAN: Home with outpatient PT.
[2025-09-06 11:15] VITALS: BP 113/69
== END 2025-09-06 13:22 | disposition home or self-care (01) | DRG 470 ==
LOC: 2 SOUTH 08:55
PROVIDERS: ADMITTING PHYSICIAN Orthopaedic Surgery; FAMILY PHYSICIAN Nurse Practitioner Family
PROC: 0SRD0J9 Replacement of Left Knee Joint with Synthetic Substitute, Cemented, Open Approach (ICD-10-PCS; 2025-09-05)
DX: M17.12 Unilateral primary osteoarthritis, left knee (principal); E66.9 Obesity, unspecified; I10 Essential (primary) hypertension; K21.9 Gastro-esophageal reflux disease without esophagitis; K44.9 Diaphragmatic hernia without obstruction or gangrene; D64.9 Anemia, unspecified; F32.A Depression, unspecified; R73.03 Prediabetes; F41.9 Anxiety disorder, unspecified; R00.0 Tachycardia, unspecified; E87.5 Hyperkalemia; Z60.2 Problems related to living alone; Z90.49 Acquired absence of other specified parts of digestive tract; Z68.32 Body mass index [BMI] 32.0-32.9, adult; Z87.891 Personal history of nicotine dependence; Z87.19 Personal history of other diseases of the digestive system; Z91.51 Personal history of suicidal behavior; Z88.1 Allergy status to other antibiotic agents; Z88.0 Allergy status to penicillin; Z79.899 Other long term (current) drug therapy
CPT/HCPCS: 36415; 73560; 80053; 83036; 85027; 86850; 86900; 86901; 87070; 93005; 97110; 97116; 97163; 97167; C1713; C1776

== ENCOUNTER 2025-09-16 18:28 | Observation (INO) | payer OTHER, SELFPAY ==
[2025-09-16 12:33] VITALS: BP 142/84
[2025-09-16 13:11] LABS: Hematocrit 32.0 % (37.0-47.0); Hemoglobin 9.7 g/dL (12.0-16.0); Mean Corp Hgb Conc. 30.3 g/dL (33.0-37.0); Mean Corpuscular Volume 102.9 fL (81.0-99.0); Nucleated Red Blood Cells % 0 %; Platelet Count 353 10^3/uL (130-400); Red Cell Dist. Width 13.9 % (11.5-14.5)
[2025-09-16 13:24] LABS: ALT (SGPT) 16 U/L (0-35); AST (SGOT) 25 U/L (14-36); Albumin 3.9 g/dl (3.5-5.0); Alkaline Phosphatase 80 U/L (38-126); Blood Urea Nitrogen 22 mg/dl (7-17); Calcium 9.3 mg/dl (8.4-10.2); Carbon Dioxide 31 mmol/L (22-30); Chloride 102 mmol/L (98-107); Glucose 107 mg/dl (70-99); Potassium 4.4 mmol/L (3.5-5.1); Sodium 136 mmol/L (135-145); Total Protein 6.9 g/dl (6.3-8.2); eGFR 58.39
[2025-09-16 14:03] VITALS: BMI 36.0
--- NOTE | 2025-09-16 14:20 | ED.GENMED ---
History of Present Illness
General
Chief Complaint: Post Operative Problem(s)
Source: patient
Exam Limitations: none
Time Seen by Provider: 09/16/25 13:52
History of Present Illness
History of Present Illness:
75-year-old female presents with increasing swelling pain and redness to the left knee. On the ninth of this month she had her left knee replaced. She has been on an antibiotic for 4 days following the procedure however she developed a reaction to
this and stopped. She been off the antibiotic for a week. She denies fevers or chills. No chest pain or shortness of breath. No injury.
Past History
Past History
ED Past Medical History: GERD, HTN, Psychiatric, Other (Diverticulitis) and Other (Iron deficiency anemia)
ED Past Surgical History: Gynecological, Orthopedic and Other
Social History
Tobacco: Non-smoker
Alcohol: None
Drug: None
Personal:
Living: with family
Employment: Not employed
Family History
Family History: Other (Noncontributory)
Phy Exam
Physical Exam
Physical Exam:
General: Well developed female with obvious discomfort
HEENT normal cephalic atraumatic
Heart: Regular rate and rhythm
Lungs: Clear no wheeze
Musculoskeletal exam: Left knee is diffusely tender. There is an effusion noted. There is some erythema noted over the inferior portion of the incision. Patient is keeping her knee bent and he attempted straightening her leg beyond 20 degrees
painful for her.
Vascular: 2+ DP pulse left foot
Course
Orders/Labs/Results
Orders:
Orders
09/16/25 12:35
US Legs, Left [US Periph Venous LOWER Ext LT] Urgent
Comment:
Reason For Exam: left leg swelling
09/16/25 12:43
C-Reactive Protein Urgent
Comment: ADD ON
Complete Blood Count/With Diff Urgent
Comprehensive Metabolic Panel Urgent
Erythrocyte Sed Rate Urgent
Comment: ADD ON
Lactic Acid Urgent
09/16/25 14:18
HYDROmorphone [Dilaudid] 0.5 mg IV NOW STA
CR Knee - Left 4 Or More View* Urgent
Comment:
Reason For Exam: pain
09/16/25 16:05
Add On- LAB Urgent
Tests Added?: esr, crp
Abnormal Lab Results
09/16/25
12:43
RBC 3.11 L 10^6/uL
(4.20-5.40)
Hgb 9.7 L g/dL
(12.0-16.0)
Hct 32.0 L %
(37.0-47.0)
MCV 102.9 H fL
(81.0-99.0)
MCH 31.2 H pg
(27.0-31.0)
MCHC 30.3 L g/dL
(33.0-37.0)
Absolute Neuts (auto) 7.4 H 10^3/uL
(1.4-6.5)
Absolute Lymphs (auto) 0.7 L 10^3/uL
(1.2-3.4)
Neutrophils % 84.9 H %
(42.2-75.2)
Lymphocytes % 8.0 L %
(20.5-51.1)
ESR 67 H mm/hour
(0-20)
Carbon Dioxide 31 H mmol/L
(22-30)
BUN 22 H mg/dl
(7-17)
Glucose 107 H mg/dl
(70-99)
C-Reactive Protein 40.80 H mg/L
(0.0-10.00)
09/16/25 12:43
09/16/25 12:43
Vital Signs
Initial and Last Documented VS:
Initial Vital Signs
Temp Pulse Resp BP Pulse Ox
98.1 F 111 20 142/84 98
09/16/25 12:33 09/16/25 12:33 09/16/25 12:33 09/16/25 12:33 09/16/25 12:33
Last Documented Vital Signs
Temp Pulse Resp BP Pulse Ox
98.1 F 111 20 142/84 98
09/16/25 12:33 09/16/25 12:33 09/16/25 12:33 09/16/25 12:33 09/16/25 14:22
MDM/Problems Addressed
Differential Diagnosis Includes:
Left knee and leg pain and swelling 10 days status post left total knee arthroplasty. Consider effusion versus cellulitis versus DVT versus fracture or subluxed patella
Ultrasound left leg ordered x-ray of left knee ordered will treat pain
*Pulse Oximetry
SaO2: 98
Oxygen Mode of Delivery: Room air
Patient hypoxic: no
*Critical Care Note
Total Time (30-74mins, 75-104mins- exclusive of procedures): Not Applicable
Update Note
Update Note:
Ultrasound negative for DVT x-ray shows normal-appearing implant. Discussed findings with orthopedics and send a picture of her knee. White count is normal here no fever here. Suspicion of infected knee is low. Patient is having trouble
tolerating pain meds at home. Family states that it took multiple here just to get her into a wheelchair to come here secondary to her pain. It would be an unsafe discharge at this point secondary to significant pain of the patient's knee.
Orthopedics made aware. Hospitalist made aware. Will keep in hospital for potential physical therapy involvement and placement
ED Attending Note
-
Portions of this chart may have been created with voice recognition software.� Occasional wrong word or��sound alike� substitutions may have occurred due to the inherent limitations of voice recognition software.
Discharge Plan
Departure
Patient Disposition: Admit
Date of Disposition: 09/16/25
Time of Disposition: 17:08
Presentation/result/management discussed w/ accepting MD/DO: Hospitalist
Patient with high blood pressure during this ER visit?: No
Discharge Problem:
Ambulatory dysfunction
Prescriptions:
No Action
escitalopram oxalate 20 mg Tablet
20 mg PO DAILY
cholecalciferol (vitamin D3) [Vitamin D3] 25 mcg (1,000 unit) Tablet
25 mcg PO DAILY
pantoprazole 40 mg tablet,delayed release (DR/EC)
40 mg PO BID
ascorbic acid (vitamin C) [Vitamin C] 1,000 mg Tablet
1,000 mg PO DAILY
magnesium 250 mg Tablet
250 mg PO DAILY
iiursksqlffg-irddwolk-ddjhxn Tablet
1 tab PO DAILY
psyllium husk [Metamucil] 0.4 gram Capsule
1.6 g PO DAILY
mupirocin 2 % ointment
1 applic topical BID Qty: 1 0RF
Patient Comments:
started treatment on tuesday09/02/25 and completed BID last took at home 09/05/25 am
cefadroxil 500 mg capsule
500 mg PO BID Qty: 14 0RF
Rx Instructions:
*Take w/ food
*Take w/ probiotic
*POST-OP USE
dexamethasone 4 mg tablet
4 mg PO BID Qty: 6 0RF
Rx Instructions:
take with food
post-op use only
gabapentin 300 mg capsule
300 mg PO HS Qty: 10 0RF
Rx Instructions:
*POST-OP USE ONLY
ondansetron 4 mg tablet,disintegrating
4 mg PO Q6H PRN (Reason: n/v) Qty: 20 0RF
Rx Instructions:
take 1/2h b/f pain med if recurrent nausea
allow to dissolve in mouth w/o water
oxycodone 5 mg tablet
5 mg PO Q6H PRN (Reason: 1 tab moderate pain, 2 tabs severe pain) Qty: 30 0RF
Rx Instructions:
Ongoing therapy
POST-OP USE ONLY
metoprolol succinate [Toprol XL] 25 mg tablet extended release 24 hr
25 mg PO BID Qty: 90 1RF
Patient Comments:
last took 09/05/25 at 0700
Rx Instructions:
begin now pre-op
aspirin 325 mg Tablet
325 mg PO DAILY Qty: 30 0RF
Rx Instructions:
Take daily x4 weeks for blood clot prevention.
docusate sodium 100 mg Capsule
100 mg PO BID Qty: 30 0RF
Saccharomyces boulardii 250 mg Capsule
250 mg PO BID Qty: 14 0RF
Rx Instructions:
Over the counter. Take while on antibiotic.
If unavailable, choose a different probiotic.
lidocaine 4 % Adhesive Patch,Medicated
2 patch topical DAILY Qty: 30 0RF
Rx Instructions:
Over the counter. 12 hours on, 12 hours off.
Apply to sides of left knee/thigh.
sennosides [Grace-krysten] 8.6 mg Tablet
17.2 mg PO BID Qty: 30 0RF
meloxicam 15 mg tablet
15 mg PO DAILY PRN (Reason: breakthrough pain) Qty: 14 0RF
Rx Instructions:
Prescribed pre-operatively. Take with food.
DO NOT take within 2 hours of Aspirin post-surgery.
acetaminophen 650 mg Tablet Extended Release
1,300 mg PO Q8H Qty: 60 0RF
Rx Instructions:
DO NOT exceed >4000 mg daily.
Alternative dosin mg every 4 hours while awake.
hydrochlorothiazide 25 mg tablet
25 mg PO DAILY Qty: 30 0RF
Rx Instructions:
HOLD IF systolic blood pressure <130 while on post-surgical narcotics.
losartan 100 mg Tablet
100 mg PO DAILY Qty: 1 0RF
Rx Instructions:
HOLD IF systolic blood pressure <130 while on post-surgical narcotics.
diclofenac sodium 1 % Gel
2 g TOPICAL DAILYPRN PRN (Reason: left shoulder pain) Qty: 50 0RF
Patient Comments:
left shoulder
Referrals:
Nesha Mead CRNP [Family Provider, Family Practice]
Interventions
Interventions:
*Risk Screen - Suicide Last Done: 09/16/25 14:03
*General Assessment Last Done: 09/16/25 12:33
*Neglect/Abuse Screening Last Done: 09/16/25 14:03
ED-Skin Assessment Last Done: 09/16/25 14:03
Discharge Date and Time
Print Language: JAPANESE
[2025-09-16] MEDS: DILAUDID 0.5 MG IV ×2 (14:21→19:44)
[2025-09-16 16:49] LABS: C-Reactive Protein 40.80 mg/L (0.0-10.00)
--- NOTE | 2025-09-16 17:19 | HPS.HSE ---
Addendum entered and electronically signed by Margoth Harris MD 09/16/25 19:03:
This is an addendum to H&P written by Fatimah Umanzor on 09/16/2025. �Patient seen and examined independently with [facility].
75-year-old female past medical history of osteoarthritis status post total left knee replacement once 09/05, hypertension, sinus tachycardia, colonic stricture bowel obstruction status post bowel resection, ischemic colitis, history of
benzodiazepine overdose/suicide attempt, presenting with left knee pain worsening today and swelling after recent left knee replacement and inability to bear weight.
Vital signs show tachycardia at 111.
Labs show hemoglobin of 9.7 which is stable.
Knee x-ray showed unchanged left knee arthroplasty. �No fracture dislocation or bony destructive process. �There is some anterior soft tissue swelling without bubbles or air-fluid levels. �
Patient with worsening left knee pain after recent total left knee arthroplasty. �Does not appear like hematoma or cellulitis. �Tylenol and meloxicam, Dilaudid for pain. �Orthopedics consulted.
Did develop a little bit of itching possibly from the Dilaudid. �Benadryl to be given.
Original Note:
Family Physician
-
Family Physician: MIGUE Mercedes
Chief Complaint
-
increased left knee pain, erythema and edema
History of Present Illness
Patient is a 75-year-old female with past medical history significant for hypertension, diverticulitis and anemia who presented to [facility] ED for evaluation of increased left knee pain, erythema and edema. Patient reports left knee replacement with
Faisal on 09/05/2025. She reports she has been doing well post surgery, has been able to manage with PRN pain medications and complete therapy as ordered. She states she woke this morning and by 0900 she realized she was not going to be able to go
to therapy r/t inability to ambulate like she has been able to do. She reports increased pain, erythem and edema started today as well. Denies any fever, chills, trauma, cough, shortness of breath, chest pain, nausea or vomiting.
Medical History
Past Medical History
Past Medical History: Reports Other
Additional Past Medical History:
hypertension
diverticulitis
anemia
Past Surgical History: Reports Other
Additional Past Surgical History:
L Knee replacement 09/05/25
R hip replaced 2009
R knee replaced 2017
Tubal ligation 1985
Hernia repair 1990
Bilateral cataracts
colostomy with reversal
Social History
Tobacco: Former Smoker (quit >40 years ago)
Alcohol: Occasional
Drug: None
Personal:
Living: With Family
Employment: Retired
Family History
Family History: Not pertinent
Allergies / Home Medications
Allergies reflects when Allergies were last updated in [facility].
Home Medications with original date entered in [facility]
Allergy/Medication List:
Allergies
Allergy/AdvReac Type Severity Reaction Status Date / Time
amoxicillin (From Augmentin) Allergy WORSENING Verified 09/16/25 12:33
DIARRHEA
cefadroxil Allergy Rash Verified 09/16/25 14:08
clavulanic acid (From Allergy WORSENING Verified 09/16/25 12:33
Augmentin) DIARRHEA
metronidazole (From Flagyl) Allergy IV- Severe Verified 09/16/25 12:33
Jaw Pain
Penicillins Allergy Rash Verified 09/16/25 12:33
Home Medications
escitalopram oxalate 20 mg tablet 20 mg PO DAILY Mental Health/Anxiety 07/26/24
cholecalciferol (vitamin D3) 25 mcg (1,000 unit) tablet (Vitamin D3) 25 mcg PO DAILY Supplement 12/19/24
pantoprazole 40 mg tablet,delayed release 40 mg PO BID before meals 12/19/24
ascorbic acid (vitamin C) 1,000 mg tablet (Vitamin C) 1,000 mg PO DAILY Supplement 08/22/25
magnesium 250 mg tablet 250 mg PO DAILY Supplement 08/22/25
qimsrvejjzxy-yklbvnrc-olesfd tablet 1 tab PO DAILY Supplement 08/22/25
psyllium husk 0.4 gram capsule (Metamucil) 1.6 g PO DAILY Constipation 08/22/25
metoprolol succinate 25 mg tablet,extended release 24 hr (Toprol XL) 25 mg PO BID tachycardia/bp #90 tabs 08/26/25
Saccharomyces boulardii 250 mg capsule 250 mg PO BID #14 caps 09/06/25
acetaminophen 650 mg tablet,extended release 1,300 mg (2 x 650 mg) PO Q8H #60 tabs 09/06/25
aspirin 325 mg tablet 325 mg PO DAILY #30 tabs 09/06/25
diclofenac sodium 1 % topical gel 2 g topical DAILYPRN PRN left shoulder pain #50 grams 09/06/25
docusate sodium 100 mg capsule 100 mg PO BID #30 caps 09/06/25
hydrochlorothiazide 25 mg tablet 25 mg PO DAILY Fluid Retention/Swelling #30 tabs 09/06/25
lidocaine 4 % topical patch 2 patch topical DAILY #30 ea 09/06/25
losartan 100 mg tablet 100 mg PO DAILY Blood Pressure #1 tab 09/06/25
meloxicam 15 mg tablet 15 mg PO DAILY PRN breakthrough pain #14 tabs 09/06/25
sennosides 8.6 mg tablet (Grace-krysten) 17.2 mg (2 x 8.6 mg) PO BID #30 tabs 09/06/25
Review of Systems
-
History Source: Patient
Constitutional: Denies Fever or Chills
EENT: Denies Sore Throat
Respiratory: Denies Cough, Hemoptysis or Trouble Breathing
Cardiac: Denies Chest Pain, Diaphoresis, Palpitations or Syncope
Abdomen/GI: Denies Abdominal Pain, Nausea, Vomiting or Diarrhea
: Denies Dysuria, Frequency or Urgency
Musculoskeletal: Reports Joint Pain (left knee ), Joint Swelling (left knee ) and Edema (left knee )
Skin: Reports Other (surgical incision left knee with patrice ); Denies Rash
Neurological: Denies Dizzy, Weakness or Numbness
Hematologic/Lymphatic: Denies Bleeding
Physical Exam
Vital Signs
Vital Signs
Temp Pulse Resp BP Pulse Ox
98.1 F 111 20 142/84 98
09/16/25 12:33 09/16/25 12:33 09/16/25 12:33 09/16/25 12:33 09/16/25 14:22
Physical Exam
General: Well Developed, Well Nourished, No Apparent Distress, Conversant and Obese
HEENT: NormoCephalic, Moist mucous membranes, PERRLA, Nose Appears Normal and Ears Appear Normal
Respiratory: Clear and Non Labored Respirations
Cardiac: S1/S2 and Regular Rhythm
GI: Soft, Non Tender, Non Distended and Normal Bowel Sounds
Musculoskeletal: No Clubbing, No Cyanosis and Other (left knee tender, erythema and edema present, decreased ROM )
Skin: Warm, IV/Catheter Site and Other (left knee surgical incision, well approximated with patrice in place )
Neuro: Awake and AO x 3
Hematologic/Lymphatic: No Lymphadenopathy
Psych: Calm
Laboratory Results
-
09/16/25 12:43
09/16/25 12:43
Laboratory Results
Lactic Acid 1.0 mmol/L (0.7-2.0) 09/16/25 12:43
Total Bilirubin 0.6 mg/dl (0.2-1.3) 09/16/25 12:43
AST 25 U/L (14-36) 09/16/25 12:43
ALT 16 U/L (0-35) 09/16/25 12:43
Alkaline Phosphatase 80 U/L (38-126) 09/16/25 12:43
Data Reviewed
-
Ultrasound: Report Reviewed by me (LLE: No evidence of deep venous thrombosis of the left lower extremity. )
Lab Data: Labs Reviewed by me (hgb 9.7, hct 32.0, CRP 40.80)
Impression/Plan
-
IMPRESSION/PLAN:
#ambulatory dysfunction 2/2 left knee pain/edema
s/p left knee replacement 09/05/[address] Malone
CRP 40.80
L Knee x-ray: Recently placed left knee arthroplasty is seen in anatomic position, unchanged.
There is no recent cortical fracture, dislocation or suspected focal bony destructive process.
There is some anterior soft tissue swelling without bubbles of air or air-fluid level. Overlying skin patrice are seen.
LLE US: No evidence of deep venous thrombosis of the left lower extremity.
- Admit to med/surg
- Consult PT/OT
- Consult Ortho
- pain regimen
#hypertension
- current regimen on hold for hypotension at home
- hold HCTZ and losartan
- restart metoprolol
- monitor VS
#anemia
hgb 9.7, hct 32.0
appears to be baseline
- monitor CBC
#depression
- continue escitalopram
Code status: full code
DVT prophylaxis: lovenox sq
[2025-09-16] MEDS: BENADRYL 25 MG PO (19:17)
[2025-09-16 19:21] VITALS: BP 177/91
--- NOTE | 2025-09-16 21:38 | W.PN.UPDATE ---
Update Note
Progress Note Update
The patient is a pleasant 75 yo female well known to me who is 11 days s/p left TKR performed at . She was discharged home the day after surgery and began PT as an outpatient. She notes that she was improving but noted increased swelling. She
had difficulty with ambulation earlier today secondary to pain and was admitted to for ambulatory dysfunction. The patient and her family were concerned with ecchymosis and swelling as well as concern for possible infection. She has received
pain meds and notes that she can range her knee much better and that her knee looks better than it did earlier today. Her daughters agree. She denies fevers. Examination reveals swelling and ecchymosis as expected. ROM is 0-100 degrees. Calf
soft, NVI distally. Incision CDI. US negative for DVT. Xrays reveal no specific abnormality. Plan: Admitted for ambulatory dysfunction. PT tomorrow. Patient feeling somewhat better. No signs of infection. No antibiotics. ASA for DVT
prophylaxis. Ortho will follow.
[2025-09-16] MEDS: TOPROL XL 25 MG PO (23:26)
[2025-09-16] MEDS: COLACE 100 MG PO (23:26)
[2025-09-16] MEDS: FLORASTOR 250 MG PO (23:26)
[2025-09-16] MEDS: PROTONIX 40 MG PO (23:26)
[2025-09-16] MEDS: SENOKOT 17.2 MG PO (23:26)
[2025-09-16] MEDS: TYLENOL 650 MG PO (23:28)
[2025-09-17] VITALS (7 sets, daily range): BP systolic 139–188; BP diastolic 81–100; PULSE 91; O2SAT 99; BMI 36.0; BMI 32.4
[2025-09-17 00:28] LABS: Hematocrit 29.8 % (37.0-47.0); Hemoglobin 9.1 g/dL (12.0-16.0); Mean Corp Hgb Conc. 30.5 g/dL (33.0-37.0); Mean Corpuscular Volume 102.1 fL (81.0-99.0); Platelet Count 303 10^3/uL (130-400); Red Cell Dist. Width 13.6 % (11.5-14.5)
[2025-09-17] MEDS: ULTRAM 50 MG PO ×2 (01:27→10:17)
[2025-09-17] MEDS: COZAAR 25 MG PO (02:14)
[2025-09-17] MEDS: TYLENOL 650 MG PO ×2 (04:09→09:49)
--- NOTE | 2025-09-17 06:33 | W.PN.UPDATE ---
Update Note
Progress Note Update
0130 pt with hypertension 180s/90. Does take losartan 100mg and hctz at home but since TKR meds ahve been held due to HYPOtension. Will start with 25mg losartan and reassess need for increase dose.
--- NOTE | 2025-09-17 07:45 | W.PN.ORTHO ---
Today's Communication / Plan
-
S/p left TKA 09/05/2025 - Dr. Malone
-continue WBAT with walker.
-PT/OT as able.
-Pain control.
-Depending on how PT goes today, may be ready for d/c home today.
-Will continue to follow along while inpatient.
Assessment
.
Dressing:
Clean, dry and intact.
Assessment:
S/p left TKA 09/05/2025 - Dr. Malone
-continue WBAT with walker.
-PT/OT as able.
-Pain control.
-Depending on how PT goes today, may be ready for d/c home today.
-Will continue to follow along while inpatient.
Plan
.
Surgery / Date: 09/05/2025 - L TKA Dr. Malone
DVT Prophylaxis: Aspirin
Activity:
Out of bed.
PT/OT
Discharge Plan: Home
Subjective
.
.:
Patient resting comfortably in bed. Doing better in regards to pain after receiving pain medication in the ED. Was able to get up and to the bathroom this morning with significantly less difficulty. Eager to get back home.
Vital Signs and Labs
.
Vital Signs and Labs:
Lab Results
09/16/25 23:56
09/16/25 12:43
Temp Pulse Resp BP Pulse Ox
99.4 F 88 16 159/84 98
09/17/25 00:30 09/17/25 04:08 09/17/25 00:30 09/17/25 04:08 09/17/25 00:30
Physical Exam
-
Left knee: incision c/d/i. Well approximated with patrice. ROM 0-100 degrees without pain. Expected post operative swelling. Minimal ecchymosis about anterior knee. N/v intact distally.
[2025-09-17] MEDS: TOPROL XL 25 MG PO (09:48)
[2025-09-17] MEDS: LEXAPRO 20 MG PO (09:49)
[2025-09-17] MEDS: COLACE 100 MG PO (09:49)
[2025-09-17] MEDS: SENOKOT 17.2 MG PO (09:49)
[2025-09-17] MEDS: ASPIRIN 325 MG PO (09:49)
[2025-09-17] MEDS: PROTONIX 40 MG PO (09:49)
[2025-09-17] MEDS: LIDOCAINE 4% PATCH 2 PATCH TOPICAL (09:50)
[2025-09-17] MEDS: FLORASTOR 250 MG PO (09:50)
[2025-09-17] MEDS: METAMUCIL, KONSYL 1 PACKET PO (09:50)
--- NOTE | 2025-09-17 11:09 | CM ---
CM reviewed chart, patient seen bedside, initial assessment completed.
Patient is a 75-year-old female presents with increasing swelling pain and redness to the left knee.
Patient resides with her in a split level home, one step to enter.
Patient has a RW on each level, bench in shower, grab bars.
Patient reports VN in past through [facility] after surgery, [facility] after surgery.
Patient confirms PCP Rajesh Galeano, Nesha Mead
Pharmacy [facility], confirms prescription coverage.
Patient denies insecurities at home.
[facility] form verbally reviewed, refused to sign, placed in chart, patient provided with copy.
Patient confirms transportation home from daughter- reports she does not feel she needs any VN/ home therapy.
Plan; home no needs.
--- NOTE | 2025-09-17 11:11 | W.PN.HOSP.TC ---
Addendum entered and electronically signed by Charlie Akins MD 09/17/25 11:36:
Confirmed with daughter and patient, they have enough supply of tramadol at this time.
Original Note:
Today's Communication/Plan
-
Monitor vital signs
see plan
PT/OT evaluated and patient is okay to go home with outpatient therapy
Discussed with daughter, restarted metoprolol and low-dose losartan
Continue to monitor blood pressure at home
Continue with pain management
Seen by orthopedics, okay for discharge home
Discharge home today
Time of discharge 36 minutes
Assessment / Plan
Assessment / Plan
General: Well Developed, Well Nourished, No Apparent Distress, Conversant and Obese
HEENT: NormoCephalic, Moist mucous membranes, PERRLA, Nose Appears Normal and Ears Appear Normal
Respiratory: Clear and Non Labored Respirations
Cardiac: S1/S2 and Regular Rhythm
GI: Soft, Non Tender, Non Distended and Normal Bowel Sounds
Musculoskeletal: (left knee tender, erythema and edema present )
Skin: Other (left knee surgical incision, well approximated with patrice in place )
Neuro: Awake and AO x 3
Psych: Calm
ambulatory dysfunction 2/2 left knee pain/edema-likely secondary to overexertion
s/p left knee replacement 09/05/[address] Malone
Evaluated by orthopedics, okay to go home with outpatient follow-up. No signs of infection at this time
L Knee x-ray: Recently placed left knee arthroplasty is seen in anatomic position, unchanged.
There is no recent cortical fracture, dislocation or suspected focal bony destructive process.
There is some anterior soft tissue swelling without bubbles of air or air-fluid level. Overlying skin patrice are seen.
LLE US: No evidence of deep venous thrombosis of the left lower extremity.
PT/OT evaluated, okay for outpatient therapy
Continue with pain regimen
#hypertension
- current regimen on hold for hypotension at home
- hold HCTZ and losartan; restarted losartan at 25mg. Uptitrate medication as needed. Discussed with patient and daughter
- restarted metoprolol
- monitor VS
Anemia of chronic disease
Appears to be at baseline
Continue to monitor
#depression
- continue escitalopram
Code status: full code
DVT prophylaxis: Full dose ASA
Anticipated Discharge: Today
Subjective/Interval History
-
Date of Service: September 17, 2025
feeling better
Objective Data
-
Labs:
Laboratory Results
09/16/25
23:56
WBC 7.5
Hgb 9.1 L
Hct 29.8 L
Plt Count 303
Vital Signs:
Vital Signs
Temp Pulse Resp BP Pulse Ox
98.4 F 84 18 144/89 97
09/17/25 08:15 09/17/25 09:48 09/17/25 08:15 09/17/25 09:48 09/17/25 08:15
I&O
09/16/25 09/17/25 09/18/25
06:59 06:59 06:59
Intake Total 120 / 120
Balance 120 / 120
--- NOTE | 2025-09-17 11:35 | W.DCSUMMARY ---
Discharge Summary
Discharge Data
Date of Admission: 09/16/25
Date of Discharge: 09/17/25
-
Pending Results: No
Hospital Course
75-year-old female with past medical history of hypertension, anemia of chronic disease, depression, recent left knee replacement came to the hospital with ambulatory dysfunction and knee swelling which was likely thought secondary to overexertion.
Patient was seen by orthopedics and was recommended to follow-up with them outpatient. Knee x-ray was done which did not show any signs of infection. Left lower extremity ultrasound was also done which was negative for DVT. Patient was evaluated
by physical therapy who recommended patient to continue outpatient therapy. Her blood pressure was also high since she was holding some of her blood pressure medication at home since it was low. Given these findings she was started back on
metoprolol and lower dose of her losartan. On discharge she was instructed to monitor her blood pressure at home and to uptitrate her medication as needed. Once her symptoms continue to improve, she was then discharged home with instructions to
follow-up with all her physicians outpatient.
Discharge Plan
-
Patient Disposition: Home (Routine Discharge)
Discharge Diagnosis/Procedures: Osteoarthritis status post left total knee replacement
Ambulatory dysfunction
Hypertension
Condition: Good
Diet: As tolerated
Activity: As tolerated and With Walker
Driving Restrictions: Not until seen by your Dr
Bathing Restrictions: None
Activity Restrictions/Additional Instructions:
We have lowered your losartan from 100 mg daily to 25 mg daily. Once your blood pressure is running higher then restart your home dose of losartan which is 100mg daily and discontinue 25 mg daily dose.
Referrals:
Jeremiah Malone MD [Active, Orthopedics]
Nesha Mead CRNP [Family Provider, Family Practice] - in less than 1 week
Prescriptions:
New
tramadol 50 mg Tablet
50 mg PO Q6HPRN PRN (Reason: moderate pain) Qty: 0 0RF
losartan 25 mg tablet
25 mg PO DAILY Qty: 30 0RF
Continued
escitalopram oxalate 20 mg Tablet
20 mg PO DAILY
cholecalciferol (vitamin D3) [Vitamin D3] 25 mcg (1,000 unit) Tablet
25 mcg PO DAILY
pantoprazole 40 mg tablet,delayed release (DR/EC)
40 mg PO BID
ascorbic acid (vitamin C) [Vitamin C] 1,000 mg Tablet
1,000 mg PO DAILY
magnesium 250 mg Tablet
250 mg PO DAILY
ictsdgljqoim-zurjywfe-ynsefq Tablet
1 tab PO DAILY
psyllium husk [Metamucil] 0.4 gram Capsule
1.6 g PO DAILY
metoprolol succinate [Toprol XL] 25 mg tablet extended release 24 hr
25 mg PO BID Qty: 90 1RF
Patient Comments:
last took 09/05/25 at 0700
Rx Instructions:
begin now pre-op
aspirin 325 mg Tablet
325 mg PO DAILY Qty: 30 0RF
Rx Instructions:
Take daily x4 weeks for blood clot prevention.
docusate sodium 100 mg Capsule
100 mg PO BID Qty: 30 0RF
Saccharomyces boulardii 250 mg Capsule
250 mg PO BID Qty: 14 0RF
Rx Instructions:
Over the counter. Take while on antibiotic.
If unavailable, choose a different probiotic.
lidocaine 4 % Adhesive Patch,Medicated
2 patch topical DAILY Qty: 30 0RF
Rx Instructions:
Over the counter. 12 hours on, 12 hours off.
Apply to sides of left knee/thigh.
sennosides [Grace-krysten] 8.6 mg Tablet
17.2 mg PO BID Qty: 30 0RF
meloxicam 15 mg tablet
15 mg PO DAILY PRN (Reason: breakthrough pain) Qty: 14 0RF
Rx Instructions:
Prescribed pre-operatively. Take with food.
DO NOT take within 2 hours of Aspirin post-surgery.
acetaminophen 650 mg Tablet Extended Release
1,300 mg PO Q8H Qty: 60 0RF
Rx Instructions:
DO NOT exceed >4000 mg daily.
Alternative dosin mg every 4 hours while awake.
diclofenac sodium 1 % Gel
2 g TOPICAL DAILYPRN PRN (Reason: left shoulder pain) Qty: 50 0RF
Patient Comments:
left shoulder
Held
hydrochlorothiazide 25 mg tablet
25 mg PO DAILY Qty: 30 0RF
Hold Instructions: Restart when blood pressure is greater than 140/90
Rx Instructions:
HOLD IF systolic blood pressure <130 while on post-surgical narcotics.
losartan 100 mg Tablet
100 mg PO DAILY Qty: 1 0RF
Hold Instructions: restart when blood pressure is greater than 140/90. When you restart, discontinue 25 mg daily dose
Rx Instructions:
HOLD IF systolic blood pressure <130 while on post-surgical narcotics.
Discharge Orders:
Discharge Patient (As Directed); Ordered 09/17/25
Ordered By: Charlie Akins
Discharge Date and Time
Discharge Date/Time: 09/17/25 13:33
Print Language: ROMANSH
[2025-09-17] MEDS: TYLENOL PO (13:08)
== END 2025-09-17 13:33 | disposition home or self-care (01) ==
LOC: 1 ACUTE 18:28
PROVIDERS: Emergency Medicine; Nurse Practitioner Family; ADMITTING PHYSICIAN Hospitalist; ATTENDING PHYSICIAN Internal Medicine; CONSULT PHYSICIAN Student in an Organized Health Care Education/Training Program; EMERGENCY PHYSICIAN Student in an Organized Health Care Education/Training Program; FAMILY PHYSICIAN Nurse Practitioner Family
DX: R26.2 Difficulty in walking, not elsewhere classified (principal); I10 Essential (primary) hypertension; Z87.891 Personal history of nicotine dependence; Z79.899 Other long term (current) drug therapy; D63.8 Anemia in other chronic diseases classified elsewhere; Z96.652 Presence of left artificial knee joint; M25.562 Pain in left knee; F32.A Depression, unspecified; Z96.641 Presence of right artificial hip joint
CPT/HCPCS: 73564; 80053; 83605; 85025; 85027; 85652; 86140; 93971; 96374; 97162; 97165; 99285; G0378